=== PATIENT | female | born 1935 | race Caucasian/White ===

== ENCOUNTER → 2016-09-05 | Outpatient (CLI) | payer MEDICARE, MEDICAID ==
[~2016-09-05] MED LIST: ADVAIR 250/501 EA INH; ALBUTEROL0.09 MG/A2 INH; ALDACTONE25 M1 PO; ASPIRIN E.C.325 MG PO; ASPIRIN81 M1; B12,B-12,B 12500 MC1 PO; BACTRIM SS PO; CARDIZEM CD240 MG PO; CIPRO500 MG PO; COLACE100 MG PO; COSOPT 2%-0.5%10 ML OS; CRESTOR10 M1 PO; DELTASONE10 MG PO; DOXYCYCLINE100 M3 PO; DULCOLAX5 MG PO; DUONEB 3 MG/3 ML3 M1 NEB; ENABLEX7.5 MG; HUMALOG100 U/ML SC; HYDROCHLOROTHIA25 M1 PO; ISOSORBIDE MONO60 MG; K + POTASSIUM20 MEQ PO; LANTUS SOLOS100 U/M1 SC; LANTUS100 U/ML; LANTUS100 U/ML SC; LASIX10 MG/M1 IV; LASIX20 MG PO; LASIX40 MG PO; LEVOFLOXACIN500 MG PO; LIPITOR20 MG PO; LISINOPRIL5 MG PO; LOPRESSOR25 MG PO; LOPRESSOR50 M1 PO; LOVENOX30 MG/0.3 SC; MECLIZINE HCL25 M2 PO; METOPROLOL SR100 MG; METOPROLOL50 MG PO; MICRO-K PO; MOM30 M1 PO; MUCINEX600 MG PO; NEURONTIN300 MG PO; NITROGLYCERIN0.4 MG SL; NOVOLIN R100 U/ML SC; NOVOLOG 70/30 M10 ML SC; NOVOLOG FLEX100 U/ML; NOVOLOG FLEX100 U/ML SC; NOVOLOG MI100 UNIT/1 SQ; OCUFLOX 0.3% 5 M5 ML OS; PLAVIX75 M1 PO; PLAVIX75 MG PO; PREDNICOT10 MG PO; PREDNICOT20 MG PO; PREDNISONE10 MG PO; PROAIR HFA0.09 MG/AC INH; PROAIR HFA8.5 GM INH; SOLU-MEDROL40 MG IV; TRAMADOL HCL50 MG PO; TYLENOL325 M1 PO; VENTOLIN H0.09 MG/AC INH; VESICARE5 MG PO; VIBRAMYCIN100 MG PO; VISTARIL25 M1 PO; VITAMIN B121000 MCG PO; VITAMIN D1000 IU PO; ZESTRIL5 MG PO
== END ==
LOC: LAB 09:51
DX: E11.22 Type 2 diabetes mellitus with diabetic chronic kidney disease (principal); N18.3 Chronic kidney disease, stage 3 (moderate); I25.10 Atherosclerotic heart disease of native coronary artery without angina pectoris; R60.9 Edema, unspecified; I25.2 Old myocardial infarction; Z95.1 Presence of aortocoronary bypass graft; M47.894 Other spondylosis, thoracic region

== ENCOUNTER → 2016-12-15 | Outpatient (CLI) | payer MEDICARE, MEDICAID ==
[2016-12-15 10:27] LABS: POTASSIUM 4.9 mmol/L (3.5-5.1)
== END | disposition home or self-care (01) ==
LOC: LAB 10:00
PROVIDERS: Nurse Practitioner Family
DX: E87.5 Hyperkalemia (principal)

== ENCOUNTER 2016-12-23 21:00 | Emergency (ER) | payer MEDICARE, MEDICAID ==
[~2016-12-23] VITALS: Ht 160 cm; Wt 89.8 kg
[2016-12-23 21:10] VITALS: BP 161/85
[2016-12-23 21:36] LABS: BASO % 0.6 % (0.0-1.0); EOS # 0.5 10*3/uL (0.0-0.4); EOS % 7.3 % (1.0-4.0); HEMATOCRIT 37.1 % (37.0-47.0); HEMOGLOBIN 11.3 g/dl (12.0-16.0); LYMPH # 2.2 10*3/uL (1.3-4.4); MEAN CELL VOLUME 93.7 fl (81.0-99.0); MEAN CORPUSCULAR HGB 28.5 pg (27.0-31.0); MEAN CORPUSCULAR HGB CONC 30.5 g/dl (33.0-37.0); MEAN PLATELET VOLUME 10.8 fl (9.6-12.3); MONO # 0.6 10*3/uL (0.1-1.0); MONO % 8.6 % (3.0-9.0); NEUT # 3.3 10*3/uL (2.3-7.9); NEUT % 50.3 % (47.0-73.0); PLATELET COUNT AUTOMATED 158 10*3/uL (130-400); RED BLOOD COUNT 3.96 10*6/uL (4.10-5.10); RED CELL DISTRI WIDTH 13.2 % (0-14.5); WHITE BLOOD COUNT 6.5 10*3/uL (4.8-10.8)
[2016-12-23 21:52] LABS: ALBUMIN 3.4 gm/dl (3.1-4.5); BILIRUBIN, TOTAL 0.3 mg/dl (0.2-1.0); POTASSIUM 4.4 mmol/L (3.5-5.1)
[2016-12-23] MEDS ORDERED: HYDROCODONE BIT1 T11 PO (23:14)
== END 2016-12-23 23:20 | disposition home or self-care (01) ==
LOC: ED 21:00
PROVIDERS: Registered Nurse
DX: M79.604 Pain in right leg (principal); E11.9 Type 2 diabetes mellitus without complications; Z79.4 Long term (current) use of insulin; Z88.0 Allergy status to penicillin; Z79.899 Other long term (current) drug therapy

== ENCOUNTER → 2017-01-04 | Outpatient (CLI) | payer MEDICARE, MEDICAID ==
[~2017-01-04] MED LIST changes: +HYDROCODONE BIT1 T11 PO
== END | disposition home or self-care (01) ==
LOC: CARD 11:50
DX: E78.2 Mixed hyperlipidemia (principal); I10 Essential (primary) hypertension; I25.9 Chronic ischemic heart disease, unspecified; R00.2 Palpitations; I25.10 Atherosclerotic heart disease of native coronary artery without angina pectoris

== ENCOUNTER → 2017-01-26 | Outpatient (CLI) | payer MEDICARE, MEDICAID ==
[2017-01-26 11:45] LABS: BASO % 0.3 % (0.0-1.0); EOS # 0.8 10*3/uL (0.0-0.4); EOS % 7.5 % (1.0-4.0); HEMATOCRIT 39.9 % (37.0-47.0); LYMPH # 3.2 10*3/uL (1.3-4.4); LYMPH % 30.6 % (27.0-41.0); MEAN CELL VOLUME 94.5 fl (81.0-99.0); MEAN CORPUSCULAR HGB 28.4 pg (27.0-31.0); MEAN CORPUSCULAR HGB CONC 30.1 g/dl (33.0-37.0); MEAN PLATELET VOLUME 10.9 fl (9.6-12.3); MONO % 9.5 % (3.0-9.0); NEUT # 5.5 10*3/uL (2.3-7.9); NEUT % 51.8 % (47.0-73.0); PLATELET COUNT AUTOMATED 199 10*3/uL (130-400); RED BLOOD COUNT 4.22 10*6/uL (4.10-5.10); RED CELL DISTRI WIDTH 13.5 % (0-14.5); WHITE BLOOD COUNT 10.5 10*3/uL (4.8-10.8)
[2017-01-26 11:47] LABS: BILIRUBIN NEGATIVE (NEGATIVE); BLOOD 3+ (NEGATIVE); CLARITY SL CLOUDY (CLEAR); COLOR YELLOW (YELLOW); GLUCOSE NEGATIVE (NEGATIVE); KETONE NEGATIVE (NEGATIVE); LEUKO ESTERASE 2+ (NEGATIVE); NITRITE NEGATIVE (NEGATIVE); PH 5.5 (5.0-9.0); PROTEIN 1+ (NEGATIVE); SPECIFIC GRAVITY 1.025 (1.005-1.030); UROBILINOGEN 0.2 E.U./dl (0.2-1.0)
[2017-01-26 12:03] LABS: URINE TP/CRE RATIO 0.4 (<0.21)
[2017-01-26 12:10] LABS: ALBUMIN 3.7 gm/dl (3.1-4.5); PHOSPHOROUS 3.2 mg/dL (2.5-4.9); POTASSIUM 5.7 mmol/L (3.5-5.1)
[2017-01-26 12:36] LABS: FERRITIN 46.9 ng/mL (10.0-291.0); PTH INTACT 277.7 pg/mL (14.0-72.0); VITAMIN D, 25-HYDROXY 14.4 ng/mL (30-100)
[2017-01-26 12:45] LABS: HEMOGLOBIN A1c 7.6 % (4.8-5.6)
[2017-01-26 13:08] LABS: BACTERIA 2+; RBC 21-30 rbc/hpf (0-2); WBC TNTC wbc/hpf (0-5); YEAST 1+
== END | disposition home or self-care (01) ==
LOC: LAB 11:16
PROVIDERS: Internal Medicine Nephrology
DX: E11.21 Type 2 diabetes mellitus with diabetic nephropathy (principal); E11.22 Type 2 diabetes mellitus with diabetic chronic kidney disease; N18.3 Chronic kidney disease, stage 3 (moderate); D63.1 Anemia in chronic kidney disease; E21.1 Secondary hyperparathyroidism, not elsewhere classified

== ENCOUNTER 2017-01-27 15:49 | Emergency (ER) | payer MEDICARE, MEDICAID ==
[~2017-01-27] VITALS: Ht 160 cm; Wt 89.8 kg
[2017-01-27 15:57] VITALS: BP 158/67
[2017-01-27 16:53] LABS: BASO % 0.3 % (0.0-1.0); EOS # 0.6 10*3/uL (0.0-0.4); EOS % 5.3 % (1.0-4.0); HEMATOCRIT 37.7 % (37.0-47.0); HEMOGLOBIN 11.4 g/dl (12.0-16.0); LYMPH % 17.5 % (27.0-41.0); MEAN CELL VOLUME 93.5 fl (81.0-99.0); MEAN CORPUSCULAR HGB 28.3 pg (27.0-31.0); MEAN CORPUSCULAR HGB CONC 30.2 g/dl (33.0-37.0); MEAN PLATELET VOLUME 10.9 fl (9.6-12.3); MONO % 8.9 % (3.0-9.0); NEUT # 7.8 10*3/uL (2.3-7.9); NEUT % 67.7 % (47.0-73.0); PLATELET COUNT AUTOMATED 171 10*3/uL (130-400); RED BLOOD COUNT 4.03 10*6/uL (4.10-5.10); RED CELL DISTRI WIDTH 13.5 % (0-14.5); WHITE BLOOD COUNT 11.6 10*3/uL (4.8-10.8)
[2017-01-27 17:03] LABS: POTASSIUM 5.6 mmol/L (3.5-5.1)
== END 2017-01-27 18:34 | disposition home or self-care (01) ==
LOC: ED 15:49
PROVIDERS: Emergency Medicine
DX: K11.20 Sialoadenitis, unspecified (principal); J45.909 Unspecified asthma, uncomplicated; I25.10 Atherosclerotic heart disease of native coronary artery without angina pectoris; I50.30 Unspecified diastolic (congestive) heart failure; M19.90 Unspecified osteoarthritis, unspecified site; E11.9 Type 2 diabetes mellitus without complications; Z79.4 Long term (current) use of insulin; I25.2 Old myocardial infarction; E78.5 Hyperlipidemia, unspecified; I12.9 Hypertensive chronic kidney disease with stage 1 through stage 4 chronic kidney disease, or unspecified chronic kidney disease; N18.9 Chronic kidney disease, unspecified; Z88.0 Allergy status to penicillin; Z79.899 Other long term (current) drug therapy

== ENCOUNTER → 2017-02-15 | Outpatient (CLI) | payer MEDICARE, MEDICAID | END | disposition home or self-care (01) | LOC: US 16:54 | DX: E04.2 Nontoxic multinodular goiter (principal) ==

== ENCOUNTER → 2017-03-10 | Outpatient (CLI) | payer MEDICARE, MEDICAID ==
[2017-03-10 10:54] LABS: BASO % 0.3 % (0.0-1.0); EOS # 0.9 10*3/uL (0.0-0.4); EOS % 10.4 % (1.0-4.0); HEMATOCRIT 37.5 % (37.0-47.0); HEMOGLOBIN 11.8 g/dl (12.0-16.0); LYMPH % 22.6 % (27.0-41.0); MEAN CELL VOLUME 90.8 fl (81.0-99.0); MEAN CORPUSCULAR HGB 28.6 pg (27.0-31.0); MEAN CORPUSCULAR HGB CONC 31.5 g/dl (33.0-37.0); MEAN PLATELET VOLUME 10.4 fl (9.6-12.3); MONO # 0.8 10*3/uL (0.1-1.0); MONO % 9.3 % (3.0-9.0); NEUT # 5.1 10*3/uL (2.3-7.9); NEUT % 57.2 % (47.0-73.0); PLATELET COUNT AUTOMATED 187 10*3/uL (130-400); RED BLOOD COUNT 4.13 10*6/uL (4.10-5.10)
[2017-03-10 11:27] LABS: ALBUMIN 3.4 gm/dl (3.1-4.5); BILIRUBIN, TOTAL 0.3 mg/dl (0.2-1.0); POTASSIUM 3.9 mmol/L (3.5-5.1)
== END ==
LOC: LAB 10:35
PROVIDERS: Nurse Practitioner Family
DX: I10 Essential (primary) hypertension (principal); E66.9 Obesity, unspecified

== ENCOUNTER 2017-05-07 06:10 | Inpatient (IN) | payer MEDICARE, MEDICAID ==
[~2017-05-07] VITALS: Ht 160 cm; Wt 91.7 kg
[2017-05-07] VITALS (13 sets, daily range): BP systolic 115–198; BP diastolic 66–98
--- NOTE | ~2017-05-07 | CON ---
[place], [place] REPORT OF CONSULTATION NAME: MARIA ISABEL [facility]ELICIANO [id number] UNIT #: [id number] ROOM: 503 DOCTOR: LIZBET WOODS DPM BIRTHDATE: [birth year] DOS: 05/09/2017 SUBJECTIVE: The patient presents is an 82-year-old female who we treated in our office for chronic venous insufficiency, lymphedema in both lower extremities. The patient had Unna boots placed last . PAST MEDICAL HISTORY: Asthma, coronary artery disease, chronic kidney disease, diastolic heart failure, DJD, type 2 diabetes, essential hypertension, hyperlipidemia, macular degeneration, throat cancer. PAST SURGICAL HISTORY: Back surgery, bladder suspension procedure, appendectomy, CABG, triple bypass 3 years ago, cardiac catheterization, hysterectomy, total knee replacement in 2008. SOCIAL HISTORY: Nonsmoker. Denies alcohol or illicit drug use. FAMILY HISTORY: Mother at 32 from kidney cancer. Father at 69 from [place]. ALLERGIES: PENICILLIN, IODINE. PHYSICAL EXAMINATION: EXTREMITIES: Lower extremity examination, the capillary fill time is normal to all digits bilateral foot. The patient's Unna boots are intact and still pristine at this time. There are just placed on . Additionally, the patient has pads to both arches for plantar fascitis. ASSESSMENT: Edema, lymphedema, venous insufficiency, bilateral leg. PLAN: The patient's Unna boots are pristine and can be left on until morning. At that point, they can be removed. The patient's legs can be cleaned and I will return for a new Unna boots application. If the patient is discharged before then, we will reapply them weekly on outpatient basis. LIZBET WOODS DPM CM:CONSTR:REPORT OF CONSULTATION 1222 05/12/17 0653 interface
[2017-05-07 07:01] LABS: BASO % 0.5 % (0.0-1.0); EOS # 0.5 10*3/uL (0.0-0.4); EOS % 7.3 % (1.0-4.0); LYMPH # 1.7 10*3/uL (1.3-4.4); LYMPH % 22.6 % (27.0-41.0); MEAN CELL VOLUME 87.7 fl (81.0-99.0); MEAN CORPUSCULAR HGB 27.1 pg (27.0-31.0); MEAN PLATELET VOLUME 10.9 fl (9.6-12.3); MONO % 12.8 % (3.0-9.0); NEUT # 4.2 10*3/uL (2.3-7.9); NEUT % 56.7 % (47.0-73.0); PLATELET COUNT AUTOMATED 185 10*3/uL (130-400); RED BLOOD COUNT 4.79 10*6/uL (4.10-5.10); RED CELL DISTRI WIDTH 13.5 % (0-14.5); WHITE BLOOD COUNT 7.4 10*3/uL (4.8-10.8)
--- NOTE | 2017-05-07 07:11 | NUR ---
PATIENT IS CURRENTLY IN RADIOLOGY AT THIS TIME. VANDANA BALDWIN
--- NOTE | 2017-05-07 07:15 | NUR ---
DR. ASTUDILLO MADE AWARE OF THE PULSE OX DECREASING, V.O. GIVEN FOR OXYGEN DECREASE OXYGEN SET AT 2 LITERS VIA NASAL CANNULA, V.O. REPEATED BACK AT THIS TIME. VANDANA BALDWIN
[2017-05-07 07:16] LABS: ALBUMIN 2.7 gm/dl (3.1-4.5); ALKALINE PHOSPHATASE 119 U/L (45-117); BUN 20 mg/dl (7-24); CHLORIDE 103 mmol/L (98-107); CREATININE 1.77 mg/dL (0.55-1.02); POTASSIUM 3.3 mmol/L (3.5-5.1); SGOT/AST 21 IU/L (3-35); SGPT/ALT 20 U/L (12-78); SODIUM 139 mmol/L (136-145); TOTAL PROTEIN 6.7 gm/dL (6.4-8.2)
--- NOTE | 2017-05-07 07:19 | NUR ---
PATIENT STATES THAT SHE HAS HAD A DECREASE IN PAIN AND CURRENTLY RATES HER PAIN A 7/10, SKIN IS PINK, WARM, AND DRY, RESPIRATIONS ARE EASY AND NONLABORED, CALL LIGHT IN REACH OF THE PATIENT, FAMILY IS IN THE ROOM WITH THE PATIENT, CONTINUING TO MONITOR THE PATIENT. DENNYRN
--- NOTE | 2017-05-07 07:29 | NUR ---
PATIENT STATED THAT SHE WAS COLD, PATIENT GIVEN A WARM BLANKET AT THIS TIME, PATIENT ASSISTED INTO POSITION OF COMFORT, CALL LIGHT IN REACH OF THE PATIENT, CONTINUING TO MONITOR THE PATIENT. VANDANA BALDWIN
--- NOTE | 2017-05-07 08:40 | NUR ---
PATIENT PLACED ON THE BED SULTANA IN ATTEMPTS TO COLLECT URINE. VANDANA BALDWIN
--- NOTE | 2017-05-07 08:45 | NUR ---
PATIENT WAS NOT ABLE TO URINATE SO THE PATIENT WAS REMOVED FROM THE BED SULTANA, PATIENT IS AWARE OF THE FACT THAT WE NEED URINE, STATES THAT SHE FEELS SHE IS UNABLE TO GIVE ANY URINE AT THIS TIME, THE WAS MADE AWARE OF THIS SITUATION, CONTINUING TO MONITOR THE PATIENT. VANDANA BALDWIN
--- NOTE | 2017-05-07 09:30 | NUR ---
V.O. GIVEN FOR STRAIGHT CATHETER FOR URINE BY DR. ASTUDILLO, V.O. REPEATED BACK TO DR. ASTUDILLO AT THIS TIME. VANDANA BALDWIN
[2017-05-07 09:39] LABS: BILIRUBIN NEGATIVE (NEGATIVE); BLOOD 3+ (NEGATIVE); CLARITY CLOUDY (CLEAR); COLOR YELLOW (YELLOW); GLUCOSE TRACE (NEGATIVE); KETONE NEGATIVE (NEGATIVE); LEUKO ESTERASE TRACE (NEGATIVE); NITRITE NEGATIVE (NEGATIVE); SPECIFIC GRAVITY 1.025 (1.005-1.030); UROBILINOGEN 0.2 E.U./dl (0.2-1.0)
--- NOTE | 2017-05-07 09:45 | NUR ---
MADE DR. ASTUDILLO AWARE OF THE PATIENTS BLOOD PRESSURE OF 186/92 DR. ASTUDILLO STATED THAT HE WOULD ORDER SOMETHING FOR HER BLOOD PRESSURE. VANDANA BALDWIN
[2017-05-07 09:48] LABS: BACTERIA 4+; WBC TNTC wbc/hpf (0-5)
--- NOTE | 2017-05-07 10:21 | NUR ---
PATIENT TAKEN TO ROOM 503-2 AND PLACED IN THE BED AND CARE TRANSFERRED TO HARRISON SUBRAMANIAN RN AND VANDANA PRATHER. VANDANA BALDWIN
--- NOTE | 2017-05-07 11:13 | NUR ---
MEDICATIONS VERIFIED BY PHARMACY
--- NOTE | 2017-05-07 11:17 | NUR ---
A 82, admitted to 5E, under the services of AYO Hair DO with a diagnosis of HIP PAIN. Chief complaint is RIGHT KNEE AND RIGHT HIP PAIN. Patient arrived via wheel chair from ER. Monitor applied. Initial assessment completed. Vital signs taken and recorded. AYO HAIR DO notified of admission to the unit. Orders received. See assessment for past medical history, medications and allergies. Patient and/or family oriented to unit. [facility] visitation policy reviewed. Clothing/patient valuable form completed. HARRISON SUBRAMANIAN
--- NOTE | 2017-05-07 19:30 | NUR ---
ASSUMED CARE OF PT AT THIS TIME, PT SITTING UP IN BED ALERT AND OREINTED, RESPS EASY AND NONLABORED CALL LIGHT WITH IN REACH
--- NOTE | 2017-05-07 20:39 | NUR ---
PT C/O RIGHT HIP PAIN ADMINSITERED NORCO PO PRN PER ORDERS, WILL MONITOR EFFECTS
--- NOTE | 2017-05-07 21:39 | NUR ---
PT REPORTS THAT PAIN LEVEL HAS DECREASED IN RIGHT HIP, NORCO PO PRN EFFECTIVE
[2017-05-08] VITALS: BP 170/79
--- NOTE | 2017-05-08 00:56 | NUR ---
PATIENT MEDICATED WITH NORCO FOR COMPLAINTS OF RIGHT HIP PAIN AT 0027 WITH EFFECTIVE RESULTS NOTED. RESTING IN BED WITH EYES CLOSED AT THIS TIME. NO SIGNS OR SYMPTOMS OF DISTRESS NOTED. WILL CONTINUE TO MONITOR. CALL LIGHT IN REACH.
--- NOTE | 2017-05-08 05:36 | NUR ---
PATIENT MEDICATED WITH NORCO FOR COMPLAINTS OF RIGHT HIP PAIN AT 0514 WITH SOME RELIEF FROM TH PAIN. WILL CONTINUE TO MONITOR. CALL LIGHT IN REACH.
--- NOTE | 2017-05-08 05:49 | NUR ---
PATIENT ALSO MEDICATED WITH DULCOLAX FOR COMPLAINTS OF CONSTIPATION. WILL MONITOR FOR EFFECTIVENESS.
[2017-05-08 06:34] LABS: BASO % 0.5 % (0.0-1.0); EOS # 0.5 10*3/uL (0.0-0.4); EOS % 8.6 % (1.0-4.0); HEMATOCRIT 39.1 % (37.0-47.0); HEMOGLOBIN 11.9 g/dl (12.0-16.0); LYMPH # 1.2 10*3/uL (1.3-4.4); LYMPH % 21.1 % (27.0-41.0); MEAN CELL VOLUME 90.3 fl (81.0-99.0); MEAN CORPUSCULAR HGB 27.5 pg (27.0-31.0); MEAN CORPUSCULAR HGB CONC 30.4 g/dl (33.0-37.0); MEAN PLATELET VOLUME 10.7 fl (9.6-12.3); MONO # 0.9 10*3/uL (0.1-1.0); MONO % 14.9 % (3.0-9.0); NEUT # 3.2 10*3/uL (2.3-7.9); NEUT % 54.7 % (47.0-73.0); PLATELET COUNT AUTOMATED 152 10*3/uL (130-400); RED BLOOD COUNT 4.33 10*6/uL (4.10-5.10); RED CELL DISTRI WIDTH 13.7 % (0-14.5); WHITE BLOOD COUNT 5.8 10*3/uL (4.8-10.8)
[2017-05-08 06:48] LABS: ALBUMIN 2.5 gm/dl (3.1-4.5); CREATININE 1.62 mg/dL (0.55-1.02); MAGNESIUM 1.9 mg/dL (1.5-2.1); PHOSPHOROUS 2.6 mg/dL (2.5-4.9); POTASSIUM 3.8 mmol/L (3.5-5.1)
[2017-05-08 06:59] LABS: THYROID STIM HORMONE (HS) 8.45 uIU/ml (0.358-4.75); TOTAL PROTEIN 5.9 gm/dL (6.4-8.2)
[2017-05-08 08:00] VITALS: BP 156/78
--- NOTE | 2017-05-08 09:33 | NUR ---
Received order for snf placement. process planner in to see patient to discuss. Patient stated she has been to [place] twice in the past and would like to go there again. Will contact Jessica and fax referral.
--- NOTE | 2017-05-08 09:40 | NUR ---
DR. WOODS HAS BEEN NOTIFIED OF CONSULT AND WILL SEE PATIENT TOMORROW.
--- NOTE | 2017-05-08 10:42 | NUR ---
Secure Software Assessor in to talk to patient. Patient states lives at home with family. There are 5 steps in the home. Physician: eddie grant Pharmacy: [facility] [place] [facility] services: none Patient's level of ADLs: MINIMAL ASSIST Patient has working utilities: all working DME: cane, walker, shower chair Follow-up physician's appointment after d/c: will be made by hospitalist nurse director upon discharge Does patient want to access PORTAL?: no Discharge plan with patient by mission planner, patient was referred to [facility], patient will need a 3 night stay to qualify, case management will follow . SHARAN MENDIOLA
--- NOTE | 2017-05-08 11:04 | NUR ---
PHYSICAL THERAPY PAtient evaluated on 5, full evaluation to follow. Continue with PT as per plan of care with fall, vertigo, 02 and acute debility precautions. Will require SNF for impaired mobility in order to return to home at (i) PL. PAtient is moderate complexity via chart review, tests and evaluation 61665. Thank you for this referral. Mirtha vargas,PT
[2017-05-08 12:00] VITALS: BP 160/72
[2017-05-08 13:03] VITALS: BP 160/72
--- NOTE | 2017-05-08 13:45 | NUR ---
PHYSICAL THERAPY Nayla seen this PM 1:1, Pt said that she was dizzy and just could not go this afternoon. Will check back tomorrow. EAGLE MARC DIRECTOR OF CONTENT MARKETING,
--- NOTE | 2017-05-08 14:53 | NUR ---
Occupational Therapy evaluation completed this date on 5 with full eval to follow. PRecautions included fall risk,poor standing tolerance, severe back pain, moderate complexity [id number]. Recommend OT per POC and SNF upon d/c to enable safe return home at [facility].Thank you for this referral. Dorie López OTR/l
--- NOTE | 2017-05-08 15:06 | NUR ---
Patient referred to [facility], waiting on acceptance.
[2017-05-08 16:00] VITALS: BP 166/96
[2017-05-08 20:00] VITALS: BP 146/80
--- NOTE | 2017-05-08 21:39 | NUR ---
NORCO GIVEN FOR PAIN IN LOWER BACK AND HIP. PAIN RATED 7/10 WILL MONITOR.
--- NOTE | 2017-05-08 22:15 | NUR ---
NORCO EFFECTIVE. NO C/O OF PAIN .
[2017-05-09] VITALS: BP 168/104
--- NOTE | 2017-05-09 00:40 | NUR ---
DR. NANCE NOTIFIED OF PATIENTS ELEVATED BLOOD PRESSURE. SEE NEW ORDERS AND FLOWSHEETS.
--- NOTE | 2017-05-09 02:15 | NUR ---
DR. NANCE NOTIFIED OF PATIENTS C/O HEAVINESS IN HER CHEST AND DIFFICULTY BREATHING. SEE NEW ORDERS. BLOOD PRESSURE REAVALUATED HYDRALAZINE EFFECTIVE.
[2017-05-09 04:00] VITALS: BP 178/86
--- NOTE | 2017-05-09 04:30 | NUR ---
NORCO GIVEN FOR BACK PAIN. PATIENT STILL C/O DIFFICULTY BREATHING AND HEAVINESS. SHE ALSO STATED THAT SHE HAD TO TAKE HER RING OFF BECAUSE IT WAS GETTING TOO TIGHT AND ID BAND WAS ALSO TIGHT. DR. NANCE NOTIFIED IV FLUIDS STOPPED. SEE NEW ORDERS.
--- NOTE | 2017-05-09 04:30 | NUR ---
NORCO GIVEN FOR PAIN IN LOWER BACK RATED 7/10. WILL MONITOR.
--- NOTE | 2017-05-09 05:15 | NUR ---
NORCO EFFECTIVE. PATIENT ASLEEP WITH RESPIRATIONS >12
--- NOTE | 2017-05-09 05:30 | NUR ---
PER PATIENT HER BREATHING HAS IMPROVED AND NORCO EFFECTIVE, PATIENT ASLEEP WITH RESPIRATIONS >12.
[2017-05-09 07:33] LABS: CREATININE 1.61 mg/dL (0.55-1.02); POTASSIUM 3.2 mmol/L (3.5-5.1)
[2017-05-09 08:00] VITALS: BP 146/68; BP 153/58
--- NOTE | 2017-05-09 08:35 | NUR ---
PHYSICAL THERAPY Mrs Jimenez was seen this AM 1:1 for her therapy. Pt was supine in bed, said that she just got back in bed from using the bedside commode. Pt said that her BP was up and she did not feel good this morning. Pt on 1 L o2 and was 98% at this time, BP 170/66. Nayla said that she just wants to sleep. I told her that i would stop back later today. EAGLE MACR MAINSPRING FABRICATION SUPERVISOR.
--- NOTE | 2017-05-09 09:03 | NUR ---
Hopsital exemption completed online in [employer] system. Patient has been accepted to [facility] and can go after 3 night stay on Monday05/10/17 if medically stable for discharge.
--- NOTE | 2017-05-09 10:43 | NUR ---
PHYSICAL THERAPY Back this AM to treat Nayla and she was eating her breakfast. EAGLE MARC INDOOR PLANT TECHNICIAN.
[2017-05-09 12:00] VITALS: BP 165/70
--- NOTE | 2017-05-09 13:13 | NUR ---
PHYSICAL THERAPY Back this PM to treat Mrs Jimenez for her therapy session and talked into her gait. Transfer supine/sit MIN A X 1, sitting balance CG X 1, X 5 min. Sit/stand standing balance with wheeled walker MOD A X 1. Then gait 32' X 1, with wheeled walker MOD A X 1, cueing for gait, walker turn safety. Pt on 1/2 L o2 and did not get SOB with this gait. Pt back supine in bed, call light and family in to visit, treatment time 18 min. EAGLE MARC HEEL SEWER.
[2017-05-09 16:00] VITALS: BP 137/60
--- NOTE | 2017-05-09 17:07 | NUR ---
PATIENT RELAXED, NO NEEDS VOICED AT THIS TIME. AWAKE & ALERT, WAITING ON DINNER.
[2017-05-09 20:00] VITALS: BP 170/71
--- NOTE | 2017-05-09 21:00 | NUR ---
DROWSY, RESTING IN BED WITH NO DISTRESS NOTED. RESPIRATIONS EASY. LUNGS DIMINISHED, CLEAR. PULSE OX 100% 0.5 L. BILATERAL UNNA BOOTS IN PLACE. CALL LIGHT WITHIN REACH. NO VOICED COMPLAINTS
--- NOTE | 2017-05-09 21:51 | NUR ---
MEDICATED WITH NORCO PER PRN ORDER FOR COMPLAINTS OF RIGHT HIP PAIN RATING A 6. CALL LIGHT WITHIN REACH. WILL MONITOR FOR EFFECTIVENESS
[2017-05-10] VITALS: BP 151/63
--- NOTE | 2017-05-10 | NUR ---
EARLIER NORCO EFFECTIVE. PATIENT RESTING WITH EYES CLOSED. RESPIRATIONS EASY. VSS. O2 REMAINS IN USE AT 0.5L AT PATIENT'S INSISTENCE. CALL LIGHT WITHIN REACH.
--- NOTE | 2017-05-10 06:00 | NUR ---
SLEPT THROUGHOUT NIGHT WIHT NO DISTRESS NOTED. RESPIRATIONS EASY. O2 REMAINS IN USE AT PATIENT'S INSISTENCE. BILATERAL UNNA BOOTS MAINTAINED. CALL LIGHT WITHIN REACH. NO VOICED COMPLAINTS THIS SHIFT
[2017-05-10 06:20] LABS: BASO % 0.3 % (0.0-1.0); EOS # 0.5 10*3/uL (0.0-0.4); EOS % 7.3 % (1.0-4.0); HEMATOCRIT 36.2 % (37.0-47.0); HEMOGLOBIN 10.9 g/dl (12.0-16.0); LYMPH # 1.5 10*3/uL (1.3-4.4); LYMPH % 23.7 % (27.0-41.0); MEAN CELL VOLUME 88.9 fl (81.0-99.0); MEAN CORPUSCULAR HGB 26.8 pg (27.0-31.0); MEAN CORPUSCULAR HGB CONC 30.1 g/dl (33.0-37.0); MEAN PLATELET VOLUME 11.3 fl (9.6-12.3); MONO % 15.6 % (3.0-9.0); NEUT # 3.3 10*3/uL (2.3-7.9); NEUT % 52.9 % (47.0-73.0); PLATELET COUNT AUTOMATED 143 10*3/uL (130-400); RED BLOOD COUNT 4.07 10*6/uL (4.10-5.10); WHITE BLOOD COUNT 6.2 10*3/uL (4.8-10.8)
[2017-05-10 06:48] LABS: CREATININE 1.6 mg/dL (0.55-1.02); POTASSIUM 3.4 mmol/L (3.5-5.1)
[2017-05-10 08:00] VITALS: BP 109/71; BP 160/80
--- NOTE | 2017-05-10 09:25 | NUR ---
case management visits with patient, patient has been accepted by and is able to go to [facility] today if medically stable, case management/case planner will follow
--- NOTE | 2017-05-10 11:20 | NUR ---
PATIENT SEEN 1:1 THIS DATE. IDENTIFIED BY NAME AND DATE OF . PATIENT COMPLETED STAND PIVOT XFER WYATT BED TO BEDSIDE COMMODE WITH USE FWW AND VERBAL CUES SAFETY. PATIENT COMPLETED TOILETING TASK WYATT WITH VERBAL CUES USE FWW SUPPORT ONE HANDED TECHNIQUES. PATIENT COMPLETED STAND PIVOT XFER BEDISIDE COMMODE TO BED CGA WITH USE FWW AND VERBAL CUES FWW MANAGEMENT THIS DATE. COMPLETED LB DRESSING HALIMA NON SLIP SOCKS PRIOR XFER THIS DATE DEP SECONDARY REPORTS BACK PAIN. EDUCATED PATIENT BENEFITS AE FOR INCREASE INDEPENDENCE. PATIENT COMPLETED STAND TOLERANCE ACTIVITY APPROX 30 SECONDS WITH C/O FATIGUE CGA USE FWW SUPPORT STANDING STATIC. PATIENT ASSISTED PER REQUEST SIT SUPINE TO REST MODA LIFT B LEGS INTO BED THIS DATE. CONTINUE TOWARDS PLAN OF CARE. JACOBY LUONG/Zaynab
[2017-05-10 12:00] VITALS: BP 156/83
--- NOTE | 2017-05-10 12:04 | NUR ---
PATIENT STATES THAT SHE DOES WANT TO BE A FULL CODE. NOTIFIED OF PATIENT'S PREFERNCE.
--- NOTE | 2017-05-10 13:39 | NUR ---
PHYSICAL THERAPY CO-SIGN I approve of the Phyical Therapy notes written above. BRANNON ADAM PT
--- NOTE | 2017-05-10 13:58 | NUR ---
Discharge instructions reviewed with patient/family. Patient receptive and verbalizes understanding. Follow-up care arranged. Written instructions given to patient/family. HEPLOCK REMOVED. PATIENT TRANSPORTED TO [facility] BY PRIVATE CAR (DAUGHTER). REPORT GIVEN TO KIMMY @ [facility]. YAMILKA MARCSU
--- NOTE | 2017-05-11 14:13 | NUR ---
OCCUPATIONAL THERAPY CO-SIGN I approve of the Occupational Therapy notes written above. ASHISH FLORES OTR/Zaynab
== END 2017-05-10 13:58 | disposition other institution (70) | DRG 555 ==
LOC: ED 06:10 → 5E 09:49 → EDHOLD 09:49 → 5E 09:55
PROVIDERS: Emergency Medicine Emergency Medical Services; Family Medicine; Internal Medicine; ADMIT Internal Medicine
DX: M25.551 Pain in right hip (principal); E43 Unspecified severe protein-calorie malnutrition; I13.0 Hypertensive heart and chronic kidney disease with heart failure and stage 1 through stage 4 chronic kidney disease, or unspecified chronic kidney disease; I50.32 Chronic diastolic (congestive) heart failure; E11.22 Type 2 diabetes mellitus with diabetic chronic kidney disease; E87.6 Hypokalemia; E78.5 Hyperlipidemia, unspecified; E11.42 Type 2 diabetes mellitus with diabetic polyneuropathy; I25.10 Atherosclerotic heart disease of native coronary artery without angina pectoris; N18.3 Chronic kidney disease, stage 3 (moderate); J45.909 Unspecified asthma, uncomplicated; H35.30 Unspecified macular degeneration; R31.9 Hematuria, unspecified; M19.90 Unspecified osteoarthritis, unspecified site; E66.01 Morbid (severe) obesity due to excess calories; M54.9 Dorsalgia, unspecified; R82.71 Bacteriuria; I87.2 Venous insufficiency (chronic) (peripheral); Z66 Do not resuscitate; Z51.5 Encounter for palliative care; Z96.651 Presence of right artificial knee joint; I25.2 Old myocardial infarction; Z88.0 Allergy status to penicillin; Z91.041 Radiographic dye allergy status; Z95.1 Presence of aortocoronary bypass graft; Z90.710 Acquired absence of both cervix and uterus; Z98.42 Cataract extraction status, left eye; Z82.49 Family history of ischemic heart disease and other diseases of the circulatory system; Z83.3 Family history of diabetes mellitus; Z82.3 Family history of stroke; Z80.51 Family history of malignant neoplasm of kidney; Z79.4 Long term (current) use of insulin; Z79.899 Other long term (current) drug therapy; Z68.35 Body mass index [BMI] 35.0-35.9, adult

== ENCOUNTER 2017-05-13 00:52 | Inpatient (IN) | payer MEDICARE, MEDICAID ==
[2017-05-13] VITALS (16 sets, daily range): BP systolic 131–199; BP diastolic 74–117
[~2017-05-13] VITALS: Ht 160 cm; Wt 92.0 kg
--- NOTE | ~2017-05-13 | CON ---
[place], [place] REPORT OF CONSULTATION NAME: MARIA ISABEL FELICIANO UNIT #: [id number] ROOM: 407 DOCTOR: LIZBET WOODS DPM BIRTHDATE: [birth year] DOS: 05/13/2017 SUBJECTIVE: The patient presents 82-year-old female who is readmitted apparently with shingles. The patient was seen on Monday for chronic venous insufficiency and lymphedema. The patient had Unna boots placed at the snf by Dr. Tolbert yesterday. PAST MEDICAL HISTORY: Coronary artery disease, asthma, chronic kidney disease, diastolic heart failure, DJD, type 2 diabetes, essential hypertension, hyperlipidemia, macular degeneration, throat CA. PAST SURGICAL HISTORY: Back surgery, bladder suspension procedure, appendectomy, CABG, triple bypass 3 years ago, cardiac catheterization, hysterectomy, total knee replacement in 2008. SOCIAL HISTORY: Denies smoking, alcohol or illicit drug use. ALLERGIES: PENICILLIN and IODINE. PHYSICAL EXAMINATION: EXTREMITIES: Lower extremity: The Unna boots which were placed yesterday are intact with no breakthrough drainage, no signs of complication. The bandages are in good condition and do not need to be changed until next week. ASSESSMENT: Chronic venous insufficiency, lymphedema, bilateral lower leg. PLAN: Evaluation and management, keep the Unna boots intact. If the patient is still in house on , I will change the Unna boot, otherwise they can be done on an outpatient basis. LIZBET WOODS DPM CM:CONSTR:REPORT OF CONSULTATION 1115 05/13/17 1156 interface
[2017-05-13 01:20] LABS: BASO % 0.6 % (0.0-1.0); EOS # 0.4 10*3/uL (0.0-0.4); EOS % 6.5 % (1.0-4.0); HEMATOCRIT 40.4 % (37.0-47.0); HEMOGLOBIN 12.6 g/dl (12.0-16.0); LYMPH # 2.1 10*3/uL (1.3-4.4); LYMPH % 30.5 % (27.0-41.0); MEAN CORPUSCULAR HGB 27.5 pg (27.0-31.0); MEAN CORPUSCULAR HGB CONC 31.2 g/dl (33.0-37.0); MEAN PLATELET VOLUME 10.4 fl (9.6-12.3); MONO # 0.8 10*3/uL (0.1-1.0); NEUT # 3.4 10*3/uL (2.3-7.9); NEUT % 50.3 % (47.0-73.0); PLATELET COUNT AUTOMATED 179 10*3/uL (130-400); RED BLOOD COUNT 4.59 10*6/uL (4.10-5.10); RED CELL DISTRI WIDTH 14.2 % (0-14.5); WHITE BLOOD COUNT 6.7 10*3/uL (4.8-10.8)
[2017-05-13 01:28] LABS: BILIRUBIN NEGATIVE (NEGATIVE); BLOOD 2+ (NEGATIVE); CLARITY SL CLOUDY (CLEAR); COLOR YELLOW (YELLOW); GLUCOSE 1+ (NEGATIVE); KETONE NEGATIVE (NEGATIVE); LEUKO ESTERASE NEGATIVE (NEGATIVE); NITRITE NEGATIVE (NEGATIVE); PH 7.5 (5.0-9.0); SPECIFIC GRAVITY 1.015 (1.005-1.030); UROBILINOGEN 0.2 E.U./dl (0.2-1.0)
[2017-05-13 01:30] LABS: ACT PARTIAL THROMBO TIME 23.6 SECONDS (20.8-31.5)
[2017-05-13 01:34] LABS: BACTERIA 1+
[2017-05-13 01:36] LABS: ALBUMIN 2.5 gm/dl (3.1-4.5); CREATININE 1.79 mg/dL (0.55-1.02); POTASSIUM 3.6 mmol/L (3.5-5.1); TOTAL PROTEIN 6.6 gm/dL (6.4-8.2)
[2017-05-13 01:37] LABS: TROPONIN I 0.068 ng/ml (<0.045)
[2017-05-13] MEDS ORDERED: PRINIVIL10 MG PO (02:14)
[2017-05-13] MEDS ORDERED: KLOR-CON M2020 ME1 PO (02:15)
[2017-05-13] MEDS ORDERED: MILK OF MA400 MG/5 M PO (02:15)
[2017-05-13] MEDS ORDERED: KENALOG 0.1%80 GM T (02:16)
[2017-05-13] MEDS ORDERED: COLACE100 MG PO (02:16)
[2017-05-13] MEDS ORDERED: Clopidogrel75 MG PO (02:18)
[2017-05-13] MEDS ORDERED: LOPRESSOR50 M1 PO (02:18)
[2017-05-13] MEDS ORDERED: NOVOLOG10 ML SQ (02:18)
[2017-05-13] MEDS ORDERED: OXYBUTYNIN5 MG PO (02:19)
[2017-05-13] MEDS ORDERED: LANTUS SOL100 UNIT/1 SQ (02:19)
[2017-05-13] MEDS ORDERED: TIMOLOL MALEATE10 ML OS (02:20)
[2017-05-13] MEDS ORDERED: DORZOLAMIDE HCL10 ML OS (02:20)
[2017-05-13] MEDS ORDERED: DUONEB 3 MG/3 ML3 M1 INH (02:21)
--- NOTE | 2017-05-13 03:46 | NUR ---
A 82 YEAR OLD FEMALE ADMITTED WITH HYPERTENSIVE EMERGENCY, INTRACTABLE PAIN, SHINGLES, AND DEHYDRATION UNDER DR. CHRISTIAN'S SERVICES.
--- NOTE | 2017-05-13 06:00 | NUR ---
DR. COBB NOTIFIED OF CRITICAL TROPONIN. NO NEW ORDERS.
--- NOTE | 2017-05-13 07:30 | NUR ---
TROPONIN 0.062 DR TREJO NOTIFIED.
--- NOTE | 2017-05-13 07:56 | NUR ---
Shingles rash to R upper thigh and going to groin area, along outside of R hip going to back. Dr. Wong aware. Will continue to monitor.
--- NOTE | 2017-05-13 10:08 | NUR ---
NORCO GIVEN FOR C/O PAIN TO LOWER ABD OF 9/10. WILL CONT TO MONITOR. CALL LIGHT IN REACH.
--- NOTE | 2017-05-13 11:06 | NUR ---
Shingles rash noted right lower back, to groin and right upper thigh. No drainage noted. No odor. Patient denies pain at time of assessment. Unnaboots to bilateral lower extremities applied by Dr. Major 05-12-17 intact. + 3 pitting edema noted to bilateral feet. Capillary refill <3 seconds. Calazime to rash on groin recommended.
--- NOTE | 2017-05-13 11:08 | NUR ---
GAMA EFF FOR PAIN. WILL CONT TO MONITOR. CALL LIGHT IN REACH.
--- NOTE | 2017-05-13 17:00 | NUR ---
SPOKE TO [facility] TO HAVE MED REC FAXED. AWAITING FAX.
--- NOTE | 2017-05-13 17:04 | NUR ---
MED REC UPDATED.
--- NOTE | 2017-05-13 17:36 | NUR ---
PT C/O INCREASED SOB THAT CAME ON THIS AFTERNOON PER PT WITH NO OTHER SYMPTOMS. LUNG DIMINISHED T/O. DR TREJO NOTIFIED OF C/O.
--- NOTE | 2017-05-13 22:30 | NUR ---
MORPHINE EFFECTIVE FOR PAIN.
--- NOTE | 2017-05-13 23:53 | NUR ---
PATIENT HAS BP OF 172/82 M. LABETALOL 10MG GIVEN. WILL REASSESS.
[2017-05-14] VITALS: BP 172/82
--- NOTE | 2017-05-14 01:16 | NUR ---
24 HR chart check completed.
[2017-05-14 01:39] VITALS: BP 168/72
[2017-05-14 06:12] LABS: BASO % 0.4 % (0.0-1.0); EOS # 0.5 10*3/uL (0.0-0.4); EOS % 9.8 % (1.0-4.0); HEMATOCRIT 34.8 % (37.0-47.0); LYMPH # 1.7 10*3/uL (1.3-4.4); LYMPH % 32.4 % (27.0-41.0); MEAN CORPUSCULAR HGB 27.5 pg (27.0-31.0); MEAN CORPUSCULAR HGB CONC 30.2 g/dl (33.0-37.0); MEAN PLATELET VOLUME 10.8 fl (9.6-12.3); MONO # 0.6 10*3/uL (0.1-1.0); MONO % 11.9 % (3.0-9.0); NEUT # 2.4 10*3/uL (2.3-7.9); NEUT % 45.1 % (47.0-73.0); PLATELET COUNT AUTOMATED 167 10*3/uL (130-400); RED BLOOD COUNT 3.82 10*6/uL (4.10-5.10); RED CELL DISTRI WIDTH 14.6 % (0-14.5); WHITE BLOOD COUNT 5.3 10*3/uL (4.8-10.8)
[2017-05-14 06:19] LABS: HEMOGLOBIN 10.5 g/dl (12.0-16.0); MEAN CELL VOLUME 91.1 fl (81.0-99.0)
[2017-05-14 06:33] LABS: CREATININE 1.6 mg/dL (0.55-1.02); MAGNESIUM 1.9 mg/dL (1.5-2.1); POTASSIUM 3.9 mmol/L (3.5-5.1)
[2017-05-14 08:00] VITALS: BP 160/70
[2017-05-14 12:00] VITALS: BP 148/62
[2017-05-14 16:00] VITALS: BP 145/57
--- NOTE | 2017-05-14 17:41 | NUR ---
PATIENT RESTING IN BED WITH NO COMPLAINTS VOICED AT THIS TIME. MEDICATIONS TAKEN WITHOUT DIFFICULTY. CLAL LIGHT IN REACH.
[2017-05-14 20:00] VITALS: BP 140/62; BP 140/66
[2017-05-15] VITALS: BP 148/72
[2017-05-15 04:13] VITALS: BP 145/70
[2017-05-15 07:20] LABS: BASO % 0.3 % (0.0-1.0); EOS # 0.4 10*3/uL (0.0-0.4); HEMATOCRIT 33.3 % (37.0-47.0); HEMOGLOBIN 9.9 g/dl (12.0-16.0); LYMPH % 33.5 % (27.0-41.0); MEAN CORPUSCULAR HGB CONC 29.7 g/dl (33.0-37.0); MEAN PLATELET VOLUME 10.7 fl (9.6-12.3); MONO # 0.6 10*3/uL (0.1-1.0); MONO % 10.3 % (3.0-9.0); NEUT # 2.8 10*3/uL (2.3-7.9); NEUT % 48.7 % (47.0-73.0); PLATELET COUNT AUTOMATED 177 10*3/uL (130-400); RED BLOOD COUNT 3.66 10*6/uL (4.10-5.10); RED CELL DISTRI WIDTH 14.7 % (0-14.5); WHITE BLOOD COUNT 5.8 10*3/uL (4.8-10.8)
[2017-05-15 07:47] LABS: CREATININE 1.96 mg/dL (0.55-1.02); POTASSIUM 4.6 mmol/L (3.5-5.1)
[2017-05-15 08:00] VITALS: BP 145/61
[2017-05-15] MEDS ORDERED: METOPROLOL TART50 M1 PO (09:52)
[2017-05-15] MEDS ORDERED: NYSTOP60 GM T (09:52)
[2017-05-15] MEDS ORDERED: LYRICA75 M1 PO (09:52)
[2017-05-15] MEDS ORDERED: ACYCLOVIR800 MG PO (09:52)
[2017-05-15] MEDS ORDERED: DULE1ARO INH (09:52)
--- NOTE | 2017-05-15 11:10 | NUR ---
Patient being discharged back to [facility], transportation scheduled for 12:00 noon with [facility]. NH, nursing and family notified.
--- NOTE | 2017-05-15 11:39 | NUR ---
Discharge instructions reviewed with patient/family. Patient receptive and verbalizes understanding. Follow-up care arranged. Written instructions given to patient/family. JAIRO REYES
== END 2017-05-15 11:39 | disposition home or self-care (01) | DRG 73 ==
LOC: ED 00:52 → 4E 03:06 → EDHOLD 03:06 → 4E 03:18
PROVIDERS: Internal Medicine; Student in an Organized Health Care Education/Training Program; ADMIT Internal Medicine
DX: B02.23 Postherpetic polyneuropathy (principal); E43 Unspecified severe protein-calorie malnutrition; N17.0 Acute kidney failure with tubular necrosis; E11.22 Type 2 diabetes mellitus with diabetic chronic kidney disease; E86.0 Dehydration; E11.65 Type 2 diabetes mellitus with hyperglycemia; I13.0 Hypertensive heart and chronic kidney disease with heart failure and stage 1 through stage 4 chronic kidney disease, or unspecified chronic kidney disease; I50.32 Chronic diastolic (congestive) heart failure; B36.9 Superficial mycosis, unspecified; I25.10 Atherosclerotic heart disease of native coronary artery without angina pectoris; I16.1 Hypertensive emergency; N18.4 Chronic kidney disease, stage 4 (severe); R74.0 Nonspecific elevation of levels of transaminase and lactic acid dehydrogenase [LDH]; J45.909 Unspecified asthma, uncomplicated; H35.30 Unspecified macular degeneration; E66.01 Morbid (severe) obesity due to excess calories; I87.2 Venous insufficiency (chronic) (peripheral); K80.20 Calculus of gallbladder without cholecystitis without obstruction; M19.90 Unspecified osteoarthritis, unspecified site; E78.5 Hyperlipidemia, unspecified; Z96.659 Presence of unspecified artificial knee joint; I89.0 Lymphedema, not elsewhere classified; Z95.1 Presence of aortocoronary bypass graft; Z90.49 Acquired absence of other specified parts of digestive tract; Z88.0 Allergy status to penicillin; Z79.899 Other long term (current) drug therapy; Z90.710 Acquired absence of both cervix and uterus; Z98.42 Cataract extraction status, left eye; Z95.5 Presence of coronary angioplasty implant and graft; Z82.49 Family history of ischemic heart disease and other diseases of the circulatory system; Z80.51 Family history of malignant neoplasm of kidney; Z79.4 Long term (current) use of insulin; Z82.3 Family history of stroke; Z83.3 Family history of diabetes mellitus; Z91.041 Radiographic dye allergy status; Z85.89 Personal history of malignant neoplasm of other organs and systems; Z68.35 Body mass index [BMI] 35.0-35.9, adult

== ENCOUNTER → 2017-05-31 | Outpatient (CLI) | payer MEDICARE, MEDICAID ==
[~2017-05-31] MED LIST changes: +ACYCLOVIR800 MG PO; +Clopidogrel75 MG PO; +DORZOLAMIDE HCL10 ML OS; +DULE1ARO INH; +DUONEB 3 MG/3 ML3 M1 INH; +KENALOG 0.1%80 GM T; +KLOR-CON M2020 ME1 PO; +LANTUS SOL100 UNIT/1 SQ; +LYRICA75 M1 PO; +METOPROLOL TART50 M1 PO; +MILK OF MA400 MG/5 M PO; +NOVOLOG10 ML SQ; +NYSTOP60 GM T; +OXYBUTYNIN5 MG PO; +PRINIVIL10 MG PO; +TIMOLOL MALEATE10 ML OS
== END | disposition home or self-care (01) ==
LOC: CT 08:00
DX: K80.20 Calculus of gallbladder without cholecystitis without obstruction (principal); R11.0 Nausea; Z90.710 Acquired absence of both cervix and uterus

== ENCOUNTER 2017-06-19 21:16 | Inpatient (IN) | payer MEDICARE, MEDICAID ==
[~2017-06-19] VITALS: Ht 160 cm; Wt 92.6 kg
--- NOTE | ~2017-06-19 | PR ---
[place], [place] PROGRESS NOTE NAME: [id number] UNIT #: [id number] ROOM: 529 DOCTOR: LIZBET WOODS DPM BIRTHDATE: [birth year] DOS: 06/22/2017 SUBJECTIVE: The patient was seen for followup of edema, lymphedema, bilateral lower extremities. OBJECTIVE: After removal of the Unna boots, there is edema, lymphedema, bilateral lower leg, but improved compared to her previous exam at the office last week. There is negative Homans sign. No signs of DVT. ASSESSMENT: Edema, lymphedema, bilateral lower extremities. PLAN: Evaluation and management. Unna boots were applied to both lower extremities. The patient will be seen in 1 week for followup at the office as she is being discharged today. LIZBET WOODS DPM CM:PNCOOKIE [id number] LIZBET WOODS DPM 06/22/17 1734 interface
--- NOTE | ~2017-06-19 | CON ---
[place], [place] REPORT OF CONSULTATION NAME: MARIA ISABEL FELICIANO UNIT #: [id number] ROOM: 529 DOCTOR: LIZBET WOODS DPM BIRTHDATE: [birth year] DOS: 06/20/2017 SUBJECTIVE: The patient was seen for followup of chronic lymphedema; edema, bilateral lower extremities. The patient was admitted with hip pain. The patient had been seen most recently at our office last where Unna boots were applied. PAST MEDICAL HISTORY: The patient has past medical history of coronary artery disease, asthma, ____, chronic kidney disease, diastolic heart failure, DJD, type 2 diabetes, essential hypertension, hyperlipidemia, macular degeneration, morbid obesity, severe protein calorie malnutrition, shingles, throat CA, transaminitis. PAST SURGICAL HISTORY: Back surgery, bladder suspension, appendectomy, CABG 3 years ago, cardiac catheterization, hysterectomy, total knee replacement in 2008. SOCIAL HISTORY: Denies alcohol, illicit drug use or smoking. FAMILY HISTORY: Mother from kidney cancer at age 32. Father at 69 from [place]. ALLERGIES: PENICILLIN AND IODINE. LOWER EXTREMITY EXAMINATION: The Unna boots which were applied last are pristine and intact with decreased edema. Negative Homans sign, bilateral legs. Capillary fill time normal to all digits, bilateral foot. ASSESSMENT: Chronic lymphedema; edema, bilateral lower extremities. PLAN: Evaluation and management. If the patient is still in house on , we will change the Unna boots. They are in perfect condition and can be left intact until . LIZBET WOODS DPM CM:CONSTR:REPORT OF CONSULTATION 1221 06/20/17 1247 interface
[2017-06-19 21:24] VITALS: BP 150/76
--- NOTE | 2017-06-19 22:15 | NUR ---
PT PROVIDED BLANKETS AN A PILLOW WITH SAFETY PRECAUTIONS INTACT AND CALL LIGHT WITHIN REACH.
[2017-06-19 23:38] LABS: BASO % 0.1 % (0.0-1.0); EOS # 0.1 10*3/uL (0.0-0.4); EOS % 0.6 % (1.0-4.0); HEMATOCRIT 40.7 % (37.0-47.0); HEMOGLOBIN 12.7 g/dl (12.0-16.0); LYMPH # 1.3 10*3/uL (1.3-4.4); MEAN CELL VOLUME 88.1 fl (81.0-99.0); MEAN CORPUSCULAR HGB 27.5 pg (27.0-31.0); MEAN CORPUSCULAR HGB CONC 31.2 g/dl (33.0-37.0); MEAN PLATELET VOLUME 11.1 fl (9.6-12.3); MONO # 0.6 10*3/uL (0.1-1.0); NEUT # 6.8 10*3/uL (2.3-7.9); NEUT % 77.1 % (47.0-73.0); PLATELET COUNT AUTOMATED 189 10*3/uL (130-400); RED BLOOD COUNT 4.62 10*6/uL (4.10-5.10); RED CELL DISTRI WIDTH 15.3 % (0-14.5); WHITE BLOOD COUNT 8.8 10*3/uL (4.8-10.8)
[2017-06-19 23:47] LABS: ALBUMIN 3.3 gm/dl (3.1-4.5); CREATININE 1.68 mg/dL (0.55-1.02); POTASSIUM 4.6 mmol/L (3.5-5.1); TOTAL PROTEIN 7.1 gm/dL (6.4-8.2)
[2017-06-20] VITALS (7 sets, daily range): BP systolic 141–176; BP diastolic 59–74
[2017-06-20 00:13] LABS: BILIRUBIN NEGATIVE (NEGATIVE); BLOOD 2+ (NEGATIVE); CLARITY SL CLOUDY (CLEAR); COLOR YELLOW (YELLOW); GLUCOSE NEGATIVE (NEGATIVE); KETONE 1+ (NEGATIVE); LEUKO ESTERASE NEGATIVE (NEGATIVE); NITRITE NEGATIVE (NEGATIVE); PH 7.5 (5.0-9.0)
[2017-06-20 00:22] LABS: EPITHELIAL CELLS 25-30; RBC 16-20 rbc/hpf (0-2)
[2017-06-20 00:23] LABS: BACTERIA TRACE
--- NOTE | 2017-06-20 02:00 | NUR ---
Time: 199 A 82 year old FEMALE admitted to 5E under services of GRACIE PETERSEN DO. Pt. arrived via bed from ER. Chief complaint: FALL. PRADEEP REINOSO
--- NOTE | 2017-06-20 02:54 | NUR ---
PATIENTS MED REC UPDATED VIA LIST FROM PATIENT.
--- NOTE | 2017-06-20 02:59 | NUR ---
PATIENT IS FULL CODE. STATES SHE HAS NEVER SIGNED PAPERS TO BE DNR. WILL NOTIFY MD IN AM.
--- NOTE | 2017-06-20 06:16 | NUR ---
PATIENT MEDICATED WITH PRN NORCO ORDERED FOR RIGHT SIDE, HIP AND LEG PAIN RATED AN 8
[2017-06-20 06:29] LABS: BASO % 0.4 % (0.0-1.0); EOS # 0.3 10*3/uL (0.0-0.4); EOS % 3.8 % (1.0-4.0); HEMATOCRIT 40.5 % (37.0-47.0); HEMOGLOBIN 12.6 g/dl (12.0-16.0); LYMPH # 1.7 10*3/uL (1.3-4.4); LYMPH % 21.9 % (27.0-41.0); MEAN CELL VOLUME 89.2 fl (81.0-99.0); MEAN CORPUSCULAR HGB 27.8 pg (27.0-31.0); MEAN CORPUSCULAR HGB CONC 31.1 g/dl (33.0-37.0); MEAN PLATELET VOLUME 11.5 fl (9.6-12.3); MONO % 12.2 % (3.0-9.0); NEUT # 4.8 10*3/uL (2.3-7.9); NEUT % 61.4 % (47.0-73.0); PLATELET COUNT AUTOMATED 202 10*3/uL (130-400); RED BLOOD COUNT 4.54 10*6/uL (4.10-5.10); RED CELL DISTRI WIDTH 15.4 % (0-14.5); WHITE BLOOD COUNT 7.9 10*3/uL (4.8-10.8)
--- NOTE | 2017-06-20 06:35 | NUR ---
DR WEST NOTIFIED OF PATIENTS CODE STATUS. ALSO NOTIFIED HIM OF PATIENTS EXCORIATED BREAST FOLDS. STATED HE WILL PUT ORDERS IN.
[2017-06-20 06:59] LABS: CREATININE 1.73 mg/dL (0.55-1.02); POTASSIUM 3.8 mmol/L (3.5-5.1)
[2017-06-20 07:17] LABS: ACT PARTIAL THROMBO TIME 22.7 SECONDS (20.8-31.5); INTERNATIONAL NORM RATIO 1.1 (2.0-3.5)
--- NOTE | 2017-06-20 09:00 | NUR ---
Offset Plate Maker in to talk to patient. Patient states lives at home with friend. There are few steps in the home. Physician: leila wooten Pharmacy: [facility] Home health services: none Patient's level of ADLs: INDEPENDENT Patient has working utilities: all working DME: none Follow-up physician's appointment after d/c: will be made by hospitalist nurse director upon discharge Does patient want to access PORTAL?: no Discharge plan discussed with patient, patient lives at home with a friend, states she gets around fine, patient states she will be going back home and denies any home needs. SHARAN MENDIOLA
--- NOTE | 2017-06-20 09:00 | NUR ---
Network Field Engineer in to talk to patient. Patient states lives at home with daughter and son in law. There are no steps in the home. Physician: cyndi batista Pharmacy: Home health services: [facility] Patient's level of ADLs: MINIMAL ASSIST Patient has working utilities: all working DME: cane and walker Follow-up physician's appointment after d/c: will be made by hospitalist nurse director upon discharge Does patient want to access PORTAL?: no Discharge plan discussed with patient, patient lives at home with daughter and son in law, she states she uses a walker or cane for ambulation, discussed with her a short term longterm stay for rehab prior to going back home and patient refused, stated that she was going back home and wanted current home health to continue, planner intern will notify [facility] when patient is medially stable for discharge. SHARAN MENDIOLA
--- NOTE | 2017-06-20 09:04 | NUR ---
PHYSICAL THERAPY PAtient eating breakfast at this time. Thank you for this referral. Mirtha Palacio,PT
--- NOTE | 2017-06-20 09:10 | NUR ---
Patient not available as she is eating breakfast. OTR will recheck at a later time. Dorie López OTR/l
--- NOTE | 2017-06-20 10:40 | NUR ---
Patient is currently active with [facility], will need resume home health order prior to discharge.
--- NOTE | 2017-06-20 11:50 | NUR ---
NOTIFIED DR BUTLER OF NEW CONSULT OF EXISTING PATIENT.DR BUTLER IS ROUNDING IN HOSPITAL PER HIS AGENCY TRAINER.
--- NOTE | 2017-06-20 11:54 | NUR ---
DR BUTLER ROUNDED AND PT UNNA BOOTS GOOD AND HE WILL CHANGE UNNA BOOTS MONDAY PER HER REGULAR SCHEDULED CHANGE.
--- NOTE | 2017-06-20 14:47 | NUR ---
PHYSICAL THERAPY PAtient evaluated on 5, full evaluation to follow. Continue with PT as per plan of care with fall, recent fall at home with right hip pain ( xray negative to date) and acute debility precautions. PAtient refuses return to SNF- will require 24/ family assist and complete home health services. PAtient is moderate complexity via chart review, tests and evaluation: 19058. Thank you for this referral. Mirtha Palacio,PT
--- NOTE | 2017-06-20 21:17 | NUR ---
PATIENT RESTING QUIETLY IN BED. A&OX3, PLEASANT AND COOPERATIVE WITH CARE. DENIES ANY PAIN AT THIS TIME, RESPIRS EASY/REG, NO SXS OF DISTRESS. CALL LIGHT IN REACH.
--- NOTE | 2017-06-20 22:16 | NUR ---
MEDICATED WITH PRN RESTORIL ORDERED FOR C/O INSOMNIA
[2017-06-21] VITALS: BP 164/72
--- NOTE | 2017-06-21 04:20 | NUR ---
SLEEPING, RESPIRATIONS EASY/REG, NO SXS OF DISTRESS. CALL LIGHT IN REACH
--- NOTE | 2017-06-21 06:25 | NUR ---
BLOOD SUGAR 121, NO COVERAGE NEEDED. PATIENT RESTING COMFORTABLY IN BED. NO DISTRESS NOTED. CALL LIGHT IN REACH.
[2017-06-21 06:27] LABS: BASO % 0.5 % (0.0-1.0); EOS # 0.5 10*3/uL (0.0-0.4); HEMATOCRIT 37.8 % (37.0-47.0); HEMOGLOBIN 11.7 g/dl (12.0-16.0); LYMPH % 30.6 % (27.0-41.0); MEAN CORPUSCULAR HGB 27.9 pg (27.0-31.0); MEAN PLATELET VOLUME 11.7 fl (9.6-12.3); MONO # 0.9 10*3/uL (0.1-1.0); MONO % 14.2 % (3.0-9.0); NEUT # 3.1 10*3/uL (2.3-7.9); NEUT % 47.5 % (47.0-73.0); PLATELET COUNT AUTOMATED 174 10*3/uL (130-400); RED CELL DISTRI WIDTH 15.5 % (0-14.5); WHITE BLOOD COUNT 6.5 10*3/uL (4.8-10.8)
[2017-06-21 06:34] LABS: ALBUMIN 2.9 gm/dl (3.1-4.5); CREATININE 1.85 mg/dL (0.55-1.02); PHOSPHOROUS 3.1 mg/dL (2.5-4.9); POTASSIUM 4.1 mmol/L (3.5-5.1); TOTAL PROTEIN 6.2 gm/dL (6.4-8.2)
[2017-06-21 08:00] VITALS: BP 170/76
--- NOTE | 2017-06-21 08:00 | NUR ---
PT IN BED SLEEPING, AROUSES EASILY. NO DISTRESS NOTED. LUNGS CLEAR AND DIMINISHED. EDEMA NOTED ON BILAT FEET. UNABLE TO FEEL PEDAL PULSES DUE TO UNABOOT. IV FLUSHED WITH NO PAIN OR C/O. PT DENIES PAIN, N/V/D. WILL CONTINUE TO MONITOR.
--- NOTE | 2017-06-21 08:48 | NUR ---
Patient not available for OT evaluation this am as she was slowly eating breakfast. OTR will check at a later time. Dorie López OTR/lyndsey
--- NOTE | 2017-06-21 09:00 | NUR ---
case management visits with patient, again discussed a discharge plan including a short term fpc for rehab prior to going back home, patient stated that she lives with her son and durajeever in law, son is disabled and she cares for him during the day, educated patient that if she wasn't able to care for herself, she wouldn't be able to care for her son, patient agreed and stated that she would consider SNf, but wanted to talk with her daughter first.
--- NOTE | 2017-06-21 09:30 | NUR ---
PHYSICAL THERAPY Pt was seen this AM 1:1 for her therapy session. Transfer supine/sit slow with MIN A X 1, sitting balance CGA X 1. Sit/stand and standing balance with wheeled wlaker MOD A X 1. Followed by gait total 85' X 1, MOD ASSEMBLER FISHING FLOATS X 1, with verbal cueing for gait safety, and walker, turns having no LOB this gait. Pt up in her bedside chair short rest followed by act Ex to bilateral LE with cueing for each Ex X 20 reps each X 2, with rest as needed. Pt with call light and phone. EAGLE MARC PRODUCE LABORER.
--- NOTE | 2017-06-21 10:18 | NUR ---
Occupational Therapy evaluation completed this date with full eval to follow. Precautions include fall risk, unaboots BLEs, low complexity level 11719. Recommend SNF upon d/c and OT per POC. Thank you for this referral. Dorie López OTR/l
--- NOTE | 2017-06-21 11:05 | NUR ---
case management visits with patient again, patient stated that she hadn't decided what to do yet and that her daughter was callind a facility in [place], to see if patient was able to go there, informed patient that we could do that if the daughter gave us the name of the facility, patient stated that daughter would be coming in sometime this am. asked patient's nurse to call case management when the daughter came in. also informed patient that if this facility didn't have any available beds, she would have to choose another facility, patient didn't want to do that until her daughter came in
[2017-06-21 11:41] VITALS: BP 162/78; BP 189/81
--- NOTE | 2017-06-21 12:08 | NUR ---
NOTIFIED OF CULTURE RESULTS.
--- NOTE | 2017-06-21 12:53 | NUR ---
case management talked with patient and daughter, patient and daughter would like referrals made to [facility] and [facility] in [place], will make referrals to both
--- NOTE | 2017-06-21 15:28 | NUR ---
Occupational Therapy evaluation completed this date on 5 with full eval to follow. PRecautions include fall risk, moderate complexity level 05709, neuropathy, BLE unaboots, IV UE. Recommend OT per pOC and SNF upon d/c to enable return home at [facility]. Thank you for this referral. Dorie López OTR/l
[2017-06-21 16:00] VITALS: BP 135/73
[2017-06-21 20:00] VITALS: BP 136/62
--- NOTE | 2017-06-21 22:55 | NUR ---
PT UP IN CHAIR, HS MEDS GIVEN, VITALS WNL, PT ALERT AND ORIENTED X 3, PLEASANT WITH NO COMPLAINTS AT THIS TIME. ALL SAFETY MEASURES IN PLACE. CALL LIGHT IN REACH.
[2017-06-22] VITALS: BP 134/56
--- NOTE | 2017-06-22 04:06 | NUR ---
24 HR chart check completed.
[2017-06-22 06:15] VITALS: BP 141/52
--- NOTE | 2017-06-22 06:20 | NUR ---
EKG DONE. DR. WEST ON THE UNIT AND LOOKED AT EKG. STATED "NOTHING NEW ON THIS EKG". PT. WAS PLACED ON 02 2L NC FOR COMFORT. EXAMINING PT. ORDERS RECEIVED.
--- NOTE | 2017-06-22 06:20 | NUR ---
PT C/O MIDSTERNAL, SHARP CHEST PAIN, DIZZINESS, AND WEAKNESS. VITALS OBTAINED, ALL WNL. STAT EKG ORDERED PER NURSING MEASURE. DR. WEST NOTIFIED AND STATES HE WILL BE UP TO THE FLOOR TO SEE HER.
[2017-06-22 06:24] LABS: BASO % 0.5 % (0.0-1.0); EOS # 0.7 10*3/uL (0.0-0.4); EOS % 9.3 % (1.0-4.0); HEMOGLOBIN 11.4 g/dl (12.0-16.0); LYMPH # 2.6 10*3/uL (1.3-4.4); LYMPH % 33.5 % (27.0-41.0); MEAN CELL VOLUME 90.9 fl (81.0-99.0); MEAN CORPUSCULAR HGB 27.3 pg (27.0-31.0); MEAN PLATELET VOLUME 11.7 fl (9.6-12.3); MONO % 12.5 % (3.0-9.0); NEUT # 3.3 10*3/uL (2.3-7.9); NEUT % 43.9 % (47.0-73.0); PLATELET COUNT AUTOMATED 176 10*3/uL (130-400); RED BLOOD COUNT 4.18 10*6/uL (4.10-5.10); RED CELL DISTRI WIDTH 15.7 % (0-14.5); WHITE BLOOD COUNT 7.6 10*3/uL (4.8-10.8)
--- NOTE | 2017-06-22 06:30 | NUR ---
PT GIVEN MORPHINE VIA IV FOR MID STERNAL CHEST PAIN, RATING IT A 10/10. WILL MONITOR FOR EFFECTIVENESS. CALL LIGHT IN REACH. 02 VIA NC RUNNING AT 2L AT THIS TIME COMFORT MEASURE.
--- NOTE | 2017-06-22 06:52 | NUR ---
PT STATES THAT MORPHINE EFFECTIVE. PAIN IS NOW A 5/10, PT RESTING IN BED WITH NO S/S OF DISTRESS. CXR OBTAINED AT THIS TIME.
[2017-06-22 07:08] LABS: ALBUMIN 2.7 gm/dl (3.1-4.5); CREATININE 2.11 mg/dL (0.55-1.02); POTASSIUM 4.7 mmol/L (3.5-5.1); TOTAL PROTEIN 6.3 gm/dL (6.4-8.2)
--- NOTE | 2017-06-22 07:15 | NUR ---
CALLED DAUGHTER, BRANNON, AND NOTIFIED HER OF PT. CONDITION AND TREATMENTS DONE AND PENDING AND BRANNON SAID SHE WOULD BE DONE. PT. ALERT AND WEEPY SAYS SHE FEELS WEAK/TIRED. PT. HAD RECIEVED MORPHINE.
--- NOTE | 2017-06-22 08:03 | NUR ---
MORPHINE 2MG IV GIVEN FOR CHEST PAIN RATING A 10/10. BED IS IN LOW POSITION. CALL LIGHT IS WITHIN REACH.
[2017-06-22 08:07] VITALS: BP 121/50
--- NOTE | 2017-06-22 08:15 | NUR ---
NOTIFIED DR ADAMSON THAT PATIENT IS STILL HAVING CHEST PAIN.
--- NOTE | 2017-06-22 09:12 | NUR ---
In to see patient, daughter at bedside. Discussed snf placement and provided list of facilities. Patient asked for referral to 1. [facility] in [place] or 2. [facility]. Faxed referral to both locations, waiting on acceptance.
[2017-06-22 11:56] VITALS: BP 137/61
--- NOTE | 2017-06-22 12:40 | NUR ---
PHYSICAL THERAPY Patient was resting comfortably in bed with several visitors present upon therapist arrival. Patient requested to defer therapy visit to pm so she could spend time with her visitors. Will continue this pm per POC as tolerated. Carlitos Canchola, TRAY LINE WORKER
--- NOTE | 2017-06-22 13:33 | NUR ---
[facility] does not have any available beds at this time. [facility] has accepted this patient and Jessica at [facility] stated this patient had just been discharged from their facility on June 14, 2017, therefore does not require a 3 night stay. Patient can go today if ready for discharge.
--- NOTE | 2017-06-22 13:45 | NUR ---
Hospitalists office stated patient can be discharged today at 4PM. Up to see patient, daughter had to leave for a little while. Explained to patient there was no available beds in [place] at [facility] but [facility] has excepted her and she will be discharged today. Patients daughter will be back to transport her around 4 PM.
[2017-06-22] MEDS ORDERED: Insulin Lispro, Reco SC (14:05)
--- NOTE | 2017-06-22 15:29 | NUR ---
CALLED NURSE TO NURSE REPORT TO [facility].
--- NOTE | 2017-06-22 15:40 | NUR ---
PHYSICAL THERAPY Patient seen this pm 1;1 for therapy supine in bed following lunch, with her daughter present, reporting 3/10 R hip pain. Patient transfers sup to sit EOB, Min A x 1 and performed seated B LE therex, all planes, 2 x 10 each to increase LE strength and demonstrated increased L LE weakness during LAQ. Patient also completed multiple sit to stand transfers with use of wh walker support, Min/CGA, tolerating < 1 minute static stand each trial. Patient returned to supine in bed, Mod A to scoot upwards towards HOB and remained with call light, telephone and tray table. Will continue per POC with all goals to improve functional transfers and mobility to reduce risk of falls. Carlitos Canchola, TETRYL BLENDER OPERATOR
--- NOTE | 2017-06-22 16:25 | NUR ---
Discharge instructions reviewed with patient/family. Patient receptive and verbalizes understanding. Follow-up care arranged. Written instructions given to patient/family. [place] REMOVED INTACT. PATIENT DISCHARGED BY WHEELCHAIR IN CARE OF SON. EVA CAMPA
--- NOTE | 2017-06-23 07:56 | NUR ---
PHYSICAL THERAPY CO-SIGN I approve of the Phyical Therapy notes written above. BRANNON ADAM PT
== END 2017-06-22 16:25 | disposition other institution (70) | DRG 555 ==
LOC: ED 21:16 → EDHOLD 06-20 00:43 → 5E 06-20 00:43
PROVIDERS: Internal Medicine; Nurse Practitioner Family; ADMIT Internal Medicine
DX: M25.551 Pain in right hip (principal); E43 Unspecified severe protein-calorie malnutrition; E11.22 Type 2 diabetes mellitus with diabetic chronic kidney disease; E11.65 Type 2 diabetes mellitus with hyperglycemia; I50.32 Chronic diastolic (congestive) heart failure; I13.0 Hypertensive heart and chronic kidney disease with heart failure and stage 1 through stage 4 chronic kidney disease, or unspecified chronic kidney disease; N18.3 Chronic kidney disease, stage 3 (moderate); R53.1 Weakness; R60.0 Localized edema; I89.0 Lymphedema, not elsewhere classified; Z96.659 Presence of unspecified artificial knee joint; E66.01 Morbid (severe) obesity due to excess calories; J45.909 Unspecified asthma, uncomplicated; I25.10 Atherosclerotic heart disease of native coronary artery without angina pectoris; M19.90 Unspecified osteoarthritis, unspecified site; E78.5 Hyperlipidemia, unspecified; R00.0 Tachycardia, unspecified; W06.XXXA Fall from bed, initial encounter; K80.20 Calculus of gallbladder without cholecystitis without obstruction; Z79.4 Long term (current) use of insulin; Z95.1 Presence of aortocoronary bypass graft; Z88.0 Allergy status to penicillin; Z91.041 Radiographic dye allergy status; Z79.899 Other long term (current) drug therapy; Z90.49 Acquired absence of other specified parts of digestive tract; Z90.710 Acquired absence of both cervix and uterus; Z98.61 Coronary angioplasty status; Z82.49 Family history of ischemic heart disease and other diseases of the circulatory system; Z82.3 Family history of stroke; Z80.51 Family history of malignant neoplasm of kidney; Z83.3 Family history of diabetes mellitus; Z68.36 Body mass index [BMI] 36.0-36.9, adult; Z85.818 Personal history of malignant neoplasm of other sites of lip, oral cavity, and pharynx; Y93.89 Activity, other specified; Y92.89 Other specified places as the place of occurrence of the external cause; Y99.8 Other external cause status

== ENCOUNTER 2017-08-12 17:28 | Inpatient (IN) | payer MEDICARE, MEDICAID ==
[~2017-08-12] VITALS: Ht 160 cm; Wt 89.6 kg
[~2017-08-12 17:28] MED LIST changes: +Insulin Lispro, Reco SC
[2017-08-12 17:52] VITALS: BP 151/61
[2017-08-12 18:12] LABS: BASO % 0.3 % (0.0-1.0); EOS # 0.4 10*3/uL (0.0-0.4); EOS % 4.8 % (1.0-4.0); HEMATOCRIT 37.2 % (37.0-47.0); HEMOGLOBIN 11.5 g/dl (12.0-16.0); LYMPH # 1.4 10*3/uL (1.3-4.4); LYMPH % 16.4 % (27.0-41.0); MEAN CELL VOLUME 87.7 fl (81.0-99.0); MEAN CORPUSCULAR HGB 27.1 pg (27.0-31.0); MEAN CORPUSCULAR HGB CONC 30.9 g/dl (33.0-37.0); MEAN PLATELET VOLUME 10.4 fl (9.6-12.3); MONO # 0.9 10*3/uL (0.1-1.0); MONO % 10.5 % (3.0-9.0); NEUT # 5.9 10*3/uL (2.3-7.9); NEUT % 67.7 % (47.0-73.0); PLATELET COUNT AUTOMATED 224 10*3/uL (130-400); RED BLOOD COUNT 4.24 10*6/uL (4.10-5.10); RED CELL DISTRI WIDTH 14.9 % (0-14.5); WHITE BLOOD COUNT 8.7 10*3/uL (4.8-10.8)
[2017-08-12 18:21] LABS: ACT PARTIAL THROMBO TIME 23.6 SECONDS (20.8-31.5)
--- NOTE | 2017-08-12 18:22 | NUR ---
PATIENT PLACED ON TONGSMAN BUT REFUSES TO PUT ON GOWN. PATIENT STATES " I WILL PUT IT ON IF I HAVE TO STAY." OTHERWISE COOPERATIVE AND CALM. VITALS STABLE. 96% ON RA
[2017-08-12 18:29] LABS: ALBUMIN 2.6 gm/dl (3.1-4.5); CREATININE 1.85 mg/dL (0.55-1.02); POTASSIUM 4.6 mmol/L (3.5-5.1); TOTAL PROTEIN 6.7 gm/dL (6.4-8.2)
[2017-08-12 18:30] LABS: TROPONIN I 0.028 ng/ml (<0.045)
[2017-08-12 18:58] VITALS: BP 157/63
--- NOTE | 2017-08-12 18:58 | NUR ---
PT SITTING IN BED NO COMPLAINTWS VOICED FAMILY AT BEDSIDE CALL LIGHT IN REACH
[2017-08-12 19:20] VITALS: BP 148/65
--- NOTE | 2017-08-12 20:05 | NUR ---
PT SITTING UP IN BED VOICES NO COMPLAINTS CALL LIGHT IN REACH
[2017-08-12 20:06] VITALS: BP 145/74
--- NOTE | 2017-08-12 21:20 | NUR ---
ATTEMPTED TO CALL REPORT NURSE DID NOT COME TO PHONE
--- NOTE | 2017-08-12 21:21 | NUR ---
PER PT REQUEST LASIX GIVEN RIGHT BEFORE GOING TO HER ROOM
[2017-08-12 21:28] VITALS: BP 138/51
--- NOTE | 2017-08-12 21:30 | NUR ---
NUTRITION INTERNSHIP CALLED FROM [facility] SAID NURSE WAS STARTING IV AND SHE WILL RETURN CALL WHEN SHE IS DONE
--- NOTE | 2017-08-12 21:50 | NUR ---
A 82, admitted to 5E, under the services of GUTIERREZ Laws DO with a diagnosis of ACUTE CHF. Chief complaint is SHORTNESS OF BREATH. Patient arrived via stretcher from ER. Monitor applied. Initial assessment completed. Vital signs taken and recorded. GUTIERREZ ALWS DO notified of admission to the unit. Orders received. See assessment for past medical history, medications and allergies. Patient and/or family oriented to unit. [facility] visitation policy reviewed. Clothing/patient valuable form completed. Patients medication reconciliation was completed with the patient, but unable to verify medications with pharmacy because they were closed. ARIA PARRISH
[2017-08-12 22:00] VITALS: BP 124/81
--- NOTE | 2017-08-12 23:20 | NUR ---
TYLENOL WAS GIVEN PER PATIENT REQUEST FOR C/O HEADACHE WITH PAIN RATED 8/10. WILL MONITOR.
[2017-08-13] VITALS: BP 155/70; BP 158/72
--- NOTE | 2017-08-13 00:10 | NUR ---
TYLENOL WAS EFFECTIVE. PATIENT IS COMFORTABLE AND SATISFIED.
--- NOTE | 2017-08-13 03:40 | NUR ---
NOTIFIED DR. CRAFT ABOUT PATIENT BEING PLACED ON IV LASIX AND GETTING UP EVERY 30-45 MINUETS TO TOILET. I REQUESTED A MAHONEY CATH BE PLACED BECAUSE THE PATIENT BECOMES SOB WITH MINIMAL EXERTION AND ITS VERY TAXING ON HER IN HER CURRENT CONDITION.PATIENT WAS NOT OPPOSSED, AND RELIEVED BECAUSE SHE HASN'T SLEPT AT ALL TONIGHT. SEE NEW ORDERS.
[2017-08-13 04:00] LABS: BASO % 0.3 % (0.0-1.0); EOS # 0.5 10*3/uL (0.0-0.4); EOS % 5.1 % (1.0-4.0); HEMOGLOBIN 10.9 g/dl (12.0-16.0); LYMPH # 1.8 10*3/uL (1.3-4.4); LYMPH % 18.2 % (27.0-41.0); MEAN CELL VOLUME 87.7 fl (81.0-99.0); MEAN CORPUSCULAR HGB 27.3 pg (27.0-31.0); MEAN CORPUSCULAR HGB CONC 31.1 g/dl (33.0-37.0); MONO # 1.1 10*3/uL (0.1-1.0); MONO % 11.6 % (3.0-9.0); NEUT # 6.2 10*3/uL (2.3-7.9); NEUT % 64.5 % (47.0-73.0); PLATELET COUNT AUTOMATED 211 10*3/uL (130-400); RED BLOOD COUNT 3.99 10*6/uL (4.10-5.10); RED CELL DISTRI WIDTH 14.9 % (0-14.5); WHITE BLOOD COUNT 9.7 10*3/uL (4.8-10.8)
[2017-08-13 04:09] LABS: ALBUMIN 2.5 gm/dl (3.1-4.5); PHOSPHOROUS 3.1 mg/dL (2.5-4.9); TOTAL PROTEIN 6.3 gm/dL (6.4-8.2)
[2017-08-13 04:10] LABS: FREE T4 0.9 ng/dl (0.76-1.46)
[2017-08-13 04:15] LABS: THYROID STIM HORMONE (HS) 5.53 uIU/ml (0.358-4.75)
[2017-08-13 04:25] LABS: ACT PARTIAL THROMBO TIME 24.7 SECONDS (20.8-31.5)
[2017-08-13 07:04] LABS: VITAMIN D, 25-HYDROXY 54.6 ng/mL (30-100)
[2017-08-13 08:00] VITALS: BP 144/50
[2017-08-13 12:00] VITALS: BP 144/50
[2017-08-13] MEDS ORDERED: VITAMIN D50000 UNIT PO (12:43)
[2017-08-13] MEDS ORDERED: CRESTOR10 M1 PO (12:43)
[2017-08-13] MEDS ORDERED: COSOPT PF EYE1 EACH OP (12:47)
[2017-08-13] MEDS ORDERED: VENTOLIN 02.5 MG/3 M INH (12:50)
[2017-08-13] MEDS ORDERED: NOVOLOG FL100 UNIT/1 SQ (12:51)
--- NOTE | 2017-08-13 12:51 | NUR ---
MED REC UP DATED PER [facility]
[2017-08-13 16:00] VITALS: BP 155/70
--- NOTE | 2017-08-13 17:48 | NUR ---
PHYSICAL THERAPY Patient evaluated today on level 5. full eval to follow; continue with pt per POC with fall risk, min to mod of 1 for transfers and bed mobility as well as gait with fww for 20 ft x 2 with SOB noted. Recommend resumption of home PT upon d/c home. patient is moderate complexity via chart review, tests and evaluation: [id number]. Thank you for this referral Andie Devries
[2017-08-13 20:00] VITALS: BP 156/63
--- NOTE | 2017-08-13 20:02 | NUR ---
PATIENT LAYING IN BED ASSISTED PATIENT WITH REPOSTIONING CALL LIGHT IN REACH SEE SHIFT ASSESSMENT
--- NOTE | 2017-08-13 22:40 | NUR ---
PATIENT RESTING IN CHAIR SAYS SHE FEELS BETTER SITTING IN THE CHAIR CO OF RACHEL TYLENOL GIVEN WILL REASSESS FOR EFFECTIVENESS OF MEDICATION SEE ASSESSMENT
[2017-08-14] VITALS: BP 138/55
--- NOTE | 2017-08-14 02:19 | NUR ---
MORPHINE WAS GIVEN PER PATIENT REQUEST FOR CHRONIC PAIN IN HER RIGHT LEG. PATIENT RATES PAIN 9/10. WILL CONTINUE TO MONITOR.
--- NOTE | 2017-08-14 05:40 | NUR ---
PATIENT RESTING IN CHAIR CALL LIGHT IN REACH NO CO AT THIS TIME SEE SHIFT ASSESSMENT
[2017-08-14 07:25] LABS: BASO % 0.5 % (0.0-1.0); EOS # 0.5 10*3/uL (0.0-0.4); EOS % 6.8 % (1.0-4.0); HEMATOCRIT 39.2 % (37.0-47.0); HEMOGLOBIN 12.1 g/dl (12.0-16.0); LYMPH # 1.5 10*3/uL (1.3-4.4); LYMPH % 20.5 % (27.0-41.0); MEAN CELL VOLUME 87.1 fl (81.0-99.0); MEAN CORPUSCULAR HGB 26.9 pg (27.0-31.0); MEAN CORPUSCULAR HGB CONC 30.9 g/dl (33.0-37.0); MONO % 13.7 % (3.0-9.0); NEUT # 4.3 10*3/uL (2.3-7.9); NEUT % 58.1 % (47.0-73.0); PLATELET COUNT AUTOMATED 230 10*3/uL (130-400); RED CELL DISTRI WIDTH 14.7 % (0-14.5); WHITE BLOOD COUNT 7.3 10*3/uL (4.8-10.8)
[2017-08-14 07:54] LABS: ALBUMIN 2.7 gm/dl (3.1-4.5); CREATININE 2.31 mg/dL (0.55-1.02); PHOSPHOROUS 3.6 mg/dL (2.5-4.9); POTASSIUM 3.8 mmol/L (3.5-5.1)
[2017-08-14 08:00] VITALS: BP 138/48
--- NOTE | 2017-08-14 08:19 | NUR ---
PT RESTING IN BED, NO DISTRESS NOTED. NO VOICED C/O. WILL MONITOR
--- NOTE | 2017-08-14 09:00 | NUR ---
Math Interventionist in to talk to patient. Patient states lives at home with son and daughter in law. There are no steps in the home. Physician: eddie grant Pharmacy: [facility] health services: [facility], nursing and pt Patient's level of ADLs: MINIMAL ASSIST Patient has working utilities: all working DME: cane and walker Follow-up physician's appointment after d/c: will be made by hospitalist nurse director upon discharge Does patient want to access PORTAL?: no Discharge plan discussed with patient, patient lives at home with son and daughter in law, she uses a cane or walker for ambulation, patient states she will be returning home when able and wants [facility] to continue, logistics planner will contact [facility] and notify them when patient is medically stable for discharge. SHARAN MENDIOLA
--- NOTE | 2017-08-14 10:50 | NUR ---
PHYSICAL THERAPY Mrs Jimenez seen this AM and had just gotten back in bed from her bedsid chair, Pt having her breakfast. Stopped back later this AM and Nayla was a little SOB and said not now, later. EAGLE MARC BEEF PLUCK TRIMMER.
[2017-08-14 12:00] VITALS: BP 138/48
[2017-08-14 12:15] VITALS: BP 136/87
--- NOTE | 2017-08-14 13:17 | NUR ---
PHYSICAL THERAPY Mrs Jimenez was seen this PM 1:1 for her therapy gait. Transfer supine/sit MIN A X 1, sitting balance supervision X 1, once up. Sit/stand and up on wheeled walker standing balance MIN A X 1. Then gait total 83' X 1, with CG X 1, no LOB and little cueing for gait, walker safety. Pt up in her bedside chair call light, phone. EAGLE MARC FINANCIAL INSTITUTION PRESIDENT.
[2017-08-14 16:00] VITALS: BP 153/60
--- NOTE | 2017-08-14 16:30 | NUR ---
PT SITTING UP IN CHAIR. NO DISTRESS NOTED. NO VOICED C/O. WILL MONITOR
--- NOTE | 2017-08-14 17:11 | NUR ---
This nurse was asked to see patient for BLE. Patient stated she gets her unna boots changed weekly. She takes them off the day before she has to shower then gets them replaced the following day. She stated there are no open wounds underneath that she is aware of at this time. She said they were last changed on monday the she follows with Dr. Major. I would recommend putting podiatry on if patient is still here come monday so unna boots can be replaced.
[2017-08-14 20:00] VITALS: BP 156/62
--- NOTE | 2017-08-14 22:17 | NUR ---
PATIENT RESTING IN BED CALL LIGHT IN REACH RESP ERNL SEE SHIFT ASSESSMENT
[2017-08-15] VITALS: BP 138/50
--- NOTE | 2017-08-15 01:28 | NUR ---
PATIENT IN CHAIR CALL LIGHT IN REACH NO CO AT THIS TIME SEE SHIFT ASSESSMENT
--- NOTE | 2017-08-15 05:25 | NUR ---
PATIENT RESTING IN BED [facility] SEE ASESSMENT
[2017-08-15 06:35] LABS: BASO % 0.5 % (0.0-1.0); EOS # 0.5 10*3/uL (0.0-0.4); EOS % 6.5 % (1.0-4.0); HEMATOCRIT 39.7 % (37.0-47.0); HEMOGLOBIN 12.4 g/dl (12.0-16.0); LYMPH # 1.7 10*3/uL (1.3-4.4); LYMPH % 20.7 % (27.0-41.0); MEAN CELL VOLUME 88.2 fl (81.0-99.0); MEAN CORPUSCULAR HGB 27.6 pg (27.0-31.0); MEAN CORPUSCULAR HGB CONC 31.2 g/dl (33.0-37.0); MEAN PLATELET VOLUME 10.6 fl (9.6-12.3); MONO # 0.9 10*3/uL (0.1-1.0); MONO % 11.3 % (3.0-9.0); NEUT % 60.8 % (47.0-73.0); PLATELET COUNT AUTOMATED 240 10*3/uL (130-400); RED CELL DISTRI WIDTH 14.6 % (0-14.5); WHITE BLOOD COUNT 8.3 10*3/uL (4.8-10.8)
[2017-08-15 06:48] LABS: POTASSIUM 3.7 mmol/L (3.5-5.1)
[2017-08-15 06:50] LABS: CREATININE 2.24 mg/dL (0.55-1.02); PHOSPHOROUS 3.2 mg/dL (2.5-4.9)
[2017-08-15 07:59] VITALS: BP 126/72
--- NOTE | 2017-08-15 08:00 | NUR ---
PT ALERT AND ORIENTATEDx3. VS STABLE. SKIN IS WARM, DRY AND INTACT. BILATERAL LOWER EXTREMITY 2+ PITTING EDMA. WEST BOOTS ARE ON LOWER EXTREMITIES, DRY AND INTACT. FEET ARE WARM, DRY AND INTACT, PERPHERIAL PULSE BOUNDING AND REGULAR. NO C/O SOB AT THIS TIME. HEART SOUNDS ARE NORMAL. LUNGS HAVE FINE RALES IN BILATERAL LOWER LOBES. BOWEL SOUNDSx4. MAHONEY CATH PATENT FOR CLEAR YELLOW URINE. PT DOES NOT C/O OF ANY DISCOMFORT OR PAIN AT THIS TIME WILL CONTINUE TO ASSESS. [facility]U MALONE [facility]
--- NOTE | 2017-08-15 08:00 | NUR ---
PT RESTING IN BED, NO DISTRESS NOTED.NO VOICED C/O . WILL MONITOR
--- NOTE | 2017-08-15 10:03 | NUR ---
PT UP IN CHAIR, RESTING. NO C/O SOB OR ANY PAIN AT THIS TIME. WILL CONTINUE TO ASSESS. [facility] MALONE [facility]
--- NOTE | 2017-08-15 10:08 | NUR ---
PHYSICAL THERAPY Mrs Jimenez was seen this AM 1:1 for her therapy session and improving. Transfer supine/sit sitting balance CGA X 1, sit/stand and up on wheeled walker CGA X 1. Followed by gait 55' X 2, CG X 1, no LOB and was pleased with her gait, no LOB, Pt up in her bedside chair call light student nurse present now. EAGLE MARC DIGITAL SALES DIRECTOR.
--- NOTE | 2017-08-15 11:41 | NUR ---
PT UP IN CHAIR WAITING ON LUNCH. NO C/O PAIN OR DISCOMORT AT THIS TIME. WILL CONTINUE TO ASSESS. [facility] MALONE [facility]
[2017-08-15 12:00] VITALS: BP 132/80
[2017-08-15 16:00] VITALS: BP 157/57
[2017-08-15 20:00] VITALS: BP 151/50
--- NOTE | 2017-08-15 20:00 | NUR ---
PT RESTING IN BED. NO S AND S OF ACUTE DISTRESS NOTED AT THIS TIME. RESPS EASY AND REGULAR. LAB RESULTS AND ORDERS REVIEWED. CALL LIGHT IN REACH.
[2017-08-16] VITALS: BP 158/59
--- NOTE | 2017-08-16 | NUR ---
ASSUMED CARE FOR THIS PT. AUTOMATIC AND MANUAL BP SLIGHTLY ELEVATED. PT RESTING QUIETLY IN RECLINER CHAIR. NO S/S OF HTN. PT DENIES CP. WILL CONT. TO MONITOR.
[2017-08-16 00:54] VITALS: BP 162/82
[2017-08-16 07:02] LABS: BASO % 0.4 % (0.0-1.0); EOS # 0.6 10*3/uL (0.0-0.4); EOS % 6.5 % (1.0-4.0); HEMATOCRIT 37.9 % (37.0-47.0); LYMPH # 1.8 10*3/uL (1.3-4.4); LYMPH % 19.7 % (27.0-41.0); MEAN CELL VOLUME 87.1 fl (81.0-99.0); MEAN CORPUSCULAR HGB 27.6 pg (27.0-31.0); MEAN CORPUSCULAR HGB CONC 31.7 g/dl (33.0-37.0); MEAN PLATELET VOLUME 10.7 fl (9.6-12.3); MONO # 1.2 10*3/uL (0.1-1.0); MONO % 12.9 % (3.0-9.0); NEUT # 5.4 10*3/uL (2.3-7.9); NEUT % 60.4 % (47.0-73.0); PLATELET COUNT AUTOMATED 236 10*3/uL (130-400); RED BLOOD COUNT 4.35 10*6/uL (4.10-5.10); RED CELL DISTRI WIDTH 14.2 % (0-14.5)
[2017-08-16 07:31] LABS: CREATININE 2.05 mg/dL (0.55-1.02); PHOSPHOROUS 2.6 mg/dL (2.5-4.9); POTASSIUM 3.2 mmol/L (3.5-5.1)
--- NOTE | 2017-08-16 08:00 | NUR ---
PT A&Ox3. VS STABLE. NO C/O PAIN OR DISCOMFORT. HEART SOUND REGULAR. LUNGS DIMINSHED IN LL. SKIN WARM, DRY AND INTACT. NO S/S OF BREAKDOWN. WEST BOOTS INTACT. JACQUELINE. SKIN TUGOR GOOD. PT DOES NOT C/O BEING SOB AT THIS TIME. MAHONEY CATH INTACT DRAINING CLEAR URINE. PT C/O NOT SLEEPING WELL THROUGH THE NIGHT. LIGHTS ARE DIMMED TO PROMOTE RELAXTION AND ENCOURGAED PT TO RELAX TODAY. [facility] MALONE [facility]
[2017-08-16 08:16] VITALS: BP 142/84
--- NOTE | 2017-08-16 09:47 | NUR ---
PHYSICAL THERAPY Patient presented to therapy in supine position with report of feeling tired , but otherwise better. Patient perforemd supine to sitting at EOB transfer with Supervision. Patient performed sit to stand transfer with CGA X 1. Patient performed gait with W/W for 30' x 1 with CGA X 1. Patient performed seated ther ex to the bilateral LEs x 20 reps each in all planes of movement. Patient was left in seated position with call light within reach. NATHALIE WILSON BARREL RIFLER HOOK
--- NOTE | 2017-08-16 11:57 | NUR ---
PT IN RECLINER. NO C/O SOB OR DISCOMFORT. FAMILY IN ROOM WITH PT. WILL CONTINUE TO ASSESS. [facility] MALONE [facility]
[2017-08-16 11:59] VITALS: BP 142/86
--- NOTE | 2017-08-16 12:03 | NUR ---
SW SPOKE WITH PT AND DTR. PT SAID THAT SHE HAS AN ASSESSMENT THIS AFTERNOON FOR THE [facility] PROGRAM. SW WILL CALL AND REQUEST THAT INSPECTOR CLIP ON SUNGLASSES COME TO HOSPITAL INSTEAD OF HER HOME. PT AGREED TO THIS.
--- NOTE | 2017-08-16 12:04 | NUR ---
WENCESLAO HENDERSON AAA11. CARTON FORMING MACHINE TENDER WILL NOTIFY NATIONAL INVESTIGATIVE PRODUCER THERESA THAT PT IS IN [facility] ROOM 521 -1 AND HAVE HER COME [facility] FOR [facility].
--- NOTE | 2017-08-16 12:39 | NUR ---
PT UP IN RECLINER. STATED "SOB GOES AWAY WHEN I SIT STRAIGHT UP." PLACED A PILLOW BEHIND PTS BACK. DAUGHTER IN TO VISIT. WILL CONTINUE TO MONITOR. [facility]U MALONE [facility]
[2017-08-16 16:00] VITALS: BP 144/63
--- NOTE | 2017-08-16 16:58 | NUR ---
PT WAS ASSESSED FOR HOME O2, AND DID NOT QUALIFY. MAINTAINED SPO2 OF 97% OR ABOVE AT ALL TIMES DURING THE ASSESSMENT.
[2017-08-16 20:00] VITALS: BP 169/90
--- NOTE | 2017-08-16 22:00 | NUR ---
PT RESTING IN BED NO ACUTE DISTRESS NOTED AT THIS TIME. RESPS EASY AND UNLABORED. CALL LIGHT IN REACH
[2017-08-17] VITALS: BP 160/70
--- NOTE | 2017-08-17 02:00 | NUR ---
PT RESTING IN BED WITH EYEYS CLOSED. NO S AND S OF ACUTE DISTRESS NOTED AT THIS TIME. CALL LIGHT IN REACH.
[2017-08-17 08:00] VITALS: BP 165/62
--- NOTE | 2017-08-17 09:15 | NUR ---
PATIENTS URINARY CATHETER REMOVED. PATIENT TOLERATED WELL. NO CONCERNS AT THIS TIME.
[2017-08-17] MEDS ORDERED: FUROSEMIDE40 MG PO (11:59)
[2017-08-17] MEDS ORDERED: K-TAB10 MEQ PO (11:59)
--- NOTE | 2017-08-17 12:12 | NUR ---
PATIENT IS BEING DISCHARGED TO HOME. THE PATIENT CAME TO THE HOSPITAL WITH UNNA BOOTS APPLIED BY DR. WOODS AND IS NOT DUE FOR THEM TO BE CHANGED UNTIL 08/18/17. DISCHARGE WOUND PHOTOS UNABLE TO COMPLETE.
--- NOTE | 2017-08-17 12:39 | NUR ---
Discharge instructions reviewed with patient/family. Patient receptive and verbalizes understanding. Follow-up care arranged. Written instructions given to patient/family. NEMESIO MORALEZ
--- NOTE | 2017-08-17 17:14 | NUR ---
PHYSICAL THERAPY CO-SIGN I approve of the Phyical Therapy notes written above. ANNIE ORELLANA
== END 2017-08-17 12:39 | disposition home or self-care (01) | DRG 291 ==
LOC: ED 17:28 → EDHOLD 20:40 → 5E 20:40
PROVIDERS: Hospitalist; Internal Medicine; Internal Medicine Nephrology; Nurse Practitioner Family; ADMIT Internal Medicine
DX: I13.0 Hypertensive heart and chronic kidney disease with heart failure and stage 1 through stage 4 chronic kidney disease, or unspecified chronic kidney disease (principal); E43 Unspecified severe protein-calorie malnutrition; N18.4 Chronic kidney disease, stage 4 (severe); E11.65 Type 2 diabetes mellitus with hyperglycemia; E66.01 Morbid (severe) obesity due to excess calories; E11.22 Type 2 diabetes mellitus with diabetic chronic kidney disease; I25.810 Atherosclerosis of coronary artery bypass graft(s) without angina pectoris; I50.33 Acute on chronic diastolic (congestive) heart failure; E78.2 Mixed hyperlipidemia; Z96.659 Presence of unspecified artificial knee joint; M19.90 Unspecified osteoarthritis, unspecified site; E53.8 Deficiency of other specified B group vitamins; D50.9 Iron deficiency anemia, unspecified; J45.909 Unspecified asthma, uncomplicated; R00.0 Tachycardia, unspecified; Z79.4 Long term (current) use of insulin; Z68.37 Body mass index [BMI] 37.0-37.9, adult; Z88.0 Allergy status to penicillin; Z91.041 Radiographic dye allergy status; Z90.49 Acquired absence of other specified parts of digestive tract; Z95.1 Presence of aortocoronary bypass graft; Z90.710 Acquired absence of both cervix and uterus; Z98.42 Cataract extraction status, left eye; Z95.5 Presence of coronary angioplasty implant and graft; Z80.51 Family history of malignant neoplasm of kidney; Z82.49 Family history of ischemic heart disease and other diseases of the circulatory system; Z79.899 Other long term (current) drug therapy; Z85.819 Personal history of malignant neoplasm of unspecified site of lip, oral cavity, and pharynx

== ENCOUNTER 2017-09-14 04:02 | Inpatient (IN) | payer MEDICARE, MEDICAID ==
[~2017-09-14] VITALS: Ht 160 cm; Wt 89.4 kg
[2017-09-14] VITALS (9 sets, daily range): BP systolic 129–186; BP diastolic 58–90
--- NOTE | ~2017-09-14 | CON ---
[place], [place] REPORT OF CONSULTATION NAME: [facility]ABEL [facility]O [facility] [id number] UNIT #: [id number] ROOM: 503 DOCTOR: LIZBET WOODS DPM BIRTHDATE: [birth year] DOS: 09/14/2017 HISTORY OF PRESENT ILLNESS: The patient presents as an 82-year-old female with chief complaint of edema, lymphedema of both lower extremities. The patient has a history of recent fall and was admitted. PAST MEDICAL HISTORY: Asthma, coronary artery disease, chronic kidney disease stage 4, diastolic heart disease, DJD, type 2 diabetes, essential primary hypertension, hyperlipidemia, macular degeneration, morbid obesity, severe protein calorie malnutrition, shingles, stroke, cancer, transaminitis. vitamin B12 deficiency. PAST SURGICAL HISTORY: History of back surgery, bladder suspension, appendectomy, triple bypass 3 years ago, cardiac catheterization, hysterectomy, total knee arthroplasty in 2008. SOCIAL HISTORY: Denies smoking, illicit drug use or alcohol. FAMILY HISTORY: Mother from kidney cancer at age 32. Father at 69 from [place]. ALLERGIES: PENICILLIN AND IODINE. PHYSICAL EXAMINATION: EXTREMITIES: Lower extremity examination: Edema, lymphedema, bilateral lower extremities with mild erythema to anterior bilateral lower legs. Negative Homans sign. No signs of DVT. No signs of abscess. Edema to the dorsal foot also noted. ASSESSMENT: Edema, lymphedema of both lower extremities with venous stasis and erythema. PLAN: Evaluation and management, applied Unna boots to both lower extremities and we will reappoint for followup. LIZBET WOODS DPM CM:CONSTR:REPORT OF CONSULTATION 1214 09/14/17 1948 interface
[~2017-09-14 04:02] MED LIST changes: +COSOPT PF EYE1 EACH OP; +FUROSEMIDE40 MG PO; +K-TAB10 MEQ PO; +NOVOLOG FL100 UNIT/1 SQ; +VENTOLIN 02.5 MG/3 M INH; +VITAMIN D50000 UNIT PO
[2017-09-14 06:37] LABS: BASO % 0.3 % (0.0-1.0); EOS # 0.2 10*3/uL (0.0-0.4); EOS % 1.7 % (1.0-4.0); HEMOGLOBIN 13.2 g/dl (12.0-16.0); LYMPH # 1.6 10*3/uL (1.3-4.4); LYMPH % 15.1 % (27.0-41.0); MEAN CELL VOLUME 84.8 fl (81.0-99.0); MEAN CORPUSCULAR HGB 26.7 pg (27.0-31.0); MEAN CORPUSCULAR HGB CONC 31.4 g/dl (33.0-37.0); MEAN PLATELET VOLUME 10.1 fl (9.6-12.3); MONO # 0.8 10*3/uL (0.1-1.0); MONO % 7.6 % (3.0-9.0); NEUT # 7.8 10*3/uL (2.3-7.9); NEUT % 74.9 % (47.0-73.0); PLATELET COUNT AUTOMATED 259 10*3/uL (130-400); RED BLOOD COUNT 4.95 10*6/uL (4.10-5.10); RED CELL DISTRI WIDTH 13.7 % (0-14.5); WHITE BLOOD COUNT 10.4 10*3/uL (4.8-10.8)
[2017-09-14 06:53] LABS: ALBUMIN 2.8 gm/dl (3.1-4.5); CREATININE 1.96 mg/dL (0.55-1.02); POTASSIUM 3.1 mmol/L (3.5-5.1); TOTAL PROTEIN 7.2 gm/dL (6.4-8.2)
[2017-09-14 06:54] LABS: TROPONIN I 0.032 ng/ml (<0.045)
[2017-09-14 06:58] LABS: TROPONIN I 0.032 ng/ml (<0.045)
[2017-09-14 11:37] LABS: BILIRUBIN NEGATIVE (NEGATIVE); BLOOD 3+ (NEGATIVE); CLARITY CLOUDY (CLEAR); COLOR YELLOW (YELLOW); GLUCOSE NEGATIVE (NEGATIVE); KETONE NEGATIVE (NEGATIVE); LEUKO ESTERASE 2+ (NEGATIVE); NITRITE NEGATIVE (NEGATIVE); SPECIFIC GRAVITY 1.025 (1.005-1.030); UROBILINOGEN 0.2 E.U./dl (0.2-1.0)
[2017-09-14 11:46] LABS: WBC TNTC wbc/hpf (0-5)
[2017-09-15 07:13] LABS: CREATININE 2.19 mg/dL (0.55-1.02); POTASSIUM 3.8 mmol/L (3.5-5.1)
[2017-09-15 08:00] VITALS: BP 149/61
[2017-09-15 12:00] VITALS: BP 156/64
[2017-09-15 16:00] VITALS: BP 152/74
[2017-09-15 20:00] VITALS: BP 173/70
[2017-09-16] VITALS: BP 145/56
[2017-09-16 08:00] VITALS: BP 155/58
[2017-09-16 10:53] LABS: BASO % 0.5 % (0.0-1.0); EOS # 0.6 10*3/uL (0.0-0.4); EOS % 7.7 % (1.0-4.0); HEMATOCRIT 37.8 % (37.0-47.0); HEMOGLOBIN 11.6 g/dl (12.0-16.0); LYMPH # 2.1 10*3/uL (1.3-4.4); LYMPH % 28.4 % (27.0-41.0); MEAN CELL VOLUME 86.9 fl (81.0-99.0); MEAN CORPUSCULAR HGB 26.7 pg (27.0-31.0); MEAN CORPUSCULAR HGB CONC 30.7 g/dl (33.0-37.0); MEAN PLATELET VOLUME 10.6 fl (9.6-12.3); MONO # 0.9 10*3/uL (0.1-1.0); MONO % 11.8 % (3.0-9.0); NEUT # 3.8 10*3/uL (2.3-7.9); NEUT % 51.3 % (47.0-73.0); PLATELET COUNT AUTOMATED 216 10*3/uL (130-400); RED BLOOD COUNT 4.35 10*6/uL (4.10-5.10); RED CELL DISTRI WIDTH 14.1 % (0-14.5); WHITE BLOOD COUNT 7.4 10*3/uL (4.8-10.8)
[2017-09-16 11:22] LABS: CREATININE 2.22 mg/dL (0.55-1.02); POTASSIUM 3.9 mmol/L (3.5-5.1)
[2017-09-16 12:00] VITALS: BP 162/78
[2017-09-16 16:00] VITALS: BP 149/57
[2017-09-16 20:00] VITALS: BP 154/58
[2017-09-17] VITALS: BP 154/74
[2017-09-17 08:00] VITALS: BP 158/72
[2017-09-17 08:12] VITALS: BP 164/72
[2017-09-17 12:00] VITALS: BP 164/62
[2017-09-17 16:00] VITALS: BP 158/80
[2017-09-17 20:00] VITALS: BP 170/60
[2017-09-18] VITALS: BP 156/65
[2017-09-18 08:00] VITALS: BP 163/60
[2017-09-18 12:00] VITALS: BP 167/78
[2017-09-18] MEDS ORDERED: CEFUROXIME250 MG PO (14:13)
[2017-09-18] MEDS ORDERED: VITAMIN D31000 UNI1 PO (14:13)
[2017-09-18] MEDS ORDERED: LEVEMIR100 UNIT/1 SC (14:13)
[2017-09-18] MEDS ORDERED: Insulin Lispro, Reco SC (14:13)
== END 2017-09-18 17:00 | disposition other institution (70) | DRG 690 ==
LOC: ED 04:02 → EDHOLD 06:16 → 5E 06:16
PROVIDERS: Hospitalist; Internal Medicine; Student in an Organized Health Care Education/Training Program
DX: N39.0 Urinary tract infection, site not specified (principal); E11.22 Type 2 diabetes mellitus with diabetic chronic kidney disease; N18.4 Chronic kidney disease, stage 4 (severe); E11.65 Type 2 diabetes mellitus with hyperglycemia; I50.30 Unspecified diastolic (congestive) heart failure; I50.32 Chronic diastolic (congestive) heart failure; I13.0 Hypertensive heart and chronic kidney disease with heart failure and stage 1 through stage 4 chronic kidney disease, or unspecified chronic kidney disease; I89.0 Lymphedema, not elsewhere classified; I87.8 Other specified disorders of veins; R29.6 Repeated falls; R53.81 Other malaise; W10.9XXA Fall (on) (from) unspecified stairs and steps, initial encounter; I25.10 Atherosclerotic heart disease of native coronary artery without angina pectoris; M15.9 Polyosteoarthritis, unspecified; J45.909 Unspecified asthma, uncomplicated; E66.01 Morbid (severe) obesity due to excess calories; H35.30 Unspecified macular degeneration; L53.9 Erythematous condition, unspecified; R52 Pain, unspecified; E78.5 Hyperlipidemia, unspecified; Z95.1 Presence of aortocoronary bypass graft; Z79.4 Long term (current) use of insulin; Z88.0 Allergy status to penicillin; Z91.041 Radiographic dye allergy status; Z90.710 Acquired absence of both cervix and uterus; Z82.49 Family history of ischemic heart disease and other diseases of the circulatory system; Z83.3 Family history of diabetes mellitus; Z82.3 Family history of stroke; Z80.51 Family history of malignant neoplasm of kidney; Z87.19 Personal history of other diseases of the digestive system; Z86.73 Personal history of transient ischemic attack (TIA), and cerebral infarction without residual deficits; Z68.33 Body mass index [BMI] 33.0-33.9, adult; Y93.89 Activity, other specified; Y92.89 Other specified places as the place of occurrence of the external cause; Y99.8 Other external cause status

== ENCOUNTER → 2017-11-14 | Outpatient (CLI) | payer MEDICARE ==
[~2017-11-14] MED LIST changes: +CEFUROXIME250 MG PO; +LEVEMIR100 UNIT/1 SC; +VITAMIN D31000 UNI1 PO
[2017-11-14 11:44] LABS: BASO % 0.4 % (0.0-1.0); EOS # 0.6 10*3/uL (0.0-0.4); EOS % 5.5 % (1.0-4.0); HEMATOCRIT 42.7 % (37.0-47.0); HEMOGLOBIN 13.1 g/dl (12.0-16.0); LYMPH # 2.7 10*3/uL (1.3-4.4); LYMPH % 25.5 % (27.0-41.0); MEAN CELL VOLUME 89.1 fl (81.0-99.0); MEAN CORPUSCULAR HGB 27.3 pg (27.0-31.0); MEAN CORPUSCULAR HGB CONC 30.7 g/dl (33.0-37.0); MEAN PLATELET VOLUME 10.7 fl (9.6-12.3); MONO # 1.1 10*3/uL (0.1-1.0); NEUT # 6.3 10*3/uL (2.3-7.9); NEUT % 58.3 % (47.0-73.0); PLATELET COUNT AUTOMATED 188 10*3/uL (130-400); RED BLOOD COUNT 4.79 10*6/uL (4.10-5.10); RED CELL DISTRI WIDTH 14.7 % (0-14.5); WHITE BLOOD COUNT 10.7 10*3/uL (4.8-10.8)
[2017-11-14 12:05] LABS: ALBUMIN 3.1 gm/dl (3.1-4.5); CREATININE 1.83 mg/dL (0.55-1.02); TOTAL PROTEIN 7.2 gm/dL (6.4-8.2)
== END | disposition home or self-care (01) ==
LOC: LAB 11:18
PROVIDERS: Nurse Practitioner Family
DX: E78.4 Other hyperlipidemia (principal); I11.0 Hypertensive heart disease with heart failure; E11.65 Type 2 diabetes mellitus with hyperglycemia; I50.32 Chronic diastolic (congestive) heart failure

== ENCOUNTER 2017-12-09 13:17 | Inpatient (IN) | payer MEDICARE ==
[2017-12-09] VITALS (11 sets, daily range): BP systolic 139–190; BP diastolic 61–110
[~2017-12-09] VITALS: Ht 160 cm; Wt 91.3 kg
--- NOTE | ~2017-12-09 | PR ---
[place], [place] PROGRESS NOTE NAME: MARIA ISABEL FELICIANO UNIT #: [id number] ROOM: 528 DOCTOR: IRIS CLARK MD BIRTHDATE: [birth year] DOS: 12/12/2017 SUBJECTIVE: The patient is sitting in the chair. Denies any fever, chills, nausea, vomiting. She has a Rain catheter in place, which was placed in the ER. No burning, no bladder spasms. Has back pain from her fall. PHYSICAL EXAMINATION: GENERAL: Alert, oriented x 3. HEENT: Atraumatic, normocephalic. RESPIRATORY: Air entry bilaterally equal. No wheeze, no crackles. CARDIOVASCULAR: S1, S2 normal, no murmurs, rubs or gallops. ABDOMEN: Soft, nontender, nondistended. Lower abdominal tenderness, which she attributes to history of gallstones and has always been there in the past, back pain from her recent fall. EXTREMITIES: 1+ pitting edema. LABORATORY DATA AND IMAGING: Noted. ASSESSMENT AND PLAN: Suspected urinary tract infection, history of bladder suspension, currently with some asymptomatic bacteriuria with VRE. Continue on contact isolation. We will recommend to discontinue the Rain and after 8 hours check her bladder scan. If excessive volume retain, will need a Rain catheter. In the meanwhile, try Flomax. Thank you for your consult. Please call if any questions. I will continue to follow the patient. Nataly Clark MD CM:PNTRANS [id number] IRIS CLARK MD 12/13/17 0043 interface
[2017-12-09 14:06] LABS: BASO % 0.4 % (0.0-1.0); EOS # 0.5 10*3/uL (0.0-0.4); EOS % 5.8 % (1.0-4.0); HEMATOCRIT 43.4 % (37.0-47.0); LYMPH # 2.2 10*3/uL (1.3-4.4); LYMPH % 26.2 % (27.0-41.0); MEAN CELL VOLUME 86.6 fl (81.0-99.0); MEAN CORPUSCULAR HGB 27.9 pg (27.0-31.0); MEAN CORPUSCULAR HGB CONC 32.3 g/dl (33.0-37.0); MEAN PLATELET VOLUME 10.9 fl (9.6-12.3); MONO # 0.7 10*3/uL (0.1-1.0); MONO % 8.3 % (3.0-9.0); NEUT # 4.8 10*3/uL (2.3-7.9); NEUT % 58.8 % (47.0-73.0); PLATELET COUNT AUTOMATED 203 10*3/uL (130-400); RED BLOOD COUNT 5.01 10*6/uL (4.10-5.10); RED CELL DISTRI WIDTH 14.5 % (0-14.5); WHITE BLOOD COUNT 8.2 10*3/uL (4.8-10.8)
[2017-12-09 14:19] LABS: ACT PARTIAL THROMBO TIME 21.2 SECONDS (20.8-31.5)
[2017-12-09 14:22] LABS: BILIRUBIN NEGATIVE (NEGATIVE); BLOOD 1+ (NEGATIVE); CLARITY CLEAR (CLEAR); COLOR YELLOW (YELLOW); GLUCOSE NEGATIVE (NEGATIVE); KETONE NEGATIVE (NEGATIVE); LEUKO ESTERASE NEGATIVE (NEGATIVE); NITRITE NEGATIVE (NEGATIVE); UROBILINOGEN 0.2 E.U./dl (0.2-1.0)
[2017-12-09 14:23] LABS: ALBUMIN 3.1 gm/dl (3.1-4.5); CREATININE 1.85 mg/dL (0.55-1.02); POTASSIUM 3.3 mmol/L (3.5-5.1); TOTAL PROTEIN 7.1 gm/dL (6.4-8.2); TROPONIN I 0.032 ng/ml (<0.045)
[2017-12-09 14:48] LABS: BACTERIA 1+
[2017-12-09] MEDS ORDERED: LASIX20 MG PO (17:43)
[2017-12-09] MEDS ORDERED: DULOXETINE HCL30 MG PO (17:44)
[2017-12-09] MEDS ORDERED: K-TAB20 MEQ PO (17:44)
[2017-12-09] MEDS ORDERED: VITAMIN D50000 UNIT PO (17:55)
[2017-12-09] MEDS ORDERED: BASAG SOL SC (17:57)
[2017-12-09] MEDS ORDERED: HYDROCHLOROTH12.5 M2 PO (17:58)
[2017-12-09] MEDS ORDERED: TRAD5TAB1 PO (17:59)
[2017-12-09] MEDS ORDERED: CRESTOR5 MG PO (17:59)
[2017-12-09] MEDS ORDERED: NOVOLOG FL100 UNIT/1 SC (18:01)
[2017-12-10] VITALS: BP 138/44; BP 142/70
[2017-12-10 06:26] LABS: BASO % 0.3 % (0.0-1.0); EOS # 0.4 10*3/uL (0.0-0.4); EOS % 6.3 % (1.0-4.0); HEMATOCRIT 40.4 % (37.0-47.0); HEMOGLOBIN 12.4 g/dl (12.0-16.0); LYMPH # 1.6 10*3/uL (1.3-4.4); LYMPH % 26.4 % (27.0-41.0); MEAN CELL VOLUME 89.6 fl (81.0-99.0); MEAN CORPUSCULAR HGB 27.5 pg (27.0-31.0); MEAN CORPUSCULAR HGB CONC 30.7 g/dl (33.0-37.0); MEAN PLATELET VOLUME 11.2 fl (9.6-12.3); MONO # 0.8 10*3/uL (0.1-1.0); MONO % 12.1 % (3.0-9.0); NEUT # 3.4 10*3/uL (2.3-7.9); NEUT % 54.6 % (47.0-73.0); PLATELET COUNT AUTOMATED 175 10*3/uL (130-400); RED BLOOD COUNT 4.51 10*6/uL (4.10-5.10); RED CELL DISTRI WIDTH 14.8 % (0-14.5); WHITE BLOOD COUNT 6.2 10*3/uL (4.8-10.8)
[2017-12-10 06:54] LABS: ALBUMIN 2.6 gm/dl (3.1-4.5); CREATININE 2.09 mg/dL (0.55-1.02); PHOSPHOROUS 3.5 mg/dL (2.5-4.9); POTASSIUM 3.4 mmol/L (3.5-5.1); TOTAL PROTEIN 6.1 gm/dL (6.4-8.2)
[2017-12-10 06:59] LABS: THYROID STIM HORMONE (HS) 4.84 uIU/ml (0.358-4.75)
[2017-12-10 07:52] LABS: VITAMIN D, 25-HYDROXY 46.2 ng/mL (30-100)
[2017-12-10 08:00] VITALS: BP 150/64
[2017-12-10 16:00] VITALS: BP 160/71
[2017-12-10 20:00] VITALS: BP 156/74
[2017-12-11] VITALS: BP 142/70
[2017-12-11 06:49] LABS: BASO % 0.4 % (0.0-1.0); EOS # 0.5 10*3/uL (0.0-0.4); EOS % 6.2 % (1.0-4.0); HEMATOCRIT 37.9 % (37.0-47.0); HEMOGLOBIN 11.6 g/dl (12.0-16.0); LYMPH # 2.1 10*3/uL (1.3-4.4); LYMPH % 25.4 % (27.0-41.0); MEAN CELL VOLUME 90.5 fl (81.0-99.0); MEAN CORPUSCULAR HGB 27.7 pg (27.0-31.0); MEAN CORPUSCULAR HGB CONC 30.6 g/dl (33.0-37.0); MEAN PLATELET VOLUME 11.4 fl (9.6-12.3); MONO % 11.5 % (3.0-9.0); NEUT # 4.7 10*3/uL (2.3-7.9); NEUT % 56.3 % (47.0-73.0); PLATELET COUNT AUTOMATED 145 10*3/uL (130-400); RED BLOOD COUNT 4.19 10*6/uL (4.10-5.10); RED CELL DISTRI WIDTH 14.9 % (0-14.5); WHITE BLOOD COUNT 8.3 10*3/uL (4.8-10.8)
[2017-12-11 06:58] LABS: CREATININE 1.95 mg/dL (0.55-1.02); FREE T4 0.9 ng/dl (0.76-1.46); POTASSIUM 3.4 mmol/L (3.5-5.1)
[2017-12-11 07:04] LABS: THYROID STIM HORMONE (HS) 5.19 uIU/ml (0.358-4.75)
[2017-12-11 08:00] VITALS: BP 151/50
[2017-12-11 12:00] VITALS: BP 139/53
[2017-12-11 16:00] VITALS: BP 157/55
[2017-12-11 20:00] VITALS: BP 154/75
[2017-12-12] VITALS: BP 160/82; BP 174/70
[2017-12-12 03:06] VITALS: BP 162/74
[2017-12-12 07:08] LABS: CREATININE 1.88 mg/dL (0.55-1.02); POTASSIUM 3.3 mmol/L (3.5-5.1)
[2017-12-12 08:00] VITALS: BP 151/64
[2017-12-12 16:00] VITALS: BP 155/74
[2017-12-12 20:00] VITALS: BP 150/90
[2017-12-13] VITALS: BP 160/62
[2017-12-13 07:24] LABS: POTASSIUM 3.7 mmol/L (3.5-5.1)
[2017-12-13 07:26] LABS: CREATININE 1.94 mg/dL (0.55-1.02)
[2017-12-13 08:00] VITALS: BP 163/69
[2017-12-13 12:00] VITALS: BP 157/65
[2017-12-13 16:00] VITALS: BP 163/78
[2017-12-14] VITALS: BP 160/67
[2017-12-14 08:00] VITALS: BP 148/67
[2017-12-14 12:00] VITALS: BP 154/55
[2017-12-14] MEDS ORDERED: HYDROCODONE-AC1 EAC1 PO (14:26)
[2017-12-14 16:00] VITALS: BP 151/65
== END 2017-12-14 17:50 | disposition other institution (70) | DRG 535 ==
LOC: ED 13:17 → 5E 15:35 → EDHOLD 15:35 → 5E 16:03
PROVIDERS: Hospitalist; Internal Medicine; Student in an Organized Health Care Education/Training Program
DX: S32.592A Other specified fracture of left pubis, initial encounter for closed fracture (principal); E43 Unspecified severe protein-calorie malnutrition; N18.4 Chronic kidney disease, stage 4 (severe); N39.0 Urinary tract infection, site not specified; I50.32 Chronic diastolic (congestive) heart failure; I13.0 Hypertensive heart and chronic kidney disease with heart failure and stage 1 through stage 4 chronic kidney disease, or unspecified chronic kidney disease; Z68.35 Body mass index [BMI] 35.0-35.9, adult; I16.0 Hypertensive urgency; R26.2 Difficulty in walking, not elsewhere classified; H35.30 Unspecified macular degeneration; M15.9 Polyosteoarthritis, unspecified; Z96.659 Presence of unspecified artificial knee joint; J45.909 Unspecified asthma, uncomplicated; E78.5 Hyperlipidemia, unspecified; W18.30XA Fall on same level, unspecified, initial encounter; I25.10 Atherosclerotic heart disease of native coronary artery without angina pectoris; E66.01 Morbid (severe) obesity due to excess calories; E11.22 Type 2 diabetes mellitus with diabetic chronic kidney disease; E53.8 Deficiency of other specified B group vitamins; E87.6 Hypokalemia; B95.2 Enterococcus as the cause of diseases classified elsewhere; X58.XXXA Exposure to other specified factors, initial encounter; Z16.21 Resistance to vancomycin; Z88.0 Allergy status to penicillin; Z91.041 Radiographic dye allergy status; Z79.899 Other long term (current) drug therapy; Z79.4 Long term (current) use of insulin; Z95.1 Presence of aortocoronary bypass graft; Z90.49 Acquired absence of other specified parts of digestive tract; Z90.710 Acquired absence of both cervix and uterus; Z82.49 Family history of ischemic heart disease and other diseases of the circulatory system; Z80.51 Family history of malignant neoplasm of kidney; Y93.89 Activity, other specified; Y92.89 Other specified places as the place of occurrence of the external cause; Y99.8 Other external cause status

== ENCOUNTER 2017-12-29 14:48 | Inpatient (IN) | payer MEDICARE, MEDICAID ==
[~2017-12-29] VITALS: Ht 160 cm; Wt 88.6 kg
--- NOTE | ~2017-12-29 | CON ---
[place], [place] REPORT OF CONSULTATION NAME: MARIA ISABEL FELICIANO UNIT #: [id number] ROOM: 507 DOCTOR: LIZBET WOODS DPM BIRTHDATE: [birth year] DOS: 12/30/2017 HISTORY OF PRESENT ILLNESS: The patient presents as an 82-year-old female who is well known to me, who has had chronic lower extremity venous insufficiency, lymphedema, bilateral. PAST MEDICAL HISTORY: Asthma, coronary artery disease, cholelithiasis, chronic kidney disease stage 4, diastolic heart failure, DJD of multiple sites, type 2 diabetes, essential hypertension, frequent falls, hyperlipidemia, macular degeneration, morbid obesity, pubic ramus fracture, severe protein calorie malnutrition, throat CA, vitamin B12 deficiency, VRE culture positive. PAST SURGICAL HISTORY: Back, bladder suspension, appendectomy, CABG, triple bypass 3 years ago, cardiac cath, hysterectomy, total knee arthroplasty in 2008. SOCIAL HISTORY: Denies illicit drug use, drinking alcohol or smoking. FAMILY HISTORY: Mother at age 32 of cancer of kidney. Father at age 69 of [place]. ALLERGIES: IODINE and PENICILLIN. PHYSICAL EXAMINATION: LOWER EXTREMITIES: There is mild edema, lymphedema to bilateral lower extremities. There is decreased area of erythema to the anterior bilateral leg compared to the patient's last visit at the office. Pedal pulses are diminished. Decreased hair growth bilateral. ASSESSMENT: Venous insufficiency, lymphedema, peripheral vascular disease bilateral. PLAN: Evaluation and management. The patient has pending orders for arterial ultrasound to both lower extremities. I also ordered venous Doppler of bilateral lower extremity, ordered Tubigrip to be applied to both lower extremities until testing can be obtained, possible Unna boot applications on Monday or Monday if edema increases and testing is within normal parameters. LIZBET WOODS DPM CM:CONSTR:REPORT OF CONSULTATION 1136 12/30/17 1510 interface
--- NOTE | ~2017-12-29 | PR ---
[place], [place] PROGRESS NOTE NAME: MARIA ISABEL FELICIANO [facility] LLCT #: [id number] UNIT #: [id number] ROOM: 507 DOCTOR: KRYSTAL JIMENEZ DPM BIRTHDATE: [birth year] DOS: 01/01/2018 SUBJECTIVE: The patient is seen for followup of venous insufficiency edema both lower extremities. She has minimal complaints in regard to her legs. She has been trying to elevate her legs as much as possible. OBJECTIVE: Neurovascular status is unchanged. There is some mild dependent edema noted bilaterally with no erythema or increased temperature. No open wounds, no drainage or blisters noted. Overall, her legs are stable at this time. ASSESSMENT: Venous insufficiency edema. PLAN: Evaluation and management. Would recommend continue with the Tubigrip at this time to provide compression to reduce peripheral edema. Encouraged to elevate her legs as much as possible. Follow up tomorrow with Dr. Major. If she is discharged, he will follow her up in the office. KRYSTAL JIMENEZ DPM CM:PNTRANS [id number] KRYSTAL JIMENEZ DPM 01/01/18 1249 interface
[~2017-12-29 14:48] MED LIST changes: +BASAG SOL SC; +CRESTOR5 MG PO; +DULOXETINE HCL30 MG PO; +HYDROCHLOROTH12.5 M2 PO; +HYDROCODONE-AC1 EAC1 PO; +K-TAB20 MEQ PO; +NOVOLOG FL100 UNIT/1 SC; +TRAD5TAB1 PO
[2017-12-29 14:59] VITALS: BP 170/81
[2017-12-29 15:36] LABS: BASO % 0.1 % (0.0-1.0); EOS # 0.1 10*3/uL (0.0-0.4); HEMOGLOBIN 13.7 g/dl (12.0-16.0); LYMPH # 2.3 10*3/uL (1.3-4.4); LYMPH % 23.9 % (27.0-41.0); MEAN CELL VOLUME 86.4 fl (81.0-99.0); MEAN CORPUSCULAR HGB 28.2 pg (27.0-31.0); MEAN CORPUSCULAR HGB CONC 32.6 g/dl (33.0-37.0); MEAN PLATELET VOLUME 10.8 fl (9.6-12.3); MONO # 1.3 10*3/uL (0.1-1.0); MONO % 13.4 % (3.0-9.0); NEUT # 5.8 10*3/uL (2.3-7.9); NEUT % 61.2 % (47.0-73.0); PLATELET COUNT AUTOMATED 283 10*3/uL (130-400); RED BLOOD COUNT 4.86 10*6/uL (4.10-5.10); RED CELL DISTRI WIDTH 14.2 % (0-14.5); WHITE BLOOD COUNT 9.5 10*3/uL (4.8-10.8)
[2017-12-29 15:44] VITALS: BP 184/68
[2017-12-29 15:52] LABS: ALBUMIN 2.7 gm/dl (3.1-4.5); CREATININE 2.09 mg/dL (0.55-1.02); POTASSIUM 3.6 mmol/L (3.5-5.1); TOTAL PROTEIN 7.6 gm/dL (6.4-8.2)
[2017-12-29 15:53] LABS: TROPONIN I 0.022 ng/ml (<0.045)
[2017-12-29 16:30] VITALS: BP 105/86
[2017-12-29 17:00] VITALS: BP 161/98
[2017-12-29 17:41] LABS: BILIRUBIN NEGATIVE (NEGATIVE); BLOOD 1+ (NEGATIVE); CLARITY CLEAR (CLEAR); COLOR YELLOW (YELLOW); GLUCOSE 1+ (NEGATIVE); KETONE NEGATIVE (NEGATIVE); LEUKO ESTERASE NEGATIVE (NEGATIVE); NITRITE NEGATIVE (NEGATIVE); UROBILINOGEN 0.2 E.U./dl (0.2-1.0)
[2017-12-29 18:05] LABS: BACTERIA 1+
[2017-12-29 20:00] VITALS: BP 152/74
[2017-12-29 20:36] VITALS: BP 152/74
[2017-12-30 00:38] VITALS: BP 175/87
[2017-12-30 07:14] LABS: BASO % 0.1 % (0.0-1.0); HEMATOCRIT 41.6 % (37.0-47.0); HEMOGLOBIN 12.9 g/dl (12.0-16.0); LYMPH # 0.4 10*3/uL (1.3-4.4); LYMPH % 6.3 % (27.0-41.0); MEAN CELL VOLUME 88.5 fl (81.0-99.0); MEAN CORPUSCULAR HGB 27.4 pg (27.0-31.0); MONO # 0.3 10*3/uL (0.1-1.0); MONO % 3.7 % (3.0-9.0); NEUT # 6.2 10*3/uL (2.3-7.9); PLATELET COUNT AUTOMATED 290 10*3/uL (130-400); RED CELL DISTRI WIDTH 14.2 % (0-14.5); WHITE BLOOD COUNT 6.9 10*3/uL (4.8-10.8)
[2017-12-30 07:30] LABS: POTASSIUM 3.1 mmol/L (3.5-5.1)
[2017-12-30 08:00] VITALS: BP 141/47
[2017-12-30 12:00] VITALS: BP 109/82
[2017-12-30 16:00] VITALS: BP 161/83
[2017-12-30 20:00] VITALS: BP 152/55
[2017-12-31] VITALS: BP 145/41
[2017-12-31 08:00] VITALS: BP 143/65
[2017-12-31 08:04] LABS: HEMATOCRIT 38.6 % (37.0-47.0); HEMOGLOBIN 12.1 g/dl (12.0-16.0); MEAN CELL VOLUME 88.9 fl (81.0-99.0); MEAN CORPUSCULAR HGB 27.9 pg (27.0-31.0); MEAN CORPUSCULAR HGB CONC 31.3 g/dl (33.0-37.0); PLATELET COUNT AUTOMATED 291 10*3/uL (130-400); RED BLOOD COUNT 4.34 10*6/uL (4.10-5.10); RED CELL DISTRI WIDTH 14.4 % (0-14.5); WHITE BLOOD COUNT 13.8 10*3/uL (4.8-10.8)
[2017-12-31 08:28] LABS: CREATININE 1.98 mg/dL (0.55-1.02); POTASSIUM 3.1 mmol/L (3.5-5.1)
[2017-12-31 09:01] LABS: PLATELET SUFFICIENCY NORMAL (NORMAL); TOTAL CELLS COUNTED 100 #CELLS
[2017-12-31 12:00] VITALS: BP 148/55
[2017-12-31 16:00] VITALS: BP 146/54
[2017-12-31 20:00] VITALS: BP 159/69
[2018-01-01] VITALS: BP 157/61
[2018-01-01 08:00] VITALS: BP 157/79
[2018-01-01 12:00] VITALS: BP 156/77
[2018-01-01] MEDS ORDERED: DULE1ARO INH (13:18)
[2018-01-01 16:00] VITALS: BP 143/67
[2018-01-01 20:00] VITALS: BP 151/65
[2018-01-02] VITALS: BP 128/61
[2018-01-02 08:00] VITALS: BP 130/90
[2018-01-02] MEDS ORDERED: ZYVOX600 MG PO (10:31)
[2018-01-02] MEDS ORDERED: Humalog SQ (10:36)
[2018-01-02] MEDS ORDERED: MUCINEX ER600 MG PO (10:36)
[2018-01-02] MEDS ORDERED: HYDROCODONE-AC1 EAC1 PO (10:36)
[2018-01-02 12:00] VITALS: BP 147/72
[2018-01-02 16:00] VITALS: BP 135/46
== END 2018-01-02 17:19 | DRG 871 ==
LOC: ED 14:48 → 5E 18:17 → EDHOLD 18:17 → 5E 18:40
PROVIDERS: Internal Medicine; Physician Assistant; Student in an Organized Health Care Education/Training Program
DX: A41.9 Sepsis, unspecified organism (principal); J18.9 Pneumonia, unspecified organism; E43 Unspecified severe protein-calorie malnutrition; E11.22 Type 2 diabetes mellitus with diabetic chronic kidney disease; J44.0 Chronic obstructive pulmonary disease with (acute) lower respiratory infection; E87.2 Acidosis; J45.901 Unspecified asthma with (acute) exacerbation; E66.01 Morbid (severe) obesity due to excess calories; E11.65 Type 2 diabetes mellitus with hyperglycemia; E11.51 Type 2 diabetes mellitus with diabetic peripheral angiopathy without gangrene; J44.1 Chronic obstructive pulmonary disease with (acute) exacerbation; I13.0 Hypertensive heart and chronic kidney disease with heart failure and stage 1 through stage 4 chronic kidney disease, or unspecified chronic kidney disease; I50.32 Chronic diastolic (congestive) heart failure; N18.4 Chronic kidney disease, stage 4 (severe); E87.1 Hypo-osmolality and hyponatremia; E87.8 Other disorders of electrolyte and fluid balance, not elsewhere classified; R65.20 Severe sepsis without septic shock; Z16.21 Resistance to vancomycin; R80.9 Proteinuria, unspecified; Z96.659 Presence of unspecified artificial knee joint; I25.10 Atherosclerotic heart disease of native coronary artery without angina pectoris; E78.5 Hyperlipidemia, unspecified; H35.30 Unspecified macular degeneration; D72.810 Lymphocytopenia; E53.8 Deficiency of other specified B group vitamins; M15.9 Polyosteoarthritis, unspecified; I87.2 Venous insufficiency (chronic) (peripheral); R29.6 Repeated falls; Z79.4 Long term (current) use of insulin; Z88.0 Allergy status to penicillin; Z90.49 Acquired absence of other specified parts of digestive tract; Z90.710 Acquired absence of both cervix and uterus; Z95.1 Presence of aortocoronary bypass graft; Z80.51 Family history of malignant neoplasm of kidney; Z83.3 Family history of diabetes mellitus; Z82.3 Family history of stroke; Z82.49 Family history of ischemic heart disease and other diseases of the circulatory system; Z87.81 Personal history of (healed) traumatic fracture; Z85.89 Personal history of malignant neoplasm of other organs and systems; Z68.33 Body mass index [BMI] 33.0-33.9, adult

== ENCOUNTER 2018-02-21 19:07 | Inpatient (IN) | payer MEDICARE, MEDICAID ==
[~2018-02-21] VITALS: Ht 160 cm; Wt 90.7 kg
[~2018-02-21 19:07] MED LIST changes: +Humalog SQ; +MUCINEX ER600 MG PO; +ZYVOX600 MG PO
[2018-02-21 19:15] VITALS: BP 174/70
[2018-02-21 21:09] VITALS: BP 157/66
[2018-02-21 22:38] LABS: BILIRUBIN NEGATIVE (NEGATIVE); BLOOD 3+ (NEGATIVE); CLARITY SL CLOUDY (CLEAR); COLOR YELLOW (YELLOW); GLUCOSE 3+ (NEGATIVE); KETONE 1+ (NEGATIVE); LEUKO ESTERASE TRACE (NEGATIVE); NITRITE NEGATIVE (NEGATIVE); UROBILINOGEN 0.2 E.U./dl (0.2-1.0)
[2018-02-21 22:41] LABS: BASO % 0.3 % (0.0-1.0); EOS # 0.3 10*3/uL (0.0-0.4); EOS % 2.9 % (1.0-4.0); HEMATOCRIT 44.3 % (37.0-47.0); HEMOGLOBIN 14.5 g/dl (12.0-16.0); LYMPH # 1.7 10*3/uL (1.3-4.4); LYMPH % 18.1 % (27.0-41.0); MEAN CELL VOLUME 88.1 fl (81.0-99.0); MEAN CORPUSCULAR HGB 28.8 pg (27.0-31.0); MEAN CORPUSCULAR HGB CONC 32.7 g/dl (33.0-37.0); MEAN PLATELET VOLUME 11.7 fl (9.6-12.3); MONO % 9.9 % (3.0-9.0); NEUT # 6.6 10*3/uL (2.3-7.9); NEUT % 68.5 % (47.0-73.0); PLATELET COUNT AUTOMATED 181 10*3/uL (130-400); RED BLOOD COUNT 5.03 10*6/uL (4.10-5.10); RED CELL DISTRI WIDTH 13.9 % (0-14.5); WHITE BLOOD COUNT 9.6 10*3/uL (4.8-10.8)
[2018-02-21 22:50] LABS: BACTERIA 3+; RBC 21-30 rbc/hpf (0-2); WBC 16-20 wbc/hpf (0-5)
[2018-02-21 23:02] LABS: CREATININE 2.19 mg/dL (0.55-1.02); POTASSIUM 2.9 mmol/L (3.5-5.1); TOTAL PROTEIN 6.9 gm/dL (6.4-8.2); TROPONIN I 0.024 ng/ml (<0.045)
[2018-02-21 23:48] VITALS: BP 148/76
[2018-02-22 00:45] VITALS: BP 156/79
[2018-02-22 04:34] LABS: BASO # 0.1 10*3/uL (0.0-0.1); BASO % 0.5 % (0.0-1.0); EOS # 0.4 10*3/uL (0.0-0.4); EOS % 3.6 % (1.0-4.0); HEMATOCRIT 41.6 % (37.0-47.0); HEMOGLOBIN 13.5 g/dl (12.0-16.0); LYMPH # 1.3 10*3/uL (1.3-4.4); LYMPH % 13.1 % (27.0-41.0); MEAN CELL VOLUME 88.3 fl (81.0-99.0); MEAN CORPUSCULAR HGB 28.7 pg (27.0-31.0); MEAN CORPUSCULAR HGB CONC 32.5 g/dl (33.0-37.0); MEAN PLATELET VOLUME 11.7 fl (9.6-12.3); MONO # 1.3 10*3/uL (0.1-1.0); MONO % 13.2 % (3.0-9.0); NEUT # 6.8 10*3/uL (2.3-7.9); NEUT % 69.3 % (47.0-73.0); PLATELET COUNT AUTOMATED 184 10*3/uL (130-400); RED BLOOD COUNT 4.71 10*6/uL (4.10-5.10); RED CELL DISTRI WIDTH 13.8 % (0-14.5); WHITE BLOOD COUNT 9.8 10*3/uL (4.8-10.8)
[2018-02-22 04:48] LABS: ACT PARTIAL THROMBO TIME 20.6 SECONDS (20.8-31.5)
[2018-02-22 04:49] LABS: ALBUMIN 2.7 gm/dl (3.1-4.5); CREATININE 1.84 mg/dL (0.55-1.02); PHOSPHOROUS 1.7 mg/dL (2.5-4.9); POTASSIUM 2.9 mmol/L (3.5-5.1)
[2018-02-22 08:00] VITALS: BP 136/61
[2018-02-22 12:00] VITALS: BP 135/56
[2018-02-22 16:00] VITALS: BP 135/68
[2018-02-22 20:00] VITALS: BP 142/57
[2018-02-23] VITALS: BP 141/60
[2018-02-23 06:42] LABS: BASO % 0.2 % (0.0-1.0); EOS # 0.6 10*3/uL (0.0-0.4); EOS % 7.2 % (1.0-4.0); HEMATOCRIT 39.5 % (37.0-47.0); HEMOGLOBIN 12.4 g/dl (12.0-16.0); LYMPH # 2.1 10*3/uL (1.3-4.4); LYMPH % 24.3 % (27.0-41.0); MEAN CORPUSCULAR HGB CONC 31.4 g/dl (33.0-37.0); MEAN PLATELET VOLUME 11.8 fl (9.6-12.3); MONO # 1.1 10*3/uL (0.1-1.0); MONO % 12.7 % (3.0-9.0); NEUT # 4.8 10*3/uL (2.3-7.9); NEUT % 55.1 % (47.0-73.0); PLATELET COUNT AUTOMATED 159 10*3/uL (130-400); RED BLOOD COUNT 4.28 10*6/uL (4.10-5.10); RED CELL DISTRI WIDTH 14.6 % (0-14.5); WHITE BLOOD COUNT 8.7 10*3/uL (4.8-10.8)
[2018-02-23 06:44] LABS: MEAN CELL VOLUME 92.3 fl (81.0-99.0)
[2018-02-23 06:50] LABS: ALBUMIN 2.6 gm/dl (3.1-4.5)
[2018-02-23 06:53] LABS: CREATININE 1.93 mg/dL (0.55-1.02); PHOSPHOROUS 3.5 mg/dL (2.5-4.9)
[2018-02-23 06:54] LABS: POTASSIUM 4.2 mmol/L (3.5-5.1)
[2018-02-23 08:00] VITALS: BP 116/72
[2018-02-23 12:00] VITALS: BP 157/65
[2018-02-23 16:00] VITALS: BP 132/52
[2018-02-23 20:00] VITALS: BP 140/54
[2018-02-24] VITALS: BP 136/65
[2018-02-24 06:53] LABS: BASO % 0.4 % (0.0-1.0); EOS # 0.6 10*3/uL (0.0-0.4); EOS % 8.3 % (1.0-4.0); HEMATOCRIT 40.3 % (37.0-47.0); HEMOGLOBIN 12.3 g/dl (12.0-16.0); LYMPH # 1.9 10*3/uL (1.3-4.4); LYMPH % 25.5 % (27.0-41.0); MEAN CELL VOLUME 92.2 fl (81.0-99.0); MEAN CORPUSCULAR HGB 28.1 pg (27.0-31.0); MEAN CORPUSCULAR HGB CONC 30.5 g/dl (33.0-37.0); MEAN PLATELET VOLUME 11.7 fl (9.6-12.3); MONO # 0.9 10*3/uL (0.1-1.0); MONO % 11.9 % (3.0-9.0); NEUT # 3.9 10*3/uL (2.3-7.9); NEUT % 53.5 % (47.0-73.0); PLATELET COUNT AUTOMATED 164 10*3/uL (130-400); RED BLOOD COUNT 4.37 10*6/uL (4.10-5.10); RED CELL DISTRI WIDTH 14.6 % (0-14.5); WHITE BLOOD COUNT 7.3 10*3/uL (4.8-10.8)
[2018-02-24 07:13] LABS: CREATININE 1.71 mg/dL (0.55-1.02); POTASSIUM 4.6 mmol/L (3.5-5.1)
[2018-02-24 08:00] VITALS: BP 129/71
[2018-02-24 12:00] VITALS: BP 146/60
[2018-02-24 16:00] VITALS: BP 145/53
[2018-02-24 20:00] VITALS: BP 152/46
[2018-02-25] VITALS: BP 144/56
[2018-02-25 08:00] VITALS: BP 127/74
[2018-02-25 12:00] VITALS: BP 142/67
[2018-02-25 16:00] VITALS: BP 154/61
[2018-02-25 20:00] VITALS: BP 151/61
[2018-02-26] VITALS: BP 151/62
[2018-02-26 08:00] VITALS: BP 145/61
[2018-02-26 12:00] VITALS: BP 140/72
[2018-02-26] MEDS ORDERED: CIPROFLOXACIN250 MG PO (12:38)
[2018-02-26 16:00] VITALS: BP 148/44
[2018-04-04] MEDS ORDERED: TIMOLOL MALEATE5 M5 OPH (04:24)
[2018-04-04] MEDS ORDERED: Ipratropium Brom3 ML INH (04:25)
[2018-04-04] MEDS ORDERED: COLACE100 MG PO (04:26)
[2018-04-04] MEDS ORDERED: DULERA 200 MCG8.8 GM INH (04:26)
[2018-04-04] MEDS ORDERED: COSOPT 2%-0.5%10 ML OP (04:27)
[2018-04-11] MEDS ORDERED: KEFLEX 500 MG E2 CAP PO (16:24)
[2018-04-11] MEDS ORDERED: MIRTAZAPINE15 M1 PO (16:24)
[2018-04-11] MEDS ORDERED: RISPERIDONE0.5 MG PO (16:24)
[2018-04-18] MEDS ORDERED: EXELON13.3 MG/21 T (10:29)
[2018-04-18] MEDS ORDERED: RISPERIDONE0.5 MG PO (10:29)
[2018-04-18] MEDS ORDERED: MIRTAZAPINE15 M2 PO (10:29)
[2018-04-18] MEDS ORDERED: MEMANTINE HCL10 MG PO (10:29)
[2018-04-18] MEDS ORDERED: LANTUS SOL100 UNIT/1 SC (10:32)
== END 2018-02-26 20:08 | disposition home or self-care (01) | DRG 682 ==
LOC: ED 19:07 → EDHOLD 23:41 → 4E 23:41
PROVIDERS: Emergency Medicine; Internal Medicine Hospice and Palliative Medicine; Internal Medicine Nephrology
DX: N17.0 Acute kidney failure with tubular necrosis (principal); E43 Unspecified severe protein-calorie malnutrition; E11.65 Type 2 diabetes mellitus with hyperglycemia; E11.22 Type 2 diabetes mellitus with diabetic chronic kidney disease; E87.2 Acidosis; E66.01 Morbid (severe) obesity due to excess calories; I25.810 Atherosclerosis of coronary artery bypass graft(s) without angina pectoris; E86.0 Dehydration; I27.21 Secondary pulmonary arterial hypertension; N39.0 Urinary tract infection, site not specified; I50.32 Chronic diastolic (congestive) heart failure; I13.0 Hypertensive heart and chronic kidney disease with heart failure and stage 1 through stage 4 chronic kidney disease, or unspecified chronic kidney disease; Z85.89 Personal history of malignant neoplasm of other organs and systems; N18.4 Chronic kidney disease, stage 4 (severe); K21.9 Gastro-esophageal reflux disease without esophagitis; Z68.30 Body mass index [BMI] 30.0-30.9, adult; R07.9 Chest pain, unspecified; R53.1 Weakness; R31.9 Hematuria, unspecified; B96.1 Klebsiella pneumoniae [K. pneumoniae] as the cause of diseases classified elsewhere; D72.810 Lymphocytopenia; E87.6 Hypokalemia; E78.5 Hyperlipidemia, unspecified; J45.909 Unspecified asthma, uncomplicated; H35.30 Unspecified macular degeneration; E53.8 Deficiency of other specified B group vitamins; M15.9 Polyosteoarthritis, unspecified; E83.39 Other disorders of phosphorus metabolism; G89.29 Other chronic pain; R29.6 Repeated falls; Z96.659 Presence of unspecified artificial knee joint; I36.1 Nonrheumatic tricuspid (valve) insufficiency; I87.2 Venous insufficiency (chronic) (peripheral); W18.39XA Other fall on same level, initial encounter; Y93.89 Activity, other specified; Y92.89 Other specified places as the place of occurrence of the external cause; Z79.4 Long term (current) use of insulin; Z86.19 Personal history of other infectious and parasitic diseases; Y99.8 Other external cause status; Z88.0 Allergy status to penicillin; Z91.041 Radiographic dye allergy status; Z79.899 Other long term (current) drug therapy; Z87.01 Personal history of pneumonia (recurrent); Z90.49 Acquired absence of other specified parts of digestive tract; Z90.710 Acquired absence of both cervix and uterus; Z95.1 Presence of aortocoronary bypass graft; Z98.61 Coronary angioplasty status; Z98.42 Cataract extraction status, left eye; Z82.49 Family history of ischemic heart disease and other diseases of the circulatory system; Z83.3 Family history of diabetes mellitus; Z82.3 Family history of stroke; Z80.51 Family history of malignant neoplasm of kidney

== ENCOUNTER 2018-03-13 09:01 | Inpatient (IN) | payer MEDICARE, MEDICAID ==
[2018-03-13] VITALS (7 sets, daily range): BP systolic 144–190; BP diastolic 48–92
[~2018-03-13] VITALS: Ht 160 cm; Wt 78.5 kg
--- NOTE | ~2018-03-13 | ST ---
[place], [place] EXERCISE STRESS TEST REPORT NAME: [facility]EL [id number] UNIT #: [id number] ROOM: 421 DOCTOR: MARK SUBRAMANIAN MD BIRTHDATE: [birth year] DOS: 03/15/2018 Lexiscan stress EKG REFERRING PHYSICIAN: Dr. Bynum. INDICATION: Chest pain, left bundle branch block. The patient underwent standard protocol Lexiscan stress EKG. Baseline EKG is normal sinus with left bundle branch block. The patient's baseline heart rate is 73 with a blood pressure of 148/84. The patient's peak heart rate was 88 with a blood pressure of 140/80. The patient had no chest pain, no arrhythmias aside from her PVCs. The EKG was nondiagnostic for ischemia, with a baseline left bundle branch block. SUMMARY OF FINDINGS: 1. Nondiagnostic stress EKG given the left bundle branch block. 2. No chest pain was noted during stress test. 3. See separate report for perfusion scan imaging results. MARK SUBRAMANIAN MD CM:STRESS:EXERCISE STRESS TEST REPORT [id number] MARK SUBRAMANIAN MD
--- NOTE | ~2018-03-13 | EKG ---
[place], [place] ELECTROCARDIOGRAM REPORT NAME: MARIA ISABEL FELICIANO UNIT #: [id number] ROOM: 421 DOCTOR: MAXIMINO DRAFT REPORT BIRTHDATE: [birth year] [facility] Test Date: 2018-03-13 Test Time: 09:45:06 Pat Name: MARIA ISABEL FELICIANO Department: Room: Gender: F Director Critical Care: : 1935 Requested By: JUAN DIEGO DE LOS SANTOS Order Number: [id number] Reading MD: Jocy Valdez MD Measurements Intervals [place] Rate: 80 P: 71 ME: 193 QRS: 14 QRSD: 126 T: 163 QT: 439 QTc: 507 Interpretive Statements Sinus rhythm Left bundle branch block Electronically Signed On 03-13-2018 12:53:08 PDT by Jocy Valdez MD CM:EKGRPT:ELECTROCARDIOGRAM REPORT [id number] JUAN DIEGO ANDERSON DRAFT REPORT JUAN DIEGO DE LOS SANTOS DO
[~2018-03-13 09:01] MED LIST changes: +CIPROFLOXACIN250 MG PO
[2018-03-13 09:27] LABS: BILIRUBIN NEGATIVE (NEGATIVE); BLOOD 1+ (NEGATIVE); CLARITY CLOUDY (CLEAR); COLOR YELLOW (YELLOW); GLUCOSE 3+ (NEGATIVE); KETONE NEGATIVE (NEGATIVE); LEUKO ESTERASE TRACE (NEGATIVE); NITRITE POSITIVE (NEGATIVE); SPECIFIC GRAVITY 1.015 (1.005-1.030); UROBILINOGEN 0.2 E.U./dl (0.2-1.0)
[2018-03-13 09:37] LABS: BACTERIA 4+; WBC 51-100 wbc/hpf (0-5); YEAST 1+
[2018-03-13 09:43] LABS: BASO % 0.5 % (0.0-1.0); EOS # 0.2 10*3/uL (0.0-0.4); EOS % 3.7 % (1.0-4.0); HEMATOCRIT 42.2 % (37.0-47.0); HEMOGLOBIN 13.4 g/dl (12.0-16.0); LYMPH # 2.3 10*3/uL (1.3-4.4); LYMPH % 36.9 % (27.0-41.0); MEAN CELL VOLUME 90.2 fl (81.0-99.0); MEAN CORPUSCULAR HGB 28.6 pg (27.0-31.0); MEAN CORPUSCULAR HGB CONC 31.8 g/dl (33.0-37.0); MEAN PLATELET VOLUME 10.9 fl (9.6-12.3); MONO # 0.6 10*3/uL (0.1-1.0); MONO % 9.4 % (3.0-9.0); NEUT # 3.1 10*3/uL (2.3-7.9); NEUT % 49.3 % (47.0-73.0); PLATELET COUNT AUTOMATED 200 10*3/uL (130-400); RED BLOOD COUNT 4.68 10*6/uL (4.10-5.10); WHITE BLOOD COUNT 6.2 10*3/uL (4.8-10.8)
[2018-03-13 09:53] LABS: ACT PARTIAL THROMBO TIME 20.8 SECONDS (20.8-31.5); INTERNATIONAL NORM RATIO 0.9 (2.0-3.5)
[2018-03-13 10:05] LABS: CREATININE 1.69 mg/dL (0.55-1.02); POTASSIUM 4.1 mmol/L (3.5-5.1); TROPONIN I 0.025 ng/ml (<0.045)
[2018-03-13] MEDS ORDERED: LASIX40 MG PO (11:39)
[2018-03-13] MEDS ORDERED: VITAMIN D350000 UNIT PO (11:39)
[2018-03-13] MEDS ORDERED: HYDROCHLOROTH12.5 M3 PO (11:39)
[2018-03-14] VITALS: BP 157/63
[2018-03-14 06:10] LABS: BASO % 0.6 % (0.0-1.0); EOS # 0.4 10*3/uL (0.0-0.4); EOS % 5.7 % (1.0-4.0); HEMATOCRIT 40.5 % (37.0-47.0); HEMOGLOBIN 12.6 g/dl (12.0-16.0); LYMPH # 2.6 10*3/uL (1.3-4.4); LYMPH % 37.9 % (27.0-41.0); MEAN CELL VOLUME 90.8 fl (81.0-99.0); MEAN CORPUSCULAR HGB 28.3 pg (27.0-31.0); MEAN CORPUSCULAR HGB CONC 31.1 g/dl (33.0-37.0); MEAN PLATELET VOLUME 11.1 fl (9.6-12.3); MONO # 0.7 10*3/uL (0.1-1.0); MONO % 10.5 % (3.0-9.0); NEUT # 3.1 10*3/uL (2.3-7.9); PLATELET COUNT AUTOMATED 204 10*3/uL (130-400); RED BLOOD COUNT 4.46 10*6/uL (4.10-5.10); RED CELL DISTRI WIDTH 15.2 % (0-14.5); WHITE BLOOD COUNT 6.9 10*3/uL (4.8-10.8)
[2018-03-14 06:14] LABS: ALBUMIN 2.7 gm/dl (3.1-4.5); CREATININE 1.64 mg/dL (0.55-1.02); PHOSPHOROUS 2.4 mg/dL (2.5-4.9); POTASSIUM 3.3 mmol/L (3.5-5.1); TOTAL PROTEIN 6.2 gm/dL (6.4-8.2)
[2018-03-14 08:00] VITALS: BP 147/62
[2018-03-14 12:00] VITALS: BP 147/54
[2018-03-14 16:00] VITALS: BP 152/63
[2018-03-14 20:00] VITALS: BP 143/51
[2018-03-15] VITALS: BP 137/62
[2018-03-15 06:13] LABS: BASO % 0.5 % (0.0-1.0); EOS # 0.4 10*3/uL (0.0-0.4); EOS % 5.5 % (1.0-4.0); LYMPH # 2.7 10*3/uL (1.3-4.4); LYMPH % 34.5 % (27.0-41.0); MEAN CELL VOLUME 93.3 fl (81.0-99.0); MEAN CORPUSCULAR HGB 28.7 pg (27.0-31.0); MEAN CORPUSCULAR HGB CONC 30.8 g/dl (33.0-37.0); MEAN PLATELET VOLUME 11.6 fl (9.6-12.3); MONO # 0.9 10*3/uL (0.1-1.0); MONO % 11.6 % (3.0-9.0); NEUT # 3.7 10*3/uL (2.3-7.9); NEUT % 47.6 % (47.0-73.0); PLATELET COUNT AUTOMATED 181 10*3/uL (130-400); RED BLOOD COUNT 4.18 10*6/uL (4.10-5.10); RED CELL DISTRI WIDTH 15.4 % (0-14.5); WHITE BLOOD COUNT 7.8 10*3/uL (4.8-10.8)
[2018-03-15 06:37] LABS: ALBUMIN 2.5 gm/dl (3.1-4.5); CREATININE 1.63 mg/dL (0.55-1.02)
[2018-03-15 06:49] LABS: POTASSIUM 4.3 mmol/L (3.5-5.1)
[2018-03-15 08:00] VITALS: BP 154/58
[2018-03-15 12:00] VITALS: BP 162/64
[2018-03-15 16:00] VITALS: BP 136/50; BP 162/64
[2018-03-15 20:00] VITALS: BP 154/66
[2018-03-16] VITALS: BP 158/62
[2018-03-16 07:29] LABS: CREATININE 1.63 mg/dL (0.55-1.02)
[2018-03-16 08:00] VITALS: BP 130/56
[2018-03-16] MEDS ORDERED: FLUCONAZOLE100 MG PO (11:45)
[2018-03-16] MEDS ORDERED: CIPRO250 MG PO (11:45)
[2018-03-16] MEDS ORDERED: DULOXETINE HCL30 MG PO (11:54)
[2018-03-16] MEDS ORDERED: METOPROLOL TART50 M1 PO (11:54)
[2018-03-16] MEDS ORDERED: KLOR-CON M2020 ME1 PO (11:54)
[2018-03-16] MEDS ORDERED: FUROSEMIDE40 MG PO (11:54)
[2018-03-16] MEDS ORDERED: LEVEMIR FL100 UNIT/1 SQ (11:54)
[2018-03-16] MEDS ORDERED: CLOPIDOGREL75 MG PO (11:54)
[2018-03-16] MEDS ORDERED: CRESTOR5 MG PO (11:54)
[2018-03-16] MEDS ORDERED: TRAD5TAB1 PO (11:58)
[2018-03-16] MEDS ORDERED: NOVOLOG FL100 UNIT/1 SQ (11:58)
[2018-03-16 12:00] VITALS: BP 149/65
[2018-03-16] MEDS ORDERED: INSULIN PEN NE1 EACH MC (12:17)
[2018-04-04] MEDS ORDERED: TIMOLOL MALEATE5 M5 OPH (04:24)
[2018-04-04] MEDS ORDERED: Ipratropium Brom3 ML INH (04:25)
[2018-04-04] MEDS ORDERED: DULERA 200 MCG8.8 GM INH (04:26)
[2018-04-04] MEDS ORDERED: COLACE100 MG PO (04:26)
[2018-04-04] MEDS ORDERED: COSOPT 2%-0.5%10 ML OP (04:27)
[2018-04-11] MEDS ORDERED: MIRTAZAPINE15 M1 PO (16:24)
[2018-04-11] MEDS ORDERED: KEFLEX 500 MG E2 CAP PO (16:24)
[2018-04-11] MEDS ORDERED: RISPERIDONE0.5 MG PO (16:24)
[2018-04-18] MEDS ORDERED: EXELON13.3 MG/21 T (10:29)
[2018-04-18] MEDS ORDERED: MIRTAZAPINE15 M2 PO (10:29)
[2018-04-18] MEDS ORDERED: RISPERIDONE0.5 MG PO (10:29)
[2018-04-18] MEDS ORDERED: MEMANTINE HCL10 MG PO (10:29)
[2018-04-18] MEDS ORDERED: LANTUS SOL100 UNIT/1 SC (10:32)
== END 2018-03-16 14:35 | disposition home health service (06) | DRG 690 ==
LOC: ED 09:01 → EDHOLD 10:56 → 4E 10:56
PROVIDERS: Emergency Medicine; Family Medicine; Registered Nurse
PROC: 4A02XM4 Measurement of Cardiac Total Activity, External Approach (ICD-10-PCS; principal; 2018-03-13)
PROC: 3E073KZ Introduction of Other Diagnostic Substance into Coronary Artery, Percutaneous Approach (ICD-10-PCS; principal; 2018-03-13)
DX: N39.0 Urinary tract infection, site not specified (principal); E87.2 Acidosis; N18.4 Chronic kidney disease, stage 4 (severe); E44.0 Moderate protein-calorie malnutrition; E11.65 Type 2 diabetes mellitus with hyperglycemia; E66.01 Morbid (severe) obesity due to excess calories; I27.20 Pulmonary hypertension, unspecified; I50.32 Chronic diastolic (congestive) heart failure; I13.0 Hypertensive heart and chronic kidney disease with heart failure and stage 1 through stage 4 chronic kidney disease, or unspecified chronic kidney disease; I87.2 Venous insufficiency (chronic) (peripheral); R31.9 Hematuria, unspecified; R29.6 Repeated falls; E78.5 Hyperlipidemia, unspecified; I25.118 Atherosclerotic heart disease of native coronary artery with other forms of angina pectoris; W01.0XXA Fall on same level from slipping, tripping and stumbling without subsequent striking against object, initial encounter; I44.7 Left bundle-branch block, unspecified; M19.90 Unspecified osteoarthritis, unspecified site; Z96.659 Presence of unspecified artificial knee joint; B96.1 Klebsiella pneumoniae [K. pneumoniae] as the cause of diseases classified elsewhere; I36.1 Nonrheumatic tricuspid (valve) insufficiency; J44.9 Chronic obstructive pulmonary disease, unspecified; E87.6 Hypokalemia; I25.2 Old myocardial infarction; Z95.1 Presence of aortocoronary bypass graft; Z98.61 Coronary angioplasty status; Y93.89 Activity, other specified; Z79.4 Long term (current) use of insulin; Y92.89 Other specified places as the place of occurrence of the external cause; Y99.8 Other external cause status; Z88.0 Allergy status to penicillin; Z91.041 Radiographic dye allergy status; Z79.899 Other long term (current) drug therapy; Z85.89 Personal history of malignant neoplasm of other organs and systems; Z90.49 Acquired absence of other specified parts of digestive tract; Z90.710 Acquired absence of both cervix and uterus; Z82.49 Family history of ischemic heart disease and other diseases of the circulatory system; Z83.3 Family history of diabetes mellitus; Z82.3 Family history of stroke; Z80.51 Family history of malignant neoplasm of kidney; Z68.31 Body mass index [BMI] 31.0-31.9, adult

== ENCOUNTER 2018-04-30 18:12 | Emergency (ER) | payer MEDICARE, MEDICAID ==
[~2018-04-30] VITALS: Ht 160 cm; Wt 80.7 kg
[~2018-04-30 18:12] MED LIST changes: +CIPRO250 MG PO; +CLOPIDOGREL75 MG PO; +COSOPT 2%-0.5%10 ML OP; +DULERA 200 MCG8.8 GM INH; +EXELON13.3 MG/21 T; +FLUCONAZOLE100 MG PO; +HYDROCHLOROTH12.5 M3 PO; +INSULIN PEN NE1 EACH MC; +Ipratropium Brom3 ML INH; +KEFLEX 500 MG E2 CAP PO; +LANTUS SOL100 UNIT/1 SC; +LEVEMIR FL100 UNIT/1 SQ; +MEMANTINE HCL10 MG PO; +MIRTAZAPINE15 M1 PO; +MIRTAZAPINE15 M2 PO; +RISPERIDONE0.5 MG PO; +TIMOLOL MALEATE5 M5 OPH; +VITAMIN D350000 UNIT PO
[2018-04-30 18:23] VITALS: BP 142/49
[2018-04-30 18:51] LABS: BILIRUBIN NEGATIVE (NEGATIVE); BLOOD 1+ (NEGATIVE); CLARITY CLEAR (CLEAR); COLOR YELLOW (YELLOW); GLUCOSE 3+ (NEGATIVE); KETONE NEGATIVE (NEGATIVE); LEUKO ESTERASE NEGATIVE (NEGATIVE); NITRITE NEGATIVE (NEGATIVE); SPECIFIC GRAVITY 1.015 (1.005-1.030); UROBILINOGEN 0.2 E.U./dl (0.2-1.0)
[2018-04-30 18:52] LABS: BASO % 0.5 % (0.0-1.0); EOS # 0.4 10*3/uL (0.0-0.4); EOS % 4.4 % (1.0-4.0); HEMATOCRIT 34.7 % (37.0-47.0); HEMOGLOBIN 10.8 g/dl (12.0-16.0); LYMPH # 2.7 10*3/uL (1.3-4.4); LYMPH % 31.1 % (27.0-41.0); MEAN CELL VOLUME 92.5 fl (81.0-99.0); MEAN CORPUSCULAR HGB 28.8 pg (27.0-31.0); MEAN CORPUSCULAR HGB CONC 31.1 g/dl (33.0-37.0); MEAN PLATELET VOLUME 11.2 fl (9.6-12.3); MONO # 0.6 10*3/uL (0.1-1.0); MONO % 7.1 % (3.0-9.0); NEUT # 4.9 10*3/uL (2.3-7.9); NEUT % 56.7 % (47.0-73.0); PLATELET COUNT AUTOMATED 191 10*3/uL (130-400); RED BLOOD COUNT 3.75 10*6/uL (4.10-5.10); RED CELL DISTRI WIDTH 13.7 % (0-14.5); WHITE BLOOD COUNT 8.6 10*3/uL (4.8-10.8)
[2018-04-30 18:58] LABS: WBC 0-2 wbc/hpf (0-5)
[2018-04-30 19:07] LABS: ALBUMIN 2.4 gm/dl (3.1-4.5); CREATININE 1.92 mg/dL (0.55-1.02); POTASSIUM 4.2 mmol/L (3.5-5.1); TOTAL PROTEIN 6.2 gm/dL (6.4-8.2)
[2018-05-09] MEDS ORDERED: Vitamin D PO (09:57)
[2018-05-09] MEDS ORDERED: EXELON13.3 MG/21 T (09:57)
[2018-05-09] MEDS ORDERED: MEMANTINE HCL10 MG PO (09:57)
[2018-05-09] MEDS ORDERED: B121000 MCG/1 IM (09:57)
[2018-05-09] MEDS ORDERED: VRAYLAR3 MG PO (09:57)
[2018-05-09] MEDS ORDERED: MIRTAZAPINE45 MG PO (09:57)
== END 2018-04-30 22:07 | disposition home health service (06) ==
LOC: ED 18:12
PROVIDERS: Emergency Medicine
DX: F23 Brief psychotic disorder (principal); I25.10 Atherosclerotic heart disease of native coronary artery without angina pectoris; E78.5 Hyperlipidemia, unspecified; E03.9 Hypothyroidism, unspecified; E66.9 Obesity, unspecified; I13.0 Hypertensive heart and chronic kidney disease with heart failure and stage 1 through stage 4 chronic kidney disease, or unspecified chronic kidney disease; E11.22 Type 2 diabetes mellitus with diabetic chronic kidney disease; N18.4 Chronic kidney disease, stage 4 (severe); I50.30 Unspecified diastolic (congestive) heart failure; J45.909 Unspecified asthma, uncomplicated; Z68.34 Body mass index [BMI] 34.0-34.9, adult; Z88.1 Allergy status to other antibiotic agents; Z88.0 Allergy status to penicillin; Z79.899 Other long term (current) drug therapy; Z79.4 Long term (current) use of insulin; Z90.49 Acquired absence of other specified parts of digestive tract; Z90.710 Acquired absence of both cervix and uterus; Z95.1 Presence of aortocoronary bypass graft; Z98.890 Other specified postprocedural states; Z96.651 Presence of right artificial knee joint

== ENCOUNTER 2018-08-17 13:43 | Inpatient (IN) | payer MEDICARE ==
[~2018-08-17] VITALS: Ht 167.6 cm; Wt 68.0 kg
--- NOTE | ~2018-08-17 | EKG ---
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
[2018-08-17 13:43] VITALS: BP 172/57
[~2018-08-17 13:43] MED LIST changes: +B121000 MCG/1 IM; +MIRTAZAPINE45 MG PO; +VRAYLAR3 MG PO; +Vitamin D PO
[2018-08-17 14:37] LABS: BILIRUBIN NEGATIVE (NEGATIVE); BLOOD TRACE-LYSED (NEGATIVE); CLARITY CLEAR (CLEAR); COLOR YELLOW (YELLOW); GLUCOSE 3+ (NEGATIVE); KETONE NEGATIVE (NEGATIVE); LEUKO ESTERASE NEGATIVE (NEGATIVE); NITRITE NEGATIVE (NEGATIVE); UROBILINOGEN 0.2 E.U./dl (0.2-1.0)
[2018-08-17 14:47] LABS: BACTERIA 2+; RBC 0-2 rbc/hpf (0-2)
[2018-08-17 14:55] LABS: BASO % 0.4 % (0.0-1.0); EOS # 0.3 10*3/uL (0.0-0.4); EOS % 2.9 % (1.0-4.0); HEMATOCRIT 42.9 % (37.0-47.0); HEMOGLOBIN 13.2 g/dl (12.0-16.0); LYMPH # 2.5 10*3/uL (1.3-4.4); LYMPH % 27.4 % (27.0-41.0); MEAN CELL VOLUME 93.9 fl (81.0-99.0); MEAN CORPUSCULAR HGB 28.9 pg (27.0-31.0); MEAN CORPUSCULAR HGB CONC 30.8 g/dl (33.0-37.0); MEAN PLATELET VOLUME 10.9 fl (9.6-12.3); MONO % 10.6 % (3.0-9.0); NEUT # 5.4 10*3/uL (2.3-7.9); NEUT % 58.3 % (47.0-73.0); PLATELET COUNT AUTOMATED 259 10*3/uL (130-400); RED BLOOD COUNT 4.57 10*6/uL (4.10-5.10); RED CELL DISTRI WIDTH 13.9 % (0-14.5); WHITE BLOOD COUNT 9.2 10*3/uL (4.8-10.8)
[2018-08-17 15:12] LABS: ALBUMIN 2.5 gm/dl (3.1-4.5); CREATININE 2.26 mg/dL (0.55-1.02); TOTAL PROTEIN 7.3 gm/dL (6.4-8.2); TROPONIN I 0.022 ng/ml (<0.045)
[2018-08-17 15:30] VITALS: BP 165/89
[2018-08-17 17:00] VITALS: BP 162/54
--- NOTE | 2018-08-17 17:00 | NUR ---
A 83, admitted to 5E, under the services of JUAN DIEGO Johnson DO with a diagnosis of DVT LEFT LEG. Chief complaint is "YOU ARE TRYING TO KILL ME" PT YELLS OUT AND IS CONFUSED.. Patient arrived via bed from ER. Monitor applied. Initial assessment completed. Vital signs taken and recorded. JUAN DIEGO JOHNSON DO notified of admission to the unit. Orders received. See assessment for past medical history, medications and allergies. Patient and/or family oriented to unit. [facility] visitation policy reviewed. Clothing/patient valuable form completed. SAM BARRIOS
[2018-08-17] MEDS ORDERED: ARGINAID POWDE1 EACH PO (17:02)
[2018-08-17] MEDS ORDERED: ADV 100/50 PO (17:02)
[2018-08-17] MEDS ORDERED: BASAG SOL SQ (17:05)
[2018-08-17] MEDS ORDERED: DULCOLAX10 M1 R (17:10)
[2018-08-17] MEDS ORDERED: CYMBALTA20 M1 PO (17:11)
[2018-08-17] MEDS ORDERED: LOSARTAN POTASS50 M1 PO (17:14)
[2018-08-17] MEDS ORDERED: LASIX40 MG PO (17:14)
[2018-08-17] MEDS ORDERED: MILK OF MA2400 MG/10 PO (17:17)
[2018-08-17] MEDS ORDERED: MIRTAZAPINE15 M2 PO (17:18)
[2018-08-17] MEDS ORDERED: NEPHRO-VITE TA0.8 MG PO (17:19)
[2018-08-17] MEDS ORDERED: NOVOLOG100 UNIT/1 SQ (17:24)
[2018-08-17] MEDS ORDERED: NYSTATIN1 EAC3 MC (17:25)
[2018-08-17 20:00] VITALS: BP 158/70; BP 174/77
--- NOTE | 2018-08-17 21:00 | NUR ---
AT THIS TIME. CRITICAL PTT RECIEVED AT 99.3. HEPARIN BEING HELD FOR 1 HOUR AND REDUCED FROM 18 UNITS/KG/HR TO 15 UNITS/KG/HR, VERIFIED WITH PRADEEP LUGO RN
--- NOTE | 2018-08-17 21:09 | NUR ---
DR. ADAMSON NOTIFIED OF PTT AND INTERVENTION
--- NOTE | 2018-08-17 21:11 | NUR ---
DR. ADAMSON STATED OK TO CANCEL 0530 PTT DUE TO PTT BEING DRAW AT 0400
--- NOTE | 2018-08-17 22:08 | NUR ---
HEPARIN RESTARTED AT THIS TIME AT 15UNITS/KG/HR
[2018-08-18] VITALS: BP 142/84
[2018-08-18 04:17] LABS: BASO % 0.5 % (0.0-1.0); EOS # 0.3 10*3/uL (0.0-0.4); HEMATOCRIT 39.9 % (37.0-47.0); HEMOGLOBIN 12.5 g/dl (12.0-16.0); LYMPH # 2.2 10*3/uL (1.3-4.4); LYMPH % 35.8 % (27.0-41.0); MEAN CORPUSCULAR HGB 29.1 pg (27.0-31.0); MEAN CORPUSCULAR HGB CONC 31.3 g/dl (33.0-37.0); MEAN PLATELET VOLUME 10.8 fl (9.6-12.3); MONO # 0.9 10*3/uL (0.1-1.0); MONO % 13.7 % (3.0-9.0); NEUT # 2.8 10*3/uL (2.3-7.9); NEUT % 44.7 % (47.0-73.0); PLATELET COUNT AUTOMATED 241 10*3/uL (130-400); RED BLOOD COUNT 4.29 10*6/uL (4.10-5.10); RED CELL DISTRI WIDTH 13.9 % (0-14.5); WHITE BLOOD COUNT 6.3 10*3/uL (4.8-10.8)
[2018-08-18 04:31] LABS: ALBUMIN 2.4 gm/dl (3.1-4.5); CREATININE 1.97 mg/dL (0.55-1.02); PHOSPHOROUS 3.4 mg/dL (2.5-4.9); POTASSIUM 3.6 mmol/L (3.5-5.1); TOTAL PROTEIN 6.4 gm/dL (6.4-8.2)
[2018-08-18 08:00] VITALS: BP 150/88; BP 158/70
[2018-08-18 12:00] VITALS: BP 154/56
[2018-08-18 16:00] VITALS: BP 147/54
--- NOTE | 2018-08-18 19:25 | NUR ---
BEDSIDE REPORT OBTAINED FROM OSCAR-RN. PATIENT IS DROWSY AND CONFUSED, ALERT TO SELF. PATIENT VOICED NO COMPLAINTS AT THIS TIME, NO S&S OF DISTRESS NOTED. RESP ARE ERND ON ROOM AIR. BED IS LOCKED IN LOWEST POSITION, ALARM MAINTAINED. CALL LIGHT LEFT WITHIN REACH.
[2018-08-18 20:00] VITALS: BP 148/52
--- NOTE | 2018-08-18 22:29 | NUR ---
PATIENT IS YELLING OUT AT THIS TIME. STATES THAT HER ARM HURTS, UNABLE TO DETERMINE PAIN LEVEL, AND THAT SHE IS TIRED. MEDICATED WITH NORCO AND RESTORIL. GEE CRAWFORD
--- NOTE | 2018-08-18 23:29 | NUR ---
PRN RESTORIL AND NORCO ARE EFFECTIVE FOR SLEEP/PAIN. PATIENT IS NO LONGER YELLING OUT AND APPEARS TO BE ASLEEP, EYES CLOSED. RESP ARE ERND ON ROOM AIR. CALL LIGHT LEFT WITHIN REACH.
[2018-08-19] VITALS: BP 135/49
--- NOTE | 2018-08-19 02:00 | NUR ---
PATIENT ASLEEP. CALL LIGHT LEFT WITHIN REACH.
[2018-08-19 06:41] LABS: BASO % 0.2 % (0.0-1.0); EOS # 0.2 10*3/uL (0.0-0.4); EOS % 4.3 % (1.0-4.0); HEMATOCRIT 39.7 % (37.0-47.0); HEMOGLOBIN 12.2 g/dl (12.0-16.0); LYMPH # 1.7 10*3/uL (1.3-4.4); LYMPH % 32.3 % (27.0-41.0); MEAN CORPUSCULAR HGB 29.2 pg (27.0-31.0); MEAN CORPUSCULAR HGB CONC 30.7 g/dl (33.0-37.0); MEAN PLATELET VOLUME 11.1 fl (9.6-12.3); MONO # 0.8 10*3/uL (0.1-1.0); MONO % 14.8 % (3.0-9.0); NEUT # 2.6 10*3/uL (2.3-7.9); PLATELET COUNT AUTOMATED 241 10*3/uL (130-400); RED BLOOD COUNT 4.18 10*6/uL (4.10-5.10); RED CELL DISTRI WIDTH 13.9 % (0-14.5); WHITE BLOOD COUNT 5.4 10*3/uL (4.8-10.8)
[2018-08-19 06:53] LABS: ACT PARTIAL THROMBO TIME 79.5 SECONDS (20.8-31.5); ALBUMIN 2.4 gm/dl (3.1-4.5); CREATININE 1.84 mg/dL (0.55-1.02); INTERNATIONAL NORM RATIO 1.1 (2.0-3.5); POTASSIUM 3.8 mmol/L (3.5-5.1); TOTAL PROTEIN 6.5 gm/dL (6.4-8.2)
[2018-08-19 08:00] VITALS: BP 180/68
--- NOTE | 2018-08-19 10:08 | NUR ---
DR. DE LOS SANTOS WAS NOTIFIED OF PTS HR IN THE 40S. HE INSTRUCTED TO CONTINUE TO MONITOR AND HOLD TONIGHT'S DOSE OF LOPRESSOR.
--- NOTE | 2018-08-19 10:28 | NUR ---
PTS APTT WAS 79.5. NO CHANGES TO HEPARIN PER POLICY.
[2018-08-19 12:00] VITALS: BP 143/62
[2018-08-19 16:00] VITALS: BP 150/59
--- NOTE | 2018-08-19 16:15 | NUR ---
PHYSICAL THERAPY PT EVAL COMPLETED ON 08/19/18: FULL EVALUAITON TO FOLLOW. RECOMMEND PT WHILE HERE TO ADDRESS DECREASED STRENGTH, BALANCE AND ENDURANCE AND THUS DECREASED FUNCTIONAL MOBILITY. PT EVAL IS MODERATE COMPLEXITY BASED ON CHART REVIEW, TEST RESULTS AND EVALUATION: [id number]. D/C RECOMMENDATIONS ARE TO RETURN TO [facility] FOR SNF. THANK YOU FOR REFERRAL ALLIE TRACY PT
--- NOTE | 2018-08-19 19:30 | NUR ---
Patient resting quietly with no c/o discomfort. Respirations easy and regular. Vital signs stable. No overt distress. EATING/DRINKING AT PRESENT. LYNDA CARRERO
[2018-08-19 20:00] VITALS: BP 168/57
--- NOTE | 2018-08-19 20:06 | NUR ---
24 HR chart check completed.
[2018-08-20] VITALS: BP 184/65
--- NOTE | 2018-08-20 03:55 | NUR ---
PATIENT REMOVED BOTH IVS ACCIDENTLY (CONFUSED). SPOKE WITH DR. GONZALEZ AFTER SEVERAL FAILED ATTEMPTS TO ESTABLISH NEW IV ACCESS. HE STATES TO PASS ALONG TO DAY TEAM FOR MID-LINE PLACEMENT. STATES PATIENT IS OKAY TO BE OFF HEPARIN UNTIL IV ACCESS IS ESTABLISHED.
[2018-08-20 04:19] VITALS: BP 145/98
[2018-08-20 06:26] LABS: BASO % 0.2 % (0.0-1.0); EOS # 0.2 10*3/uL (0.0-0.4); EOS % 2.7 % (1.0-4.0); HEMATOCRIT 37.5 % (37.0-47.0); HEMOGLOBIN 12.1 g/dl (12.0-16.0); LYMPH # 1.9 10*3/uL (1.3-4.4); LYMPH % 22.1 % (27.0-41.0); MEAN CORPUSCULAR HGB 29.2 pg (27.0-31.0); MEAN CORPUSCULAR HGB CONC 32.3 g/dl (33.0-37.0); MEAN PLATELET VOLUME 10.4 fl (9.6-12.3); MONO % 11.6 % (3.0-9.0); NEUT # 5.5 10*3/uL (2.3-7.9); NEUT % 63.1 % (47.0-73.0); PLATELET COUNT AUTOMATED 241 10*3/uL (130-400); RED BLOOD COUNT 4.15 10*6/uL (4.10-5.10); RED CELL DISTRI WIDTH 13.6 % (0-14.5); WHITE BLOOD COUNT 8.8 10*3/uL (4.8-10.8)
[2018-08-20 06:28] LABS: MEAN CELL VOLUME 90.4 fl (81.0-99.0)
[2018-08-20 06:32] LABS: ACT PARTIAL THROMBO TIME 29.2 SECONDS (20.8-31.5); INTERNATIONAL NORM RATIO 1.5 (2.0-3.5)
[2018-08-20 06:40] LABS: ALBUMIN 2.5 gm/dl (3.1-4.5); CREATININE 1.7 mg/dL (0.55-1.02); POTASSIUM 3.3 mmol/L (3.5-5.1); TOTAL PROTEIN 6.6 gm/dL (6.4-8.2)
--- NOTE | 2018-08-20 08:05 | NUR ---
NOTIFIED GHAZALA ANTHONY CNP, OF PT NOT HAVING IV ACCESS.
--- NOTE | 2018-08-20 09:30 | NUR ---
IV started SHEILA with #24 protective cath after 1 attempts. Site prepped with Chloroprep. Sterile dressing applied. Patient tolerated procedure well. IV infusing at 80 cc/hr.HEPARIN INFUSING @ ADELE MURGUIA
--- NOTE | 2018-08-20 09:55 | NUR ---
IV started left forearm with #22 protective cath after 1 attempts. Site prepped with Chloroprep. PER VIKKI ALMONTE RN. Sterile dressing applied. Patient tolerated procedure well. IV infusing at HEPARIN INFUSING @ 10.2 cc/hr. ADELE UMRGUIA
--- NOTE | 2018-08-20 11:00 | NUR ---
Patient declining occupational therapy evaluation this am secondary to increased fatigue. Will check back for OT evaluation. Brianna Rowe OTR/L
--- NOTE | 2018-08-20 11:14 | NUR ---
PT IS CURRENTLY AT [facility] AND WILL REQUIRE A PRECERT TO RETURN. WILL CONTINUE TO FOLLOW.
[2018-08-20 12:00] VITALS: BP 149/57
--- NOTE | 2018-08-20 13:25 | NUR ---
PHYSICAL THERAPY Patient has been approched several times this date for therapy visit and was either eating or sleeping each attempt and not seen for treatment. Will continue per POC as able. Carlitos Canchola, RELAY REPAIRER
--- NOTE | 2018-08-20 13:41 | NUR ---
Clinical Updates faxed to [facility] Attn: Dipti.
--- NOTE | 2018-08-20 15:12 | NUR ---
FLUIDS D/C'D PER GHAZALA ANTHONY'S ORDER.
[2018-08-20 16:00] VITALS: BP 146/87
--- NOTE | 2018-08-20 17:07 | NUR ---
NORCO 5/325 MG GIVEN FOR C/O RIGHT UPPER ARM/SHOULDER PAIN,0/10.
--- NOTE | 2018-08-20 17:51 | NUR ---
[facility] PROVIDED D/T INCONTINENT OF URINE. REPOSITIONED FOR COMFORT. PT TOLERATED WELL. VOICES NO NEEDS AT THIS TIME.CALL LIGHT IN REACH.
--- NOTE | 2018-08-20 18:36 | NUR ---
RATE INCREASED TO 14.2 ML/HR/20.9 UNITS/KG/HR, APTT 45.6. VERIFIED BY ASH EPPERSON RN. APTT ORDERED PER PROTOCOL FOR 0030, 08/21/18.
[2018-08-20 20:00] VITALS: BP 130/78
[2018-08-21] VITALS: BP 140/88
--- NOTE | 2018-08-21 01:29 | NUR ---
ATTEMPTED TO CALL DR WILKES TO INFORM THAT LAB CALLED ABOUT PATIENTS APTT THAT IT WAS NOT CLOTTING. NO ANSWER AT THIS TIME.
--- NOTE | 2018-08-21 02:35 | NUR ---
HEPARIN GTT ON HOLD AT THIS TIME
--- NOTE | 2018-08-21 02:37 | NUR ---
NOTIFIED DR WILKES OF PATIENTS REPEAT APTT STILL SHOWING NO COAGULATION. ORDERS TO STOP THE HEPARIN GTT FOR 10-15 MINUTES AND LAB WILL REDRAW
[2018-08-21 03:20] LABS: INTERNATIONAL NORM RATIO 3.3 (2.0-3.5)
--- NOTE | 2018-08-21 04:42 | NUR ---
PER DR WILKES, HOLD THE HEPARIN GTT FOR ONE HOUR AND RECHECK APTT. IF LAB IS STILL READING NO COAGULATION, HOLD FOR ANOTHER 1 HOUR AND RECHECK APTT AGAIN. CONTINUE TO DO SO TILL WE GET A READING.
--- NOTE | 2018-08-21 06:18 | NUR ---
NOTIFIED DR WILKES OF PATIENTS APTT >250. ORDERS TO RESTART THE GTT AND DECREASE THE UNITS/KG/HR BY 3.
--- NOTE | 2018-08-21 06:33 | NUR ---
HEP GTT RESTARTED PER DR WILKES. VERIFIED BY 2ND RN.
--- NOTE | 2018-08-21 06:35 | NUR ---
DR LINCOLN CALLED TO HOLD THE HEPARIN GTT FOR 1 HOUR THEN DECREASE RATE 3U/KG/HR AND RESTART GTT.
--- NOTE | 2018-08-21 06:38 | NUR ---
DR WILKES CALLED TO HOLD HEPARIN GTT FOR 1 HOUR THEN RESTART AT THE 3U/KG/HR LESS. RESTART AT 0730
[2018-08-21 08:00] VITALS: BP 140/86
[2018-08-21 12:00] VITALS: BP 160/86
[2018-08-21 16:00] VITALS: BP 151/67
[2018-08-21 20:00] VITALS: BP 164/47
[2018-08-22] VITALS: BP 130/70
--- NOTE | 2018-08-22 01:55 | NUR ---
24 HR chart check completed.
--- NOTE | 2018-08-22 07:05 | NUR ---
PATIENT ASLEEP DURING BEDSIDE SHIFT REPORT.
[2018-08-22 07:07] LABS: INTERNATIONAL NORM RATIO 4.6 (2.0-3.5)
--- NOTE | 2018-08-22 07:07 | NUR ---
DR. WILKES NOTIFIED OF PROTIME OF 50.7 AND INR OF 4.6
[2018-08-22 07:11] LABS: CREATININE 1.65 mg/dL (0.55-1.02); POTASSIUM 4.2 mmol/L (3.5-5.1)
[2018-08-22 08:16] VITALS: BP 144/80
--- NOTE | 2018-08-22 08:34 | NUR ---
MEDICATED WITH PRN PO NORCO FOR C/O LEFT LOWER LEG PAIN.
--- NOTE | 2018-08-22 09:15 | NUR ---
PHYSICAL THERAPY Patient presented to therapy in supine with report of pain in the bilateral knees. Patient agrees to therapy session. Patient was identified by name and . Patient performed supine to sitting at EOB transfer with MIN X 1 with verbal cues for pushing off L elbow and pushing off with R hand on railing. Patient required verbal cues for bringing her LEs down over bed also. Patient performed STS transfer to W/W with MIN A X 1 with verbal cues for locking knees, upright posture, and safe turning. Patient performed SPT to bedside chair with MIN A X 1 WITH VERBAL CUES FOR PUTTING HANDS BACK ON ARMRESTS OF CHAIR. Patient then sat in bedside chair and performed seated bilateral LE ther ex in all planes of movement for strengthening the LEs in order to improve patient's functional mobility. Patient was left in seated position with tray table with breakfast in front of patient, call light within reach, and chair alarm activated. Patient was 1:1 with this ORACLE SOFTWARE ENGINEER for 25 minutes total. Patient is recommended to SNF. NATHALIE WILSON ORACLE SOFTWARE ENGINEER
--- NOTE | 2018-08-22 09:39 | NUR ---
PT IS SHORT TERM AT [facility] AND WILL REQUIRE A PRECERT TO RETURN. CRUSHING MACHINE OPERATOR WILL CONTINUE TO FOLLOW.
--- NOTE | 2018-08-22 09:40 | NUR ---
PRN PO NORCO EFFECTIVE, PER PATIENT.
[2018-08-22 12:00] VITALS: BP 134/58
--- NOTE | 2018-08-22 12:11 | NUR ---
Patient was evaluated by occupational therapy this date. She was sitting up in the chair and identified herself by her name and date of . Nayla was lethargic and orientated to person and place. She is slow to respond and requires increased time to complete simple ADL tasks. Nayla reports decreased vision secondary to macular degeneration. Nayla required max assist with lower body dressing this date. She is dependent with toilet hygiene. Nayla fatigues quickly with minimal activity. She was left up in the chair with call light within reach and chair alarm on. She requires increased assist with ADL's and functional transfers secondary to decreased balance, decreased endurance, decreased strength, and decreased cognition. Continued occupational therapy in a SNF is recommended to improve her ADL independence. Brianna Rowe OTR/L
--- NOTE | 2018-08-22 12:59 | NUR ---
patient came from [facility] short term and requires a precert to return. Contacted facility, faxed clinicals and PT/OT evals & notes, asked to start precert for patient to return. Waiting for auth.
[2018-08-22 16:00] VITALS: BP 160/62
[2018-08-22 20:00] VITALS: BP 147/58
--- NOTE | 2018-08-22 22:25 | NUR ---
PATIENT MEDICATED WITH NORCO PER PRN ORDER FOR C/O NECK PAIN. SEE EMAR. REINFORCED USE OF CALL LIGHT.
[2018-08-23] VITALS: BP 160/55
--- NOTE | 2018-08-23 01:15 | NUR ---
PATIENT RESTING QUIETLY. NO FURTHER C/O VOICED.
--- NOTE | 2018-08-23 03:04 | NUR ---
24 HR chart check completed.
[2018-08-23 06:52] LABS: INTERNATIONAL NORM RATIO 4.1 (2.0-3.5)
[2018-08-23 07:19] VITALS: BP 140/62
--- NOTE | 2018-08-23 07:25 | NUR ---
MEDICATED WITH PRN PO TYLENOL FOR C/O NECK ACHING.
--- NOTE | 2018-08-23 08:45 | NUR ---
OT NOTE Pt was seen this A.M. 1:1 for 20 minute OT session. Upon arrival pt was supine in bed, pt identified by name and on wristband. Pt had complaints of R shoulder pain however did not rate on 0-10 pain scale. Pt transferred supine to sit EOB with modA X 2 and constant verbal prompts for participation and attention to task. While sitting EOB requested for pt to fix her socks and she required maxA due to poor forward flexion and F/F- sitting balance. Also while sitting upright pt completed grooming task with Ej for UB and maxA for LB. Completed multiple sit to stand transfers from bed level to increase I in functional transfers. Pt was able to complete STS transfer with Ej X 2 and education for proper hand placement for increased I. Stand pivot completed to recliner with Ej x 2 and use of w/w for UE support, there she was left sitting upright with pillow in place to correct R lateral lean, call light in hand, tray table in place, and body alarm on for safety. Continue with rec D/C plan to SNF. CHERISE Schwartz/Zaynab
--- NOTE | 2018-08-23 08:45 | NUR ---
PRN PO TYLENOL EFFECTIVE, PER PATIENT.
--- NOTE | 2018-08-23 09:01 | NUR ---
PHYSICAL THERAPY Patient presented to therapy in supine with head of bed elevated. Patient is lethargic. Patient agrees to therapy session. Patient was identified by name and . Patient performed supine to sitting at EOB transfer with MOD X 2. Patient has R lateral lean while in sitting and required verbal and tactile cues to correct. Patient STS transfer with MIN A X 2 with verbal cues for pushing off bed with hands. Patient stood at W/W and reported she was unable to walk due to LE weakness. Patient sat back down on EOB. Patient then STS transfer with MIN A X 2 for 3 seperate attempts with standing tolerance of 30", 25". and 20" respectively with CGA X 2. Patient required verbal cues for locking knees. Patient then was transferred on 3 rd attempt to bedside chair and performed ther ex to the bilateral LEs in all planes of movement for strengthening in order to improve patient's functional mobility. Patient was left in seated position with call light within reach, chair alarm attached, and tray table with breakfast in front of patient. Patient was 1:1 with this PIPE JEEPER for 24 minutes total. NATHALIE CALDERA PIPE JEEPER
[2018-08-23 12:00] VITALS: BP 129/55
--- NOTE | 2018-08-23 12:10 | NUR ---
PT CAN BE DISCHARGED TO [facility] WHEN MEDICALLY STABLE.
--- NOTE | 2018-08-23 13:30 | NUR ---
OT NOTE Attempted to see pt this P.M. for second OT session and upon arrival pt was eating her lunch. Will check back at a later time/date. CHERISE Schwartz/Zaynab
--- NOTE | 2018-08-23 13:30 | NUR ---
PHYSICAL THERAPY Patient is eating lunch at this time. Will check back at a later time. NATHALIE WILSON CORE FILER
[2018-08-23 16:00] VITALS: BP 141/47
[2018-08-23 20:00] VITALS: BP 140/56
[2018-08-24] VITALS: BP 163/54
--- NOTE | 2018-08-24 07:44 | NUR ---
patient is ok to return to [facility] when medically stable for discharge.
[2018-08-24 08:00] VITALS: BP 168/60
[2018-08-24 08:01] VITALS: BP 136/78
[2018-08-24 08:29] LABS: INTERNATIONAL NORM RATIO 2.8 (2.0-3.5)
[2018-08-24 08:59] LABS: CREATININE 1.72 mg/dL (0.55-1.02); POTASSIUM 3.9 mmol/L (3.5-5.1)
--- NOTE | 2018-08-24 11:10 | NUR ---
OT NOTE Pt was seen this A.M. 1:1 for 20 minute OT session. Upon arrival pt was supine in bed, pt identified by name and . Pt had complaints of increased fatigue and generalized weakness. pt transferred supine to sit EOB with maxA X 2. Educated pt on use of bed rails and log roll to increase I and pt was unable to complete. While sitting EOB challenged pt's sitting balance needed for increased I and enhanced safety in LB dressing. Pt was able to maintain F/F+ sitting balance throughout. Completedf multiple sit to stand transfers from bed level with modA X 2 and use of w/w for UE support, pt was able to tolerate aprox 30 sec, 11 sec, and 60 seconds before sitting due to fatigue and fear of falling. Stand pivot completed to recliner with modA X 2 and use of w/w. There she was left sitting reclined with call light in hand, tray table in place, body alarm on for safety, and BUE elevated to decrease BUE edema. Extra time given throughout session due to slow rate of performance and being slow to respond. Continue with rec D/C plan to SNF. CHERISE Schwartz/Zaynab
--- NOTE | 2018-08-24 11:28 | NUR ---
PHYSICAL THERAPY Patient was in supine position in bed with head of bed elevated. Patient is lethargic. Patient has no complaints or concerns. Patient agrees to therapy session. Patient was identified by name and . Patient performed supine to sitting at EOB with MAX A X 2. Patient can transfer Supine to sitting at EOB for the first half of the transfer, then requires MAX A X 2 for the remainder of the transfer. Patient sat at EOB with CGA. Patient transferred STS to W/W x 4 seperate times with MOD A X 2 with verbal cues for pushing off of bed railing with R hand. Patient x 3 seperate attempts for standing tolerance at W/W for 30 sec. , 11 sec. , and 60 sec., respectively with CGA X 2. Patient ambulated to chair with W/W and CGA X 2 for 5' x 1 with verbal cues for upright posture, locking her knees, and safe turns. Patient transferred to bedside chair with MIN A X 2. Patient was left in sitting position with LEs raised, call light within reach, and chair alarm activated and attached. Patient declined the remainder of her breakfast saying she doesn't have an appetite. Patient was 1:1 with this ACTUARIAL INTERN for 24 minutes total. NATHALIE WILSON ACTUARIAL INTERN
[2018-08-24 12:00] VITALS: BP 148/54
--- NOTE | 2018-08-24 13:15 | NUR ---
OT NOTE Pt was seen this P.M. 1:1 for second OT session consisting of 15 minutes. Upon arrival pt was sitting upright in recliner, pt identified by name and . Pt completed sit to stand transfer from chair level with modA X 2 followed by functional mobility to the bedside commode with Ej and use of w/w with constant verbal prompts for following commands and attention to task. Pt then was left sitting upright in recliner with call light in hand, tray table in place, and body alarm on for safety. Continue with rec D/C plan to SNF. CHERISE Schwartz/Zaynab
[2018-08-24] MEDS ORDERED: COUMADIN3 M1 PO (13:46)
--- NOTE | 2018-08-24 14:01 | NUR ---
PHYSICAL THERAPY Patient presented to therapy in sitting position with no concerns or complaints. Patient agrees to therapy session. Patient was identified by name and . Patient performed STS transfer with MOD A X 2 with verbal cues for pushing off armrests with hands. Patient performed gait with W/W and CGA X 2 with constant verbal cues for locking knees, upright posture, and pushing down on walker handles with hands for 16' x 1 with chair follow by other therapist. Patient's knees will buckle without the verbal cues. Have chair behind patient at all times while ambulating. Patient was left in sitting position with call light within reach, chair alarm attached, and tray table with lunch in front of her. Patient was 1:1 with this FWS FACULTY ASSISTANT for 15 minutes total. Patient is recommended for SNF upon discharge. NATHALIE WILSON FWS FACULTY ASSISTANT
--- NOTE | 2018-08-24 14:17 | NUR ---
[facility] is [facility], transportation scheduled for 4PM, [place], correction warden Cindy notified.
--- NOTE | 2018-08-24 14:38 | NUR ---
PHYSICAL THERAPY CO-SIGN I approve of the Phyical Therapy notes written above. BRANNON ADAM PT
--- NOTE | 2018-08-24 16:38 | NUR ---
Discharge instructions reviewed with patient/family. Patient receptive and verbalizes understanding. Follow-up care arranged. Written instructions given to patient/family. Nurse to nurse report given to Leyda at [facility]. Patient was wheeled from unit in the care of ARIA Santos
--- NOTE | 2018-08-27 08:19 | NUR ---
OCCUPATIONAL THERAPY CO-SIGN I approve of the Occupational Therapy notes written above. ASHISH FLORES OTR/Zaynab
[2018-09-03] MEDS ORDERED: DORZOLAMIDE 2%10 ML OP (05:42)
[2018-10-21] MEDS ORDERED: B121000 MCG/2 IM (13:56)
[2018-10-21] MEDS ORDERED: LANTUS SOL100 UNIT/1 SQ (13:59)
[2018-10-21] MEDS ORDERED: KLOR-CON M2020 ME1 PO (14:04)
[2018-10-21] MEDS ORDERED: PROBIOTIC1 EAC1 PO (14:05)
[2018-10-21] MEDS ORDERED: ROBITUSSIN5 ML PO (14:08)
[2018-10-21] MEDS ORDERED: TYLENOL325 M3 PO (14:09)
== END 2018-08-24 16:47 | disposition other institution (70) | DRG 299 ==
LOC: ED 13:43 → EDHOLD 15:55 → 5E 15:55
PROVIDERS: Family Medicine; Internal Medicine; ADMIT Emergency Medicine
DX: I82.412 Acute embolism and thrombosis of left femoral vein (principal); E43 Unspecified severe protein-calorie malnutrition; N17.0 Acute kidney failure with tubular necrosis; N18.4 Chronic kidney disease, stage 4 (severe); I50.32 Chronic diastolic (congestive) heart failure; E87.1 Hypo-osmolality and hyponatremia; I13.0 Hypertensive heart and chronic kidney disease with heart failure and stage 1 through stage 4 chronic kidney disease, or unspecified chronic kidney disease; F02.81 Dementia in other diseases classified elsewhere, unspecified severity, with behavioral disturbance; F23 Brief psychotic disorder; M79.641 Pain in right hand; R80.9 Proteinuria, unspecified; R31.9 Hematuria, unspecified; R81 Glycosuria; R74.8 Abnormal levels of other serum enzymes; E78.5 Hyperlipidemia, unspecified; E11.22 Type 2 diabetes mellitus with diabetic chronic kidney disease; I25.10 Atherosclerotic heart disease of native coronary artery without angina pectoris; J45.909 Unspecified asthma, uncomplicated; H35.30 Unspecified macular degeneration; E53.8 Deficiency of other specified B group vitamins; R29.6 Repeated falls; M15.9 Polyosteoarthritis, unspecified; E03.9 Hypothyroidism, unspecified; E66.9 Obesity, unspecified; Z96.659 Presence of unspecified artificial knee joint; I87.2 Venous insufficiency (chronic) (peripheral); F32.9 Major depressive disorder, single episode, unspecified; E11.65 Type 2 diabetes mellitus with hyperglycemia; G30.9 Alzheimer's disease, unspecified; E86.0 Dehydration; R79.1 Abnormal coagulation profile; Z88.0 Allergy status to penicillin; Z88.1 Allergy status to other antibiotic agents; Z91.048 Other nonmedicinal substance allergy status; Z85.89 Personal history of malignant neoplasm of other organs and systems; Z95.1 Presence of aortocoronary bypass graft; Z90.49 Acquired absence of other specified parts of digestive tract; Z90.710 Acquired absence of both cervix and uterus; Z95.5 Presence of coronary angioplasty implant and graft; Z82.49 Family history of ischemic heart disease and other diseases of the circulatory system; Z80.51 Family history of malignant neoplasm of kidney; Z83.3 Family history of diabetes mellitus; Z82.3 Family history of stroke; Z79.899 Other long term (current) drug therapy; Z79.02 Long term (current) use of antithrombotics/antiplatelets; Z68.24 Body mass index [BMI] 24.0-24.9, adult

== ENCOUNTER 2018-09-03 01:54 | Inpatient (IN) | payer MEDICARE ==
[~2018-09-03] VITALS: Ht 167.6 cm; Wt 76.8 kg
--- NOTE | ~2018-09-03 | EKG ---
[place], [place] ELECTROCARDIOGRAM REPORT NAME: MARIA ISABEL FELICIANO UNIT #: [id number] ROOM: 521 DOCTOR: MAXIMINO DRAFT REPORT BIRTHDATE: [birth year] [facility] Test Date: 2018-09-03 Test Time: 07:53:58 Pat Name: MARIA ISABEL FELICIANO Department: Room: 521 Gender: F Fire Captain: Mag Patel : 1935 Requested By: JOSUE BELLA Order Number: [id number] Reading MD: Flavio Foss MD Measurements Intervals [place] Rate: 76 P: 14 ID: 182 QRS: -26 QRSD: 117 T: 232 QT: 424 QTc: 477 Interpretive Statements Sinus rhythm Ventricular trigeminy Nonspecific intraventricular conduction delay Inferior infarct, old Compared to earlier ECG this date No significant change Myocardial infarct finding still present Electronically Signed On 09-03-2018 14:58:54 PST by Flavio Foss MD CM:EKGRPT:ELECTROCARDIOGRAM REPORT [id number] JOSUE ANDERSON DRAFT REPORT JOSUE BELLA DO
--- NOTE | ~2018-09-03 | EKG ---
[place], [place] ELECTROCARDIOGRAM REPORT NAME: MARIA ISABEL FELICIANO UNIT #: [id number] ROOM: 521 DOCTOR: MAXIMINO DRAFT REPORT BIRTHDATE: [birth year] [facility] Test Date: 2018-09-03 Test Time: 02:01:20 Pat Name: MARIA ISABEL FELICIANO Department: Room: 521 Gender: F Salesperson [employer]: Grant Hopkins : 1935 Requested By: JOSUE BELLA Order Number: [id number] Reading MD: Flavio Foss MD Measurements Intervals [place] Rate: 66 P: 60 MI: 194 QRS: -20 QRSD: 115 T: 175 QT: 456 QTc: 478 Interpretive Statements Sinus rhythm Consider inferior infarct Compared to ECG 08/17/2018 14:15:58 Atrial premature complex(es) no longer present Left ventricular hypertrophy no longer present Early repolarization no longer present Myocardial infarct finding still present Electronically Signed On 09-03-2018 14:52:02 PST by Flavio Foss MD CM:EKGRPT:ELECTROCARDIOGRAM REPORT [id number] 1452 JOSUE ANDERSON DRAFT REPORT JOSUE BELLA DO
--- NOTE | ~2018-09-03 | EKG ---
[place], [place] ELECTROCARDIOGRAM REPORT NAME: MARIA ISABEL FELICIANO UNIT #: [id number] ROOM: 521 DOCTOR: MAXIIMNO DRAFT REPORT BIRTHDATE: [birth year] [facility] Test Date: 2018-09-03 Test Time: 04:54:03 Pat Name: MARIA ISABEL FELICIANO Department: Room: 521 Gender: F Rim Technician: Grant Hopkins : 1935 Requested By: JOSUE BELLA Order Number: [id number] Reading MD: Flavio Foss MD Measurements Intervals [place] Rate: 70 P: 85 RI: 195 QRS: -25 QRSD: 107 T: QT: 453 QTc: 489 Interpretive Statements Sinus rhythm Atrial premature complex and ventricular fusion beats Inferior infarct, old Lateral leads are also involved Compared to earlier ECG this date Myocardial infarct finding still present Electronically Signed On 09-03-2018 14:56:09 PST by Flavio Foss MD CM:EKGRPT:ELECTROCARDIOGRAM REPORT [id number] [id number] JOSUE ANDERSON DRAFT REPORT JOSUE BELLA DO
[~2018-09-03 01:54] MED LIST changes: +ADV 100/50 PO; +ARGINAID POWDE1 EACH PO; +BASAG SOL SQ; +COUMADIN3 M1 PO; +CYMBALTA20 M1 PO; +DULCOLAX10 M1 R; +LOSARTAN POTASS50 M1 PO; +MILK OF MA2400 MG/10 PO; +NEPHRO-VITE TA0.8 MG PO; +NOVOLOG100 UNIT/1 SQ; +NYSTATIN1 EAC3 T; -TIMOLOL MALEATE5 M5 OPH; +TIMOLOL MALEATE5 M5 OS
[2018-09-03 01:56] VITALS: BP 126/41
[2018-09-03 02:17] LABS: BASO % 0.3 % (0.0-1.0); EOS # 0.4 10*3/uL (0.0-0.4); EOS % 3.4 % (1.0-4.0); HEMATOCRIT 41.1 % (37.0-47.0); HEMOGLOBIN 13.8 g/dl (12.0-16.0); LYMPH # 3.4 10*3/uL (1.3-4.4); LYMPH % 33.2 % (27.0-41.0); MEAN CORPUSCULAR HGB 29.6 pg (27.0-31.0); MEAN CORPUSCULAR HGB CONC 33.6 g/dl (33.0-37.0); MEAN PLATELET VOLUME 10.6 fl (9.6-12.3); MONO # 0.9 10*3/uL (0.1-1.0); MONO % 9.1 % (3.0-9.0); NEUT # 5.6 10*3/uL (2.3-7.9); NEUT % 53.7 % (47.0-73.0); PLATELET COUNT AUTOMATED 261 10*3/uL (130-400); RED BLOOD COUNT 4.67 10*6/uL (4.10-5.10); RED CELL DISTRI WIDTH 13.4 % (0-14.5); WHITE BLOOD COUNT 10.3 10*3/uL (4.8-10.8)
[2018-09-03] MEDS ORDERED: VITAMIN D50000 UNIT PO (02:17)
[2018-09-03 02:33] LABS: ACT PARTIAL THROMBO TIME 41.1 SECONDS (20.8-31.5)
[2018-09-03 02:36] LABS: ALBUMIN 2.7 gm/dl (3.1-4.5); CREATININE 2.37 mg/dL (0.55-1.02); POTASSIUM 3.2 mmol/L (3.5-5.1); TOTAL PROTEIN 7.2 gm/dL (6.4-8.2)
[2018-09-03 02:37] LABS: TROPONIN I 0.016 ng/ml (<0.045)
[2018-09-03 02:41] LABS: INTERNATIONAL NORM RATIO 4.8 (2.0-3.5)
[2018-09-03 05:20] VITALS: BP 151/63
[2018-09-03] MEDS ORDERED: DORZOLAMIDE 2%10 ML OS (05:42)
[2018-09-03] MEDS ORDERED: FLEET MINERAL133 ML PO (05:44)
[2018-09-03] MEDS ORDERED: IMODIUM A-D2 M2 PO (05:45)
[2018-09-03] MEDS ORDERED: NEPHRO-VITE TA0.8 MG PO (05:47)
[2018-09-03] MEDS ORDERED: NYSTATIN1 EAC3 MC (05:50)
[2018-09-03] MEDS ORDERED: PROBIOTIC1 EAC1 PO (05:51)
[2018-09-03 08:00] VITALS: BP 138/66
[2018-09-03 12:00] VITALS: BP 154/50
[2018-09-03 16:00] VITALS: BP 149/61
[2018-09-03 20:00] VITALS: BP 156/61
[2018-09-04] VITALS: BP 169/58
[2018-09-04 05:30] VITALS: BP 150/78
[2018-09-04 06:17] LABS: ALBUMIN 2.4 gm/dl (3.1-4.5); CREATININE 1.78 mg/dL (0.55-1.02); PHOSPHOROUS 2.9 mg/dL (2.5-4.9); POTASSIUM 3.6 mmol/L (3.5-5.1); TOTAL PROTEIN 6.3 gm/dL (6.4-8.2)
[2018-09-04 06:24] LABS: BASO % 0.3 % (0.0-1.0); EOS # 0.5 10*3/uL (0.0-0.4); HEMATOCRIT 38.8 % (37.0-47.0); HEMOGLOBIN 12.1 g/dl (12.0-16.0); LYMPH # 1.8 10*3/uL (1.3-4.4); LYMPH % 24.1 % (27.0-41.0); MEAN CORPUSCULAR HGB 28.5 pg (27.0-31.0); MEAN CORPUSCULAR HGB CONC 31.2 g/dl (33.0-37.0); MEAN PLATELET VOLUME 10.9 fl (9.6-12.3); MONO % 12.8 % (3.0-9.0); NEUT # 4.1 10*3/uL (2.3-7.9); NEUT % 55.4 % (47.0-73.0); PLATELET COUNT AUTOMATED 231 10*3/uL (130-400); RED BLOOD COUNT 4.25 10*6/uL (4.10-5.10); RED CELL DISTRI WIDTH 13.7 % (0-14.5); WHITE BLOOD COUNT 7.4 10*3/uL (4.8-10.8)
[2018-09-04 06:26] LABS: MEAN CELL VOLUME 91.3 fl (81.0-99.0)
[2018-09-04 07:27] LABS: ACT PARTIAL THROMBO TIME 57.4 SECONDS (20.8-31.5)
[2018-09-04 08:00] VITALS: BP 146/76
[2018-09-04 12:00] VITALS: BP 148/49
[2018-09-04 16:55] VITALS: BP 140/52
[2018-09-04 20:00] VITALS: BP 147/52
[2018-09-05] VITALS: BP 153/61
[2018-09-05 07:09] LABS: POTASSIUM 3.6 mmol/L (3.5-5.1)
[2018-09-05 07:10] LABS: CREATININE 1.69 mg/dL (0.55-1.02)
[2018-09-05 07:11] LABS: INTERNATIONAL NORM RATIO 2.3 (2.0-3.5)
[2018-09-05 08:00] VITALS: BP 152/60
[2018-09-05] MEDS ORDERED: COUMADIN2 M1 PO (10:20)
[2018-10-21] MEDS ORDERED: LANTUS SOL100 UNIT/1 SQ (13:59)
[2018-10-21] MEDS ORDERED: KLOR-CON M2020 ME1 PO (14:04)
[2018-10-21] MEDS ORDERED: PROBIOTIC1 EAC1 PO (14:05)
[2018-10-21] MEDS ORDERED: ROBITUSSIN5 ML PO (14:08)
[2018-10-21] MEDS ORDERED: TYLENOL325 M3 PO (14:09)
[2019-01-29] MEDS ORDERED: COUMADIN2 M1 PO (03:07)
[2019-01-29] MEDS ORDERED: CYMBALTA20 M1 PO (03:10)
[2019-01-29] MEDS ORDERED: ERGOCAL2500 UNIT PO ×2 (03:12→03:29)
[2019-01-29] MEDS ORDERED: LANTUS SOL100 UNIT/1 SQ (03:19)
[2019-01-29] MEDS ORDERED: CALMOSEPTINE OI71 GM T (03:26)
[2019-01-29] MEDS ORDERED: CLOPIDOGREL75 MG PO (03:27)
[2019-02-01] MEDS ORDERED: ERTAPENEM1 GM IV (16:06)
[2019-03-05] MEDS ORDERED: B121000 MCG/2 IM (13:56)
[2019-03-28] MEDS ORDERED: CIPROFLOXACIN500 M4 PO (22:54)
[2019-03-28] MEDS ORDERED: RIVASTIGMINE TAR6 M1 PO (23:11)
[2019-03-28] MEDS ORDERED: LASIX20 MG PO (23:14)
[2019-03-28] MEDS ORDERED: MILK OF MA400 MG/5 M PO (23:17)
[2019-04-04] MEDS ORDERED: FUROSEMIDE40 MG PO (14:12)
[2019-04-04] MEDS ORDERED: COUMADIN4 M2 PO (14:12)
[2019-04-04] MEDS ORDERED: FLUCONAZOLE100 MG PO (14:12)
== END 2018-09-05 14:47 | disposition other institution (70) | DRG 871 ==
LOC: ED 01:54 → EDHOLD 04:35 → 5E 04:35
PROVIDERS: Family Medicine; Internal Medicine; Student in an Organized Health Care Education/Training Program; ADMIT Internal Medicine
DX: A41.9 Sepsis, unspecified organism (principal); E43 Unspecified severe protein-calorie malnutrition; D68.32 Hemorrhagic disorder due to extrinsic circulating anticoagulants; N17.9 Acute kidney failure, unspecified; E87.2 Acidosis; N18.4 Chronic kidney disease, stage 4 (severe); J98.11 Atelectasis; I50.32 Chronic diastolic (congestive) heart failure; I82.509 Chronic embolism and thrombosis of unspecified deep veins of unspecified lower extremity; G30.0 Alzheimer's disease with early onset; F02.80 Dementia in other diseases classified elsewhere, unspecified severity, without behavioral disturbance, psychotic disturbance, mood disturbance, and anxiety; I25.10 Atherosclerotic heart disease of native coronary artery without angina pectoris; E11.22 Type 2 diabetes mellitus with diabetic chronic kidney disease; E78.5 Hyperlipidemia, unspecified; Z96.659 Presence of unspecified artificial knee joint; R65.20 Severe sepsis without septic shock; E87.6 Hypokalemia; E11.65 Type 2 diabetes mellitus with hyperglycemia; E53.8 Deficiency of other specified B group vitamins; R29.6 Repeated falls; M15.9 Polyosteoarthritis, unspecified; G30.9 Alzheimer's disease, unspecified; E66.9 Obesity, unspecified; Z68.24 Body mass index [BMI] 24.0-24.9, adult; E03.9 Hypothyroidism, unspecified; H35.30 Unspecified macular degeneration; Z87.81 Personal history of (healed) traumatic fracture; Z90.49 Acquired absence of other specified parts of digestive tract; Z88.0 Allergy status to penicillin; Z88.1 Allergy status to other antibiotic agents; Z95.1 Presence of aortocoronary bypass graft; Z90.710 Acquired absence of both cervix and uterus; Z95.5 Presence of coronary angioplasty implant and graft; Z80.51 Family history of malignant neoplasm of kidney; Z82.49 Family history of ischemic heart disease and other diseases of the circulatory system; Z83.3 Family history of diabetes mellitus; Z82.3 Family history of stroke; Z79.4 Long term (current) use of insulin

== ENCOUNTER 2018-10-26 12:41 | Inpatient (IN) | payer MEDICARE ==
[~2018-10-26] VITALS: Ht 170.1 cm; Wt 79.4 kg
--- NOTE | ~2018-10-26 | PR ---
[place], [place] PROGRESS NOTE NAME: MARIA ISABEL FELICIANO UNIT #: [id number] ROOM: 315 DOCTOR: COURTNEY WILD MD BIRTHDATE: [birth year] DOS: 10/28/2018 INTERVAL NOTE CHIEF COMPLAINT: "My breakfast was late." SUMMARY OF THE VISIT: The patient was interviewed in the dining area where she was eating her breakfast. She was fixated on the fact that it was late. The nurse's aides did report that yes indeed her tray was not sent on time from the kitchen and it had just arrived now. Nurses report that overall there does seem to be a slight improvement in her behavior, much less delusional, still fixated; however, on being depressed and wanting to , but able to engage and redirect more readily. MENTAL STATUS: She is alert and oriented to person, possibly place, not to time. Mood does still seem to be depressed, but improving. Affect still flat, blunted. There is a definite hint of irritability and there is still some mild delusions present. Memory does have gaps. PLAN: I will maintain her current psychotropic regimen. Continue to engage in individual and rocha milieu activity, returning then to the least restrictive environment when psychiatrically stable. COURTNEY WILD MD CM:PNTRANS 9 COURTNEY WILD MD 10/29/1810 interface
--- NOTE | ~2018-10-26 | PR ---
[place], [place] PROGRESS NOTE NAME: MARIA ISABEL FELICIANO UNIT #: [id number] ROOM: 315 DOCTOR: COURTNEY WILD MD BIRTHDATE: [birth year] DOS: 10/31/2018 CHIEF COMPLAINT: "Oh, I will take some more coffee if you have it." SUMMARY OF THE VISIT: The patient was interviewed in the dining area. She had her entire breakfast eaten and was sipping on her coffee. When asked if she wanted anything more to eat or drink, she did politely ask for more coffee. She was much more engaging and able to respond appropriately to me. Most of her responses continued to be rather short and simple. There was no agitation or aggression. There was no mood lability. Conversely, there was no sedation, somnolence, extrapyramidal symptoms or tardive dyskinesia. MENTAL STATUS: She remains alert and oriented to self, possibly place, not to time. Mood does seem to be trending towards euthymia. Affect is more appropriate. There is no annamarie or hypomania. No gross psychosis. Short-term memory continues to be problematic. PLAN: I will maintain her current psychotropic regimen, continue to engage in individual and rocha milieu activity, returning then to the least restrictive environment when psychiatrically stable. COURTNEY WILD MD CM:PNTRANS [phone] COURTNEY WILD MD 11/01/18 0148 interface
--- NOTE | ~2018-10-26 | WRIGHTHP ---
[place], [place] PATIENT HISTORY AND PHYSICAL EXAM NAME: [id number] UNIT #: [id number] ROOM: 315 DOCTOR: COURTNEY WILD MD BIRTHDATE: [birth year] DOS: 10/27/2018 INITIAL PSYCHIATRIC EVALUATION CHIEF COMPLAINT: "I am cold and I am hungry." HISTORY OF PRESENT ILLNESS: This is an 83-year-old white female, known to me from her stay at the [facility]. The patient had presented initially to the medical floor with a UTI and metabolic encephalopathy. While there, though she reported to the staff repeatedly that she just wanted to be left alone, so she could that she was so very unhappy. She was also very paranoid and having hallucinations that were rather bothersome. Nurses are noted to be poor sleep and appetite, anergia, anhedonia, hopeless, helpless feelings, crying spells, and inability to cope. Once medically cleared, she was transferred [facility] for further stabilization. PAST MEDICAL HISTORY: Remarkable for Alzheimer's dementia, asthma, coronary artery disease, chronic kidney disease stage 4, diastolic heart failure, DJD, diabetes, DVT, hypertension, falls, hyperlipidemia, macular degeneration, major depression, obesity, pubic ramus fracture, severe protein-calorie malnutrition, venous stasis dermatitis, vitamin B12 deficiency and warfarin-induced coagulopathy. SOCIAL HISTORY: She is a nonsmoker, does not use illicit drugs nor does she drink alcohol. ALLERGIES: She lists allergies to PENICILLIN, IODINE AND CEFEPIME. STRENGTHS: Good verbal skills. WEAKNESSES: Cognitive decline, severe chronic depression with hallucinations. Poor coping skills. MENTAL STATUS: The patient is alert and oriented to person, place, not necessarily time. Mood is overwhelmingly depressed. Affect is flat and blunted, constricted with some anxious overtones. There is a great deal of paranoia and belief that people are going to hurt her. She continues to voice suicidal thoughts. She does process slowly and short term memory is problematic. DIAGNOSIS: Major depression, recurrent with psychotic features and Alzheimer's dementia. PLAN: I have already started her on Remeron 15 mg at bedtime. I will now go ahead and add Risperdal 0.5 mg twice daily to combat the psychotic symptomatology. We will continue to engage her in individual and rocha milieu activity, returning then to the least restrictive environment when psychiatrically stable. [place], [place] PATIENT HISTORY AND PHYSICAL EXAM NAME: MARIA ISABEL FELICIANO UNIT #: [id number] ROOM: [facility] DOCTOR: COURTNEY WILD MD BIRTHDATE: [birth year] COURTNEY WILD MD CM:HISPHYS:PATIENT HISTORY AND PHYSICAL EXAMINATION [phone] COURTNEY WILD MD 10/27/18 1115 interface
--- NOTE | ~2018-10-26 | PR ---
[place], [place] PROGRESS NOTE NAME: MARIA ISABEL FELICIANO UNIT #: [id number] ROOM: 315 DOCTOR: COURTNEY WILD MD BIRTHDATE: [birth year] DOS: 10/29/2018 INTERVAL NOTE CHIEF COMPLAINT: "Good morning." SUMMARY OF THE VISIT: The patient was interviewed as she was sitting in the dining area. She had eaten her breakfast and was resting. She stopped and engaged readily in conversation with me, voicing no complaints, stating that she had breakfast and felt well. Nurses report that she continues to have episodes where she will yell out loudly and be very disruptive and continues to voice suicidal thoughts and continues to pray to the God takes her, in fact at one point, she did state to the staff, why is God taking so long to take my life. The patient is sleeping well and eating better. She is tolerating the current medication regimen well. MENTAL STATUS: She is alert and oriented to person, place, but not time. Mood does seem to be somewhat more euthymic, although there is still a significant depressive component with suicidal thoughts. There is still some mood lability. There are no auditory or visual hallucinations. Short-term memory continues to be problematic. PLAN: I will increase her Risperdal to 0.5 mg in the morning and 1 mg at night. Continue to engage in individual and rocha milieu activity, returning then to the least restrictive environment when psychiatrically stable. COURTNEY WILD MD CM:PNTRANS 6 COURTNEY WILD MD 10/30/18 0117 interface
--- NOTE | ~2018-10-26 | DS ---
[place], [place] DISCHARGE SUMMARY NAME: MARIA ISABEL FELICIANO [facility] #: [id number] UNIT #: [id number] ROOM: 315 DOCTOR: COURTNEY WILD MD BIRTHDATE: [birth year] DOS: 11/01/2018 CHIEF COMPLAINT: "I am cold and I am hungry." HISTORY OF PRESENT ILLNESS: This is an 83-year-old white female known to me from her stay at the [facility] as well as a previous admission here. The patient presented initially to the medical floor with the UTI and metabolic encephalopathy. While there, though she had repeatedly told to staff that she wanted to be left alone, so that she could . She reports that she is very unhappy. She is also very paranoid and having significant hallucinations and delusional system. The patient reported poor sleep and appetite, anergia, anhedonia, hopeless, helpless feelings, crying spells, and inability to cope. When she was medically cleared and these symptoms persisted, it was felt that an inpatient stabilization on the [facility] was warranted. SUMMARY OF HOSPITAL COURSE: The patient was admitted to the unit where she was found to be very depressed as well as very paranoid and delusional. She was started simultaneously on Remeron 15 mg at bedtime and Risperdal 0.5 mg twice daily. This did seem to very dramatically improve her sleep and appetite. She continued to have significant paranoia, however. So the Risperdal dose was increased to 0.5 mg in the morning and 1 mg at nighttime with excellent results. Sleep improved. Appetite improved. Her ADL maintenance also improved. She was able to engage in individual and rocha milieu activities well. The paranoia dissipated as did other delusions and hallucinations. She convincingly denied side effects from the medications. No tardive dyskinesia, extrapyramidal symptoms, sedation or somnolence was noted. She had improved sufficiently to return then back to the [facility]. MENTAL STATUS AT DISCHARGE: She is alert and oriented to person, place, but not time. Mood does seem to be significantly trending towards euthymia. Affect is more appropriate. Speech rate and pattern is within normal limits. There are no auditory or visual hallucinations, delusions or paranoia. No annamarie or hypomania. Short-term memory is poor. DIAGNOSES: Major depression, recurrent with psychotic features and Alzheimer's dementia. DISPOSITION: All of her prescriptions have been printed and will be sent with her. She will return to the [facility]. I will be the treating psychiatrist of record. At the time of discharge, there were no acute medical problems and psychiatrically, she was stabilized. [place], [place] DISCHARGE SUMMARY NAME: MARIA ISABEL FELICIANO UNIT #: [id number] ROOM: [facility] DOCTOR: COURTNEY WILD MD BIRTHDATE: [birth year] COURTNEY WILD MD CM:DISCHENRIQUE [phone] COURTNEY WILD MD 11/01/18 1521 interface
--- NOTE | ~2018-10-26 | PR ---
[place], [place] PROGRESS NOTE NAME: MARIA ISABEL FELICIANO UNIT #: [id number] ROOM: 315 DOCTOR: COURTNEY WILD MD BIRTHDATE: [birth year] DOS: 10/30/2018 CHIEF COMPLAINT: "Oh good morning, I had breakfast, thank you. I am warm this morning." SUMMARY OF THE VISIT: The patient was interviewed as she had already eaten her breakfast. She was bright and alert. She made good eye contact and engaged in conversation with me readily. She was even spontaneous with some of her questions and asked me how I was doing. She seemed much calmer and much more in the here and now. Nurses report that yesterday was a good day and that overall her yelling out and her behaviors have dissipated. She does outwardly seem to be tolerating the medicine well. I did not see the presence of any sedation, somnolence, extrapyramidal symptoms or tardive dyskinesia. MENTAL STATUS: She is alert and oriented to person, most likely place, but not time. Mood does seem to be trending towards euthymia. Affect is much more appropriate. There is no annamarie, hypomania or psychosis. Short term memory continues to be problematic. PLAN: I will maintain her current psychotropic regimen, continue to engage in individual and rocha milieu activity, returning then to the least restrictive environment when psychiatrically stable. COURTNEY WILD MD CM:PNTRANS [phone] COURTNEY WILD MD 10/31/18 0127 interface
[~2018-10-26 12:41] MED LIST changes: +COUMADIN2 M1 PO; +DORZOLAMIDE 2%10 ML OS; +FLEET MINERAL133 ML PO; +IMODIUM A-D2 M2 PO; +NYSTATIN1 EAC3 MC; +PROBIOTIC1 EAC1 PO; +ROBITUSSIN5 ML PO; +TYLENOL325 M3 PO
--- NOTE | 2018-10-26 14:20 | NUR ---
MARIA ISABEL FELICIANO Soha a 83 year old F admitted via wheel chair from the OTHER (5TH FLOOR) as a voluntary admission. Arrived on unit at 1420. ALLERGIES: PCN, IODINE, CEFEPIME. Vital signs are: 97.9-63-18 129/84 SPO2 96%RA. The client'S GUARDIAN VERBALLY CONSENTED TO the following forms with stated understanding: Authorization For The Release of Medical Information, Clothing List, Consent to Voluntary Admission and Hospitalization, Consent and Release Forms/Receipt of Rights, Acknowledgement of Advance Directive Information, Behavioral Health Consent Form, and Informed Consent of Medications. Admitted under the services of Dr. TORRI HELLER,[facility]. A search was conducted and hazardous articles were removed. Client was oriented to the unit. JOCELIN LLAMAS PT IS ALERT, ORIENTED TO PERSON, PLACE, APPROXIMATE TO TIME. PT MOOD IS IRRITABLE, AFFECT IS FLAT. PT DENIES SI, INTENT, OR PLAN. STATES "NOW WHY WOULD I DO SOMETHING LIKE THAT. I'M NOT CRAZY, YOU THINK I AM CRAZY. I AM GOING TO AT [facility]. I WANT TO GO TO [facility]." PT REDIRECTED AND REASSURED OF SAFETY. PT PROVIDED WITH EMOTIONAL SUPPORT. AFTER INITIAL ASSESSMENT COMPLETED, PT WAS ASSISTED TO GROUP THERAPY. PT STATES "OK, THERAPY USUALLY HELPS ME". PT IN DAY ROOM WITH PEERS AT THIS TIME.
[2018-10-26 14:32] VITALS: BP 129/84
[2018-10-26 14:43] VITALS: BP 129/84
--- NOTE | 2018-10-26 15:40 | NUR ---
CALL PLACED TO HOSPITALIST CELL # , DR. KEY ANSWERED, MADE AWARE OF NEW CONSULT FOR MEDICAL MANAGEMENT
--- NOTE | 2018-10-26 16:06 | NUR ---
Spoke with Dipti at [facility]. Pt. is LTC at facility and will return at discharge. Does not require Precert prior to return.
--- NOTE | 2018-10-26 18:16 | NUR ---
PSA completed with collateral information from son-Carlos.
[2018-10-26 19:54] VITALS: BP 133/64
--- NOTE | 2018-10-26 23:00 | NUR ---
PATIENT CONFUSED WITH ST/LT MEMORY DEFICITS. ALERT TO PERSON AND PLACE. PATIENT MEDICATION COMPLIANT WITHOUT ANY DIFFICULTY. NO HALLUCINATIONS NOTED AT THIS TIME. NO SI/HI NOTED AT THIS TIME. PROVIDED REORIENTATION NEEDED. Q 15 MINUTE SAFETY CHECKS CONTINUED AND MAINTAINED. SEE [facility] FLOWSHEET FOR FURTHER DOCUMENTATION.
--- NOTE | 2018-10-27 00:38 | NUR ---
24 HR chart check completed.
--- NOTE | 2018-10-27 05:14 | NUR ---
Patient slept approx. 6 hours throughout shift.
[2018-10-27 07:04] LABS: INTERNATIONAL NORM RATIO 1.2 (2.0-3.5)
[2018-10-27 07:12] LABS: ALBUMIN 2.7 gm/dl (3.1-4.5); CREATININE 1.65 mg/dL (0.55-1.02)
[2018-10-27 07:18] LABS: THYROID STIM HORMONE (HS) 3.46 uIU/ml (0.358-4.75)
[2018-10-27 08:00] VITALS: BP 153/67
--- NOTE | 2018-10-27 12:15 | NUR ---
AM GROUP/MUSIC/LEISURE PT ATTENDED GROUP BUT DID NOT PARTICIPATE DUE TO SLEEPING IN RECLINER ENTIRE GROUP. PT DID NOT WAKE. PT WILL CONTINUE TO ATTEND AND PARTICIPATE IN FUTURE GROUP SESSIONS.
--- NOTE | 2018-10-27 12:24 | NUR ---
PATIENT COMPLAINING OF RIGHT HIP PAIN, RATING 10/10. [facility] PRN TYLENOL 650MG PO GIVEN AT THIS TIME.
--- NOTE | 2018-10-27 13:27 | NUR ---
PATIENT RESTING QUIETLY IN ANIRUDH CHAIR IN DINING ROOM WITH EYES CLOSED, NO FURTHER COMPLAINS OF PAIN OR SIGNS OR SYMPTOMS OF PAIN OBSERVED. PRN TYLENOL EFFECTIVE.
--- NOTE | 2018-10-27 17:56 | NUR ---
PATIENT IS ALERT TO PERSON AND TIME WITH CONFUSION; ABLE TO VOICE NEEDS. MOOD IS STABLE; CAN BE DEMENDING. DENIES ANY HALLUCINATIONS, DELUSIONS, HI/SI OR PAIN. CAN BE DEMANDING AND REPEATIVE AT TIMES. INTERACTIVE WITH STAFF. 1-2 PERSON ASSIST WITH ACTIVIES OF DAILY LIVING, INCONTINENT OF BLADDER, CONTINENT OF BOWEL. MEAL INTAKES VARIES. PARTICIPATED IN GROUP SESSION THIS MORNING. UP IN ANIRUDH CHAIR FOR COMFORT. MEDICATION COMPLAINT WITH EDUCATION PROVIDED. Q 15 MINUTE SAFETY CHECKS MAINTAINED. CONTINUE TO MONITOR FOR HALLUCINATIONS AND MODD CHANGES; PROVIDE ONE ON ONE AND REDIRECTION NEEDED.
--- NOTE | 2018-10-27 18:05 | NUR ---
Shift chart check completed.
[2018-10-27 20:00] VITALS: BP 130/68
--- NOTE | 2018-10-28 00:11 | NUR ---
PT IN LOUNGE EATING SNACK AND WATCHING T.V EARLIER IN SHIFT. WHEN TALKING WITH PATIENT SHE STATED "THEY THINK I WENT CRAZY AGAIN DIDN'T THEY?!!, WELL I WILL JUST QUIT TALKING TO THEM" PT WOULDN'T STATE WHO "THEY WERE" ATTEMPTED TO REDIRECT THAT SHE IS NOT CRAZY AND THAT SSHE JUST NEEDED A MEDICATION ADJUSTMENT. PT CONTINUED TO BE ANXIOUS ABOUT WHY SHE WAS HERE. PT HAS DIFFICULTY WITH RECALLING SPECIFICS TO HER ADMISSION. AT THIS TIME PT IS RESTING IN BED QUIETLY WITH EYES CLOSED. WILL CONTINUE 15 MIN MONITORING CHECKS
--- NOTE | 2018-10-28 05:52 | NUR ---
PT SLEPT ALL NIGHT WITH NO AWAKENINGS, PLEASANT COOPERATIVE. CHART CHECKS COMPLETED.
[2018-10-28 07:43] VITALS: BP 136/79
--- NOTE | 2018-10-28 14:30 | NUR ---
P: YELLING OUT, BEING DISRUPTIVE IN THE DINING ROOM WITH OTHER PATIENTS, NAME CALLING OF STAFF, HALLUCINATING, TALKING TO SELF; STATING: "YOU ARE THE DEVIL, JUST TAKE ME NOW, GET IT OVER WITH" PARANOID THOUGHTS EXPRESS. I: REMOVED FROM DINING ROOM TO QUIET ROOM TO DECREASE STIMULI, ONE ON ONE AND REDIRECTION PROVIDED, REORIENTED TO PLACE AND SITUATION. R: CHANGE OF ENVIRONMENT EFFECTIVE, PATIENT CONTINUE TO TALK TO SELF P: CONTINUE TO MONITOR FOR HALLUNICATIONS, PROIVDE ONE ON ONE, REDIRECTION, ORIENTATION TO PLACE AND TIME, CHANGE OF ENVIROMENT NEEDED. PATIENT IS ALERT TO PERSON AND PLACE, ABLE TO RECALL MONTH OF OCTOBER WITH CONFUSION; ABLE TO VOICE NEEDS. MOOD IS IRRITABLE/ANGRY, ANXIOUS AND DEMANDING AT TIMES. DENIES ANY HALLUCINATIONS, DELUSIONS, HI/SI OR PAIN. RESPONSE TO INTERNAL STIMULI. MEDICATION COMPLAINT WITH EDUCATION PROVIDED. Q 15 MINUTE SAFETY CHECKS MAINTAINED. 2 PERSON ASSIST WITH ACTIVITIES OF DAILY LIVING, INCONTINENT OF BOWEL AND BLADDER. SET UP FOR MEALS, INTAKE ARE GOOD WITH ADEQUATE FLUID. CONTINUE TO MONITOR FOR OUTBURST AND HALLUCINATIONS; PROVIDE ONE ON ONE, REDIRECTION, CHANGE OF ENVIRONMENT AND REORIENTATION NEEDED.
[2018-10-28 19:56] VITALS: BP 145/75
--- NOTE | 2018-10-28 23:15 | NUR ---
P-CONFUSION, PREOCCUPIED WITH MEDICATIONS. 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 PATIENT WITH NO HALLUCINATIONS OR DELUSIONS. PATIENT WITH NO SUICIDAL HOR HOMICIDAL IDEATIONS. PATIENT PREOCCUPIED WITH MEDICATIONS AT HS. I-REDIRECTION WITH 1:1 THERAPEUTIC INTERVENTIONS AND PRESENT REALITY ORIENTATION. EDUCATE AND ENCOURAGE MEDICATION COMPLIANCE. R-PRESENTING REALITY AND REDIRECTION WITH 1:1 THERAPEUTIC INTERVENTIONS EFFECTIVE FOR SHORT PERIODS OF TIME DUE TO COGNITION. PATIENT ISOLATIVE AND WITHDRAWN AT TIMES WITH LIMITED INTERACTION WITH PEERS IN DINING AREA. THIS NURSE REVIEWED MEDICATION AT HS AT PATIENT REQUEST. PATIENT TOOK MEDICATION WITH ENCOURAGEMENT. PATIENT CONTINENT AND INCONTINENT OF BLADDER. PATIENT CONTINENT OF BOWEL. NOURISHEMENT OFFERED BUT PATIENT REFUSED AT HS. PATIENT PROVIDED FLUIDS P-CONTINUE TO ENCOURAGE MEDICATION COMPLIANCE, CONTINUE TO PRESENT REALTIY ORIENTATION, ENCOURAGE GROUP THERAPY WHILE AWAKE
--- NOTE | 2018-10-29 01:13 | NUR ---
24 HR chart check completed.
--- NOTE | 2018-10-29 06:34 | NUR ---
PATIENT SLEPT 8 HOURS OF UNINTERRUPTED SLEEP THROUGHOUT SHIFT. Q 15 MINUTE CHECKS MAINTAINED
[2018-10-29 07:17] LABS: INTERNATIONAL NORM RATIO 1.2 (2.0-3.5)
[2018-10-29 07:36] VITALS: BP 150/60
--- NOTE | 2018-10-29 09:00 | NUR ---
Nursing screen and Occupational Therapy referral received. Thank you. Dorie López OTR/l
--- NOTE | 2018-10-29 09:30 | NUR ---
Treatment Plan meeting with Dr. Nguyen, RN, AT, SW and Cad Intern. Plan for discharge at the end of the week. Pt. to return to [facility].
--- NOTE | 2018-10-29 11:00 | NUR ---
DR. WEST ON UNIT TO ASSESS PATIENT.
--- NOTE | 2018-10-29 11:51 | NUR ---
AM GROUP/EXERCISES PT IN ATTENDANCE BUT SLEEPING IN RECLINER. PT DID NOT WAKE TO PARTICIPATE. PT WILL CONTINUE TO ATTEND FUTURE SESSIONS AND WILL BE ENCOURAGED TO PARTICIPATE TO BEST OF PT ABILITY.
--- NOTE | 2018-10-29 14:24 | NUR ---
P: HALLUCINATIONS, MOOD IRRITIABILITY I: PROVIDE ONE ON ONE; REORIENT TO REALITY, REDIRECTION AND PROVIDE SPACE. R: PROVIDING SPACE AND ONE ON ONE EFFECTIVE P: CONTINUE TO PROVIDE NON PHARMALOGICAL INTERVENTIONS, ONE ON ONE NEEDED. PATIENT IS ALERT TO PERSON WITH CONFUSION; PATIENT BELIEVES SHE IS IN A APARTMENT COMPLEX. UNABLE TO RECALL TIME AND SITUATION; MOOD IS IRRITABLE AT TIMES. PATIENT HAVING DELUSIONS: REQUESTING TO SEE THE PAPER, STATES THAT HER AUNT OBITUARY IS IN THE PAPER. PATIENT REORIENT TO PLACE, TIME AND SITUATION AND EFFECTIVE. DENIES ANY HALLUCINATIONS, HI/SI OR PAIN. MEDICATION COMPLAIN WITH ENCOURAGEMENT. A LITTLE SARCASTIC DURING MORNING INTERACTIONS, SPACE PROVIDED. Q 15 MINUTE SAFETY CHECKS MAINTAINED. 1-2 PERSON ASSIST WITH ACTIVITIES OF DAILY LIVING, INCONTINENT OF BOWEL AND BLADDER. SET UP FOR MEALS, INTAKES ARE GOOD WITH ADEQUATE FLUIDS. CONTINUE TO MONITOR MOOD AND HALLUCINATIONS, PROVIDE ONE ON ONE AND REDIRECTION NEEDED.
--- NOTE | 2018-10-29 14:32 | NUR ---
Patient not available for Occupational Therapy evaluation as she was in group therapy session. Dorie López OTR/L
--- NOTE | 2018-10-29 14:37 | NUR ---
PHYSICAL THERAPY PAtient sleeping in group at this time. Mirtha Palacio,PT
--- NOTE | 2018-10-29 15:50 | NUR ---
PM GROUP/MUSIC/LEISURE SKILLS PT ATTENDED GROUP BUT UNABLE TO PARTICIPATE DUE TO LEVELS OF CONFUSION. PT EXPRESSED CONCERN OVER HER AUNTS LOST OBITUARY. PT REDIRECTED A COUPLE OF TIMES THROUGHOUT GROUP DUE TO CONFUSION. PT WILL CONTINUE TO ATTEND AND BE ENCOURAGED TO PARTICIPATE TO BEST OF ABILITY.
--- NOTE | 2018-10-29 16:00 | NUR ---
Clinical Updates faxed to [facility].
--- NOTE | 2018-10-29 16:16 | NUR ---
Collaborated with tx team and aftercare mtg regarding pt discharge plan and resources for the blind on our unit. Silver Service Waiter will inquire.
--- NOTE | 2018-10-29 16:39 | NUR ---
DR. MANTILLA NOTIFIED OF INR LEVEL.
[2018-10-29 20:00] VITALS: BP 118/55
--- NOTE | 2018-10-29 23:41 | NUR ---
P-CONFUSION, PREOCCUPIED WITH MEDICATIONS. 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 PATIENT WITH NO HALLUCINATIONS OR DELUSIONS. PATIENT WITH NO SUICIDAL OR HOMICIDAL IDEATIONS. PATIENT PREOCCUPIED WITH MEDICATIONS AND REQUESTING MORE INFORMATION ABOUT THE MEDICATION THAT SHE TAKES AT . THIS NURSE EDUCATED PATIENT ABOUT HER MEDICATIONS AND WHAT THE MEDICATIONS ARE USED FOR. I-REDIRECTION WITH 1:1 THERAPEUTIC INTERVENTIONS AND PRESENT REALITY ORIENTATION. EDUCATE AND ENCOURAGE MEDICATION COMPLIANCE. R-PRESENTING REALITY AND REDIRECTION WITH 1:1 THERAPEUTIC INTERVENTIONS EFFECTIVE FOR SHORT PERIODS OF TIME DUE TO COGNITION. PATIENT ISOLATIVE AND WITHDRAWN AT TIMES. PATIENT TOOK MEDICATION WITH ENCOURAGEMENT. PATIENT CONTINENT AND INCONTINENT OF BLADDER. NOURISHEMENT AND FLUIDS PROVIDED. P-CONTINUE TO ENCOURAGE MEDICATION COMPLIANCE, CONTINUE TO PRESENT REALTIY ORIENTATION, ENCOURAGE GROUP THERAPY WHILE AWAKE
--- NOTE | 2018-10-30 05:56 | NUR ---
PATIENT SLEPT >8 HOURS OF INTERRUPTED SLEEP THROUGHOUT SHIFT. Q 15 MINUTE CHECKS MAINTAINED
--- NOTE | 2018-10-30 06:38 | NUR ---
24 HR chart check completed.
[2018-10-30 08:00] VITALS: BP 140/52
--- NOTE | 2018-10-30 11:29 | NUR ---
Occupational Therapy evaluation completed on 3 with full eval to follow. PRecautions include fall risk, 3N unit precautions.low vision deficit,BLE edema,moderate complexity level [id number] via chart review, testing and evaluation. Recommend OT per POC and return to SNF upon discharge. Thank you. Dorie López OTR/l
--- NOTE | 2018-10-30 11:45 | NUR ---
AM GROUP/BIRDHOUSES PT DID NOT ATTEND MORNING GROUP THERAPY. PT STAYED IN THE DAYROOM WITH NURSES. PT WAS SLEEPING RECLINED IN A CHAIR. PT IS UNABLE TO PARTICIPATE AT THIS TIME DUE TO COGNITIVE IMPAIRMENT
--- NOTE | 2018-10-30 11:50 | NUR ---
PHYSICAL THERAPY PAtient evaluated on 3, full evaluation to follow. Continue with PT as per plan of care with fall, mod (A) x 1-2, unti three, poor vision and acute debility precautions. Will require SNF. PAtient is high complexity via chart review, tests and evaluation: [id number]. Thank you for this referral. Mirtha Palacio,PT
--- NOTE | 2018-10-30 12:00 | NUR ---
Shift chart check completed.
--- NOTE | 2018-10-30 12:04 | NUR ---
PER PHONE CALL FROM REJI, PT IS APPROVED 10/29-10/31. NEXT REVIEW DATE 10/31. WILL CONTINUE TO FOLLOW.
--- NOTE | 2018-10-30 14:12 | NUR ---
PATIENT ALERT AND INTERMITTENT CONFUSION NOTED. PATIENT HAS A FLAT AFFECT. ST/LT MEMORY DEFICITS NOTED. PATIENT PARTICIPATING IN AFTERNOON GROUP, DID REFUSED TO ATTEND MORNING GROUP. PATIENT BLIND BUT STATES THAT SHE CAN SEE SHAPES. MEDICATION COMPLIANT WITH EDUCATION ON EACH MEDICATION. DENIES HALLUCINATIONS, DELUSIONS, SI, HI, OR PAIN. NO INTERACTING WITH INTERNAL STIMULI NOTED. PATIENT ISOLATIVE TO SELF, UNTIL SPOKEN TO FIRST THEN WILL ENGAGE IN SHORT CONVERSATION. EATING ALL MEALS AND DRINKING ADEQUATELY. FALLING STAR PROGRAM IN PLACE. BLIND PRECAUTIONS IN PLACE. Q15 MINUTE CHECKS MAINTAINED FOR SAFETY.
--- NOTE | 2018-10-30 14:56 | NUR ---
[facility] NOTIFIED THAT PT IS BEING DISCHARGED TODAY AFTER DAUGHTER GETS DONE WORK AT 3PM. FAXED ORDER TO [facility] TO OFFICE.
--- NOTE | 2018-10-30 15:40 | NUR ---
PM GROUP/MEDITATION PT WAS PRESENT FOR GROUP RECLINING IN A ANIRUDH CHAIR LISTENING TO THE MUSIC. PT EXHIBITED NO IRRITATION OR SIGNS OF PARANOIA DURING GROUP.
[2018-10-30 19:53] VITALS: BP 129/50
--- NOTE | 2018-10-30 21:47 | NUR ---
Patient is alert to person and place. Patient is medication compliant without any difficulty. Patient has ST/LT memory deficits. Patient denies any hallucinations/delusions at this time. No SI/HI noted at this time. Q15 minute safety checks continued and maintained. See [facility] flowsheet for further documentation.
--- NOTE | 2018-10-31 00:43 | NUR ---
24 HR chart check completed.
--- NOTE | 2018-10-31 05:07 | NUR ---
Patient slept approx. 8 hours throughout shift. Q 15 minute safety checks continued and maintained.
--- NOTE | 2018-10-31 07:00 | NUR ---
PHYSICAL THERAPY Patient seen this am for therapy visit and was semi reclined in activity room radha chair upon therapist arrival. OT vet assistant present for observation only during HIDE HANDLER visit with patient voicing no new c/o's at this time. Patient presents with increased vision deficits, requiring therapist vision assist to maintain good standing safety awareness. Patient transfers sit to stand Mod A, ambulating 25'x 1, APPRENTICE PHOTOGRAPHER/Min, while demonstrating very slow bello and decreased stride. Patient also a little unsteady during 90/180 turns and returned to Radha chair in activity room following treatment. Patient remained with body alarm, under [facility] staff Supervision and will continue per POC as tolerated. Total treatment time 14 minutes. Carlitos Canchola, JESSE
--- NOTE | 2018-10-31 07:15 | NUR ---
OT NOTE Pt was seen this A.M. 1:1 for 15 minute OT session with CONDITIONING COACH and nursing staff present for observation only. Upon arrival pt was sitting upright in derick chair in dining room. Pt identified by name and and had no complaints at this time. Pt was taken out into the hallway where she completed sit to stand transfer from chair level with Ej and use of hand rail for UE support. Challenged pt's static standing tolerance needed for increased I in self care tasks and functional transfers, pt was able to tolerate aprox 45-60 seconds at a time before sitting due to fatigue. Pt then completed BUE towel exercises over all planes of motion for 1 X 10 to increase UE strength needed for increased I in functional transfers. Pt was left sitting upright in derick chair in the dining room under [facility] staff supervision. Continue with rec D[facility]C [facility] CHERISE Schwartz/Zaynab
[2018-10-31 07:26] VITALS: BP 141/63
--- NOTE | 2018-10-31 07:30 | NUR ---
PT AWAKE, ALERT, SITTING IN DINING ROOM AT THIS TIME RECIEVING RESPIRATORY TREATMENT.
--- NOTE | 2018-10-31 07:47 | NUR ---
PT REPEATEDLY SAYING SHE CANNOT FIND HER EGG (ON HER BREAKFAST TRAY) WHILE EATING HER SCRAMBLED EGGS. REORIENTED WITHOUT EFFECT.
[2018-10-31 07:57] LABS: INTERNATIONAL NORM RATIO 1.5 (2.0-3.5)
--- NOTE | 2018-10-31 09:17 | NUR ---
Treatment Plan meeting with Dr. Nguyen, RN, AT, and Law Professor. Plan for discharge . Pt. to return to [facility].
--- NOTE | 2018-10-31 10:03 | NUR ---
ALERT AND ORIENTED TO PERSON, PLACE, AND APPROXIMATE TIME WITH MEMORY GAPS NOTED. MEDICATION COMPLIANT WITHOUT DIFFICULTY. ABLE TO VERBALIZE REASON FOR HER MEDICATIONS. NAPS INTERMITTENTLY T/O THE MORNING. APPETITE GOOD FOR BREAKFAST. NO AGGRESSION OR AGITATION NOTED. CALM AND COOPERATIVE WITH STAFF. DENIES ANY SENSORY DISTURBANCES AND NONE ARE NOTED. ABLE TO ANWSER SIMPLE QUESTIONS APPROPRIATELY. NO ACUTE CHANGES NOTED IN MOOD AND BEHAVIOR, WILL CONTINUE TO MONITOR. DENIES ANY SI/HI. Q15 MIN OBSERVATION CHECKS PER ORDERS CONTINUE.
--- NOTE | 2018-10-31 11:35 | NUR ---
ON UNIT TO ASSESS PT. MADE AWARE OF PT/INR RESULTS. NNO RECEIVED.
--- NOTE | 2018-10-31 11:47 | NUR ---
AM GROUP PT WAS PRESENT FOR MORNING GROUP THERAPY RECLINED IN A CHAIR SLEEPING. PT IS UNABLE TO PARTICIPATE AT THIS TIME DUE TO VISUAL AND COGNITIVE IMPAIRMENT.
--- NOTE | 2018-10-31 14:46 | NUR ---
Collaborated in tx team regarding plan for discharge. Pt appeared tired.
--- NOTE | 2018-10-31 15:36 | NUR ---
PM GROUP/RELAXATION PT DID NOT ATTEND AFTERNOON GROUP. PT STAYED IN THE DAY ROOM WITH THE NURSE.
--- NOTE | 2018-10-31 16:11 | NUR ---
REVIEWED CALL TO REJI.
[2018-10-31 17:04] VITALS: BP 124/52
[2018-10-31 20:00] VITALS: BP 120/55
--- NOTE | 2018-11-01 00:50 | NUR ---
PATIENT ALERT AND ORIENTED TO PERSON AND PLACE. PATIENT WAS IRRITABLE WHEN TALKING WITH HER. PATIENT STATED, "I AM TIRED AND WANT TO GO TO SLEEP. CAN I JUST GET MY MEDICINE NOW, EAT SNACK, AND JUST GO TO SLEEP". PATIENT MEDICATION COMPLIANT, WITH EDUCATION PROVIDED WITH EACH MED. DENIES HALLUCINATIONS, DELUSIONS, SI OR HI, OR PAIN AT THIS TIME. NO SIGNS OR SYMPTOMS OF INTERACTING WITH INTERNAL STIMULI. AFTER PATIENT WAS DONE EATING SNACK, ASSISTED TO BED WITH TWO ASSIST. PATIENT WAS INCONTINENT OF URINE. ASSISTED PATIENT IN CLEANING UP. AFTER PATIENT WAS CLEANED UP SHE STATED "THANK YOU SO MUCH, GOOD NIGHT HUNNY". FALLING STAR PROGRAM MAINTAINED FOR PATIENT SAFETY. Q15 MINUTE CHECKS MAINTAINED FOR SAFETY.
--- NOTE | 2018-11-01 00:59 | NUR ---
24 HR chart check completed.
--- NOTE | 2018-11-01 06:53 | NUR ---
PATIENT SLEPT ALL NIGHT WITHOUT INTERRUPTIONS. Q15 MINUTE CHECKS MAINTAINED FOR SAFETY.
--- NOTE | 2018-11-01 07:30 | NUR ---
OT NOTE Pt was seen this A.M. 1:1 for 15 minute OT session with nursing staff present for observation only. Upon arrival pt was sitting reclined in derick chair in dining room. Pt identified by name and and reports of 7/10 LLE pain "all over". Pt was taken out into the hallway where she completed multiple sit to stand transfers from chair level with Ej and use of hand railing for UE support. Challenged pt's static standing tolerance needed for increased I in self care tasks and functional transfers and pt was able to tolerate aprox 1 minute at a time before sitting due to fatigue. Seated rest breaks taken between reps. Pt then completed BUE towel exercises over all planes of motion with emphasis on triceps for 1 X 10 to increase UE strength needed for functional transfers. Pt was left sitting upright in the derick chair in the dining room under [facility] staff supervision with body alarm on for safety. Continue with rec D/C plan [facility] to [facility]. CHERISE Schwartz/Zaynab
[2018-11-01 07:34] LABS: INTERNATIONAL NORM RATIO 1.6 (2.0-3.5)
--- NOTE | 2018-11-01 08:00 | NUR ---
Treatment Plan meeting with Dr. Nguyen, RN, AT, and Contracts Administrator. Plan for discharge today. Pt. to return to [facility]. [facility] Van to pick patient up at 3:00 p.m.
--- NOTE | 2018-11-01 08:30 | NUR ---
PT ALERT AND ORIENTED TO PERSON AND PLACE, OTHERWISE CONFUSED WITH ST/LT MEMORY DEFICITS. MOST NEEDS AND WANTS ANTICIPATED BY STAFF DUE TO COGNITION AND CONFUSION. MOOD IS STABLE AND EUTHYMIC WITH FLAT AFFECT. JOKING WITH STAFF. APPETITE GOOD FOR MEALS WITH STAFF ASSIST AND TRAY SET UP. MOD/MAX ASSIST OF 2 STAFF REQUIRED FOR ADLS, TOILETING, AND TRANSFERS. INCONTINENT WITH EPISODES OF CONTINENCE. INCONTINENCE CARE PROVIDED NEEDED. MEDICATION COMPLIANT WITHOUT DIFFICULTY. DENIES ANY SI/HI. DENIES ANY SENSORY DISTURBANCES AND NONE ARE NOTED. PT NAPS INTERMITTENTLY T/O THE DAY. NO AGGRESSION OR COMBATIVE BEHAVIORS NOTED. COMPLIANT WITH HOC AND THANKED RN'S AFTER ASSISTING PT TO CHANGE CLOTHES. FALL PRECAUTIONS MAINTAINED. Q15 MIN OBSERVATION CHECKS MAINTAINED PER POLICY.
[2018-11-01 08:40] VITALS: BP 150/52
[2018-11-01] MEDS ORDERED: RISPERIDONE0.5 MG PO (09:04)
[2018-11-01] MEDS ORDERED: MIRTAZAPINE15 M2 PO (09:04)
[2018-11-01] MEDS ORDERED: RISPERIDONE1 MG PO (09:04)
[2018-11-01] MEDS ORDERED: EXELON13.3 MG/21 T (09:04)
[2018-11-01] MEDS ORDERED: MEMANTINE HCL10 MG PO (09:04)
--- NOTE | 2018-11-01 11:32 | NUR ---
NURSE TO NURSE GIVEN TO TARA AT [facility] AT THIS TIME. MADE AWARE OF TODAYS PT/INR RESULTS AND COUMADIN.
--- NOTE | 2018-11-01 11:44 | NUR ---
AM GROUP/LEISURE INTERESTS PT WAS PRESENT FOR MORNING GROUP THERAPY DOZING WHILE RECLINED IN A CHAIR. PT WOULD AWAKEN AND ASK FOR A BEVERAGE AND THEN FALL BACK TO SLEEP. PT IS UNABLE AT THIS TIME TO PARTICIPATE. PT WILL BE DISCHARGED THIS AFTERNOON
[2018-11-01] MEDS ORDERED: SIMVASTATIN10 MG PO (12:25)
[2018-11-01] MEDS ORDERED: COUMADIN3 M1 PO (12:25)
--- NOTE | 2018-11-01 14:45 | NUR ---
Discharge instructions reviewed with facility nruse. Follow-up care arranged. Written instructions given to facility and sent to guardian.
--- NOTE | 2018-11-01 14:55 | NUR ---
Collaborated in tx team and aftercare mtg and completed discharge ppwk. When met with the pt pt indicated she was doing okay and then was provided reassurance and positive thinking strategies and identified several positives from the day.
--- NOTE | 2018-11-01 15:53 | NUR ---
PHYSICAL THERAPY CO-SIGN I approve of the Phyical Therapy notes written above. BRANNON ADAM PT
[2019-01-29] MEDS ORDERED: COUMADIN2 M1 PO (03:07)
[2019-01-29] MEDS ORDERED: CYMBALTA20 M1 PO (03:10)
[2019-01-29] MEDS ORDERED: ERGOCAL2500 UNIT PO ×2 (03:12→03:29)
[2019-01-29] MEDS ORDERED: LANTUS SOL100 UNIT/1 SQ (03:19)
[2019-01-29] MEDS ORDERED: CALMOSEPTINE OI71 GM T (03:26)
[2019-01-29] MEDS ORDERED: CLOPIDOGREL75 MG PO (03:27)
[2019-02-01] MEDS ORDERED: ERTAPENEM1 GM IV (16:06)
[2019-03-05] MEDS ORDERED: B121000 MCG/2 IM (13:56)
[2019-03-28] MEDS ORDERED: CIPROFLOXACIN500 M4 PO (22:54)
[2019-03-28] MEDS ORDERED: RIVASTIGMINE TAR6 M1 PO (23:11)
[2019-03-28] MEDS ORDERED: LASIX20 MG PO (23:14)
[2019-03-28] MEDS ORDERED: MILK OF MA400 MG/5 M PO (23:17)
[2019-04-04] MEDS ORDERED: COUMADIN4 M2 PO (14:12)
[2019-04-04] MEDS ORDERED: FUROSEMIDE40 MG PO (14:12)
[2019-04-04] MEDS ORDERED: FLUCONAZOLE100 MG PO (14:12)
== END 2018-11-01 14:45 | disposition other institution (70) | DRG 885 ==
LOC: 3N 12:41
PROVIDERS: Internal Medicine; ADMIT Psychiatry & Neurology Psychiatry
DX: F33.3 Major depressive disorder, recurrent, severe with psychotic symptoms (principal); E43 Unspecified severe protein-calorie malnutrition; I50.32 Chronic diastolic (congestive) heart failure; N18.4 Chronic kidney disease, stage 4 (severe); I13.0 Hypertensive heart and chronic kidney disease with heart failure and stage 1 through stage 4 chronic kidney disease, or unspecified chronic kidney disease; G30.9 Alzheimer's disease, unspecified; F02.80 Dementia in other diseases classified elsewhere, unspecified severity, without behavioral disturbance, psychotic disturbance, mood disturbance, and anxiety; J45.909 Unspecified asthma, uncomplicated; I25.10 Atherosclerotic heart disease of native coronary artery without angina pectoris; E11.22 Type 2 diabetes mellitus with diabetic chronic kidney disease; E78.5 Hyperlipidemia, unspecified; E66.9 Obesity, unspecified; H35.30 Unspecified macular degeneration; E11.65 Type 2 diabetes mellitus with hyperglycemia; E53.8 Deficiency of other specified B group vitamins; M15.9 Polyosteoarthritis, unspecified; I87.2 Venous insufficiency (chronic) (peripheral); Z96.659 Presence of unspecified artificial knee joint; Z79.1 Long term (current) use of non-steroidal anti-inflammatories (NSAID); Z88.0 Allergy status to penicillin; Z91.81 History of falling; Z87.81 Personal history of (healed) traumatic fracture; Z79.4 Long term (current) use of insulin; Z88.1 Allergy status to other antibiotic agents; Z91.041 Radiographic dye allergy status; Z86.718 Personal history of other venous thrombosis and embolism; Z85.89 Personal history of malignant neoplasm of other organs and systems; Z95.1 Presence of aortocoronary bypass graft; Z90.710 Acquired absence of both cervix and uterus; Z82.49 Family history of ischemic heart disease and other diseases of the circulatory system; Z80.51 Family history of malignant neoplasm of kidney; Z79.899 Other long term (current) drug therapy; Z68.27 Body mass index [BMI] 27.0-27.9, adult